=== PATIENT | male | born 2000 | race Two or more races ===

== ENCOUNTER 2023-07-22 13:54 | Outpatient (OUT) | payer OTHER, SELFPAY ==
[2023-07-22 14:24] LABS: Basophils Percent Auto 0.4 % (0.2-2.0); Eosinophils Percent Auto 0.6 % (0.9-7.0); Hematocrit 46.1 % (42.0-54.0); Hemoglobin 15.9 g/dL (14.0-18.0); Immature Granulocytes Abs Auto 0.01 10^3/uL (0.00-0.03); Immature Granulocytes Pct Auto 0.2 % (0.0-0.5); Lymphocytes Absolute Auto 1.4 10^3/uL (1.2-3.8); Lymphocytes Percent Auto 29.4 % (20.5-60.0); Mean Corpuscular HGB Conc 34.5 g/dL (29.9-35.2); Mean Corpuscular Hemoglobin 29.2 pg (25.9-34.0); Mean Corpuscular Volume 84.7 fL (80.0-94.0); Mean Platelet Volume 9.7 fL (9.5-13.5); Monocytes Absolute Auto 0.5 10^3/uL (0.3-0.8); Monocytes Percent Auto 10.2 % (1.7-12.0); Neutrophils Absolute Auto 2.7 10^3/uL (1.4-6.5); Neutrophils Percent Auto 59.2 % (43.0-75.0); Platelet Count 254 10^3/uL (150-450); Red Blood Count 5.44 10^6/uL (4.70-6.10); Red Cell Distribution Width 12.4 % (11.0-15.0); White Blood Count 4.6 10^3/uL (4.0-11.0)
[2023-07-22 15:02] LABS: Alanine Aminotransferase 24 U/L (16-63); Albumin Globulin Ratio 1.4; Albumin Level 4.7 g/dL (3.4-5.0); Alkaline Phosphatase 97 U/L (46-116); Anion Gap 11.5; Aspartate Amino Transferase 20 U/L (15-37); BUN Creatinine Ratio 9.6; Bilirubin Total 2.1 mg/dL (0.2-1.0); Calcium 9.1 mg/dL (8.5-10.1); Carbon Dioxide 30.1 mmol/L (21.0-32.0); Chloride 101 mmol/L (98-107); Chol HDL Ratio 4.3; Cholesterol 216 mg/dL (<=200); Estimated GFR (African America >60 (>=60); Estimated GFR (Non-African Ame >60 (>=60); Globulin 3.4 g/dL; Glucose 79 mg/dL (74-106); HDL Cholesterol 50 mg/dL (40-60); Potassium 3.6 mmol/L (3.5-5.1); Sodium 139 mmol/L (136-145); Total Protein 8.1 g/dL (6.4-8.2); Triglycerides 158 mg/dL (<=150); VLDL CHOLESTEROL 31.6 mg/dL
[2023-07-22 15:21] LABS: Estimated Average Glucose 91 mg/dL; Glycohemoglobin A1C 4.8 % (4.5-6.2)
[2023-07-23 05:07] LABS: HCV Ab Non Reactive (Non Reactive); HIV Ab/p24 Ag Screen Non Reactive (Non Reactive)
== END 2023-07-22 13:55 | disposition home or self-care (01) ==
PROVIDERS: PCP Nurse Practitioner Primary Care; Visit Provider Nurse Practitioner Primary Care
DX: Z00.00 Encounter for general adult medical examination without abnormal findings (principal); Z11.59 Encounter for screening for other viral diseases; Z13.6 Encounter for screening for cardiovascular disorders; Z11.4 Encounter for screening for human immunodeficiency virus [HIV]
CPT/HCPCS: 36415; 80053; 80061; 83036; 85025; 86803; 87389

== ENCOUNTER 2023-07-25 12:55 | Outpatient (OUT) | payer OTHER, SELFPAY ==
--- NOTE | 2023-07-25 | US_ITS ---
The [address] [address] Patient Name: MIRIAM MCKEON MRN: [id number] date: 2000 Sex: M Assigned Patient Location: US Current Patient Location: US Accession/Order Number: [id number] Exam Date: 07/25/2023 13:06 Report Date: 07/25/2023 13:54 At the request of: MILAGRO BYRNE Procedure: US right upper quadrant EXAM: US right upper quadrant HISTORY: elevated liver enzymes R74.8 COMPARISON: None. TECHNIQUE: Real-time Limited abdomen ultrasound. Findings: Evaluation of the pancreas is limited due to overlying bowel gas. The hepatic parenchyma is unremarkable. No focal intrahepatic mass. The main portal vein is patent and demonstrates hepatopedal flow. The gallbladder is fluid-filled and unremarkable without evidence of stones, wall thickening or pericholecystic fluid. The technologist reports a negative sonographic Whitlock's sign. No biliary ductal dilatation. The common bile duct measures 0.5 cm. The right kidney measures 10.0 cm. There is good corticomedullary differentiation. No renal stones or collecting system dilatation. No focal mass or perinephric fluid collection. US/US right upper quadrant IMPRESSION: 1. Unremarkable sonographic appearance of the right upper quadrant. Electronically authenticated by: DAQUAN ALLEN Date: 07/25/2023 13:54
== END 2023-07-25 12:56 | disposition home or self-care (01) ==
LOC: US 12:55
PROVIDERS: PCP Nurse Practitioner Primary Care; Visit Provider Nurse Practitioner Primary Care
DX: R74.8 Abnormal levels of other serum enzymes (principal)
CPT/HCPCS: 76705

== ENCOUNTER 2024-04-28 12:38 | Emergency (ER) | payer OTHER, SELFPAY ==
[2024-04-28 12:44] VITALS: BP 140/73; PULSE 64; TEMP 36.9; O2SAT 98; BMI 26.6
--- OUTSIDE RECORDS SUMMARY | 2024-04-28 12:52 | XMS_ITS | CCD ---
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 Role Phone Rachell Pickard Unavailable Unavailable Unavailable Unavailable Unavailable Unavailable Primary Care Provider UnavailBlue De Los Santos Unavailable Nuria [facility]- Marito T Primary Care Provider SIDDHARTH Hernandez Attending Provider Nuria, Marito T Primary Care Unavailable Blue Hernandez Attending Unavailable Blue Hernandez Admitting Unavailable Blue Hernandez Attending Unavailable Blue Hernandez Admitting Unavailable Shammo Marito T Primary Care Unavailable NONE, XXXX Primary Care Physician Unavailab MELONY Ahuja Referring Unavailable MELONY ALVARADO Attending Unavailable ASTRID TOLEDO Attending UnavailASTRID Navas Admitting UnavailASTRID Navas Attending Unavailbryn QUIÑONES MARITO Referring Unavailable Miki ARORA Attending Unavailable Melanie Marshall Attending Unavailable Allergies Allergy Classification Reported Allergen(s) Allergy Type Date of Onset Reaction(s) Facility (2 sources) No Known Medication Allergies; Translations: [No Known Medication Allergies] Propensity to adverse reactions (disorder) [facility] Repository Medications Current Medications Medication Drug Class(es) Dates Sig (Normalized) Sig (Original) predniSONE 10 mg oral tablet (3 sources) Start: 06-14-2021 predniSONE (DELTASONE) 10 MG tablet Indications: Contusion of left foot, initial encounter , Contusion of left ankle, initial encounter 6 pills QD x1, 5 pills QD X1, 4 pills QD X1, 3 pills QD X1, 2 pills QD X1, 1 pill QD X1 day, half pill QD X2 day. With full meal. 22 tablet 0 06/14/2021 Active Completed/Discontinued Medications Medication Drug Class(es) Dates Sig (Normalized) Sig (Original) ibuprofen 600 mg oral tablet (1 source) Nonsteroidal Anti-inflammatory Drug Start: 05-19-2021 End: 05-19-2021 ibuprofen (ADVIL;MOTRIN) tablet 600 mg naproxen 500 mg oral tablet (1 source) Nonsteroidal Anti-inflammatory Drug Start: 06-06-2020 take 1 tablet by mouth twice daily as needed Naproxen 500 MG Oral Tablet Take 1 tablet twice daily as needed Quantity: 14 Refills: 0 Rachell Pickard PA-C Start : 06-Jun-2020 Active Problems Active Problems Problem Classification Problem Date Documented Da te Episodic/Chronic Anxiety disorders (4 sources) Anxiety 11-13-2023 Chronic Hemorrhoids (1 source) Hemorrhoids; Translations: [Unspecified hemorrhoids] Onset: 04-26-2024 Episodic Mood disorders (4 sources) Depressive disorder 11-13-2023 Chronic Other gastrointestinal disorders (1 source) Constipation, unspecified; Translations: [Constipation, unspecified] Onset: 04-26-2024 Episodic Other liver diseases (3 sources) Jaundice; Translations: [Unspecified jaundice] Episodic Other liver diseases (2 sources) Unspecified jaundice Episodic Other nervous system disorders (4 sources) 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 Comment on above: L arm Ulnar Nerve Tr ansposition and fractional lengthening of FCU Other non-traumatic joint disorders (1 source) Shoulder pain; Translations: [Shoulder pain] Episodic Sprains and strains (1 source) Shoulder strain; Translations: [Shoulder strain, right, initial encounter] Episodic Superficial injury; contusion (1 source) Contusion of heel; Translations: [Contusion of left foot, initial encounter] Episodic Unclassified (1 source) Unspecified jaundice; Translations: [Unspecified jaundice] Onset: 09-17-2023 Past or Other Problems Problem Classification Problem Date Documented Da te Episodic/Chronic Viral infection (1 source) Disease caused by 2019-nCoV; Translations: [COVID-19] Onset: 03-12-2024 NEGATED: Highlighted row has not occurred!Residual codes; unclassified (2 sources) Disease Episodic Results Test Name Value Interpretation Reference Range Facility Ambulatory Visit Summaryon 0 04-26-2024 Ambulatory Visit Summary Ambulatory Visit Summary TAZ MCKEON :2000 Visit Date:04/26/2024 Ambulatory Visit Instructions Your Diagnosis Constipation in male Hemorrhoid Your Care Team Attending Physician - Shannan Alford Primary Care Physician - NONE, XXXX Procedures Performed Extraction of wisdom tooth, Procedure on elbow, Ts and As - Tonsillectomy and adenoidectomy. Discharge Vitals Temperature (Tympanic) 36.6 ?C Heart Rate (Peripheral) 43 Blood Pressure 110/75 Height 176 cm Height 69 in Weight 75 kg Weight 165 lb BMI 24.21 Allergies No Known Medication Allergies Problems Ongoing - Any problem that you are currently receiving treatment for. Anxiety Depression Patient Survey You may receive a survey via text or e-mail asking about your office visit. Please share your experience with us by completing your survey. We appreciate your feedback and thank you for choosing us for your care. Education Materials Hemorrhoids Hemorrhoids are swollen veins that may develop: ? In the butt (rectum). These are called internal hemorrhoids. ? Around the opening of the butt (anus). These are called external hemorrhoids. Hemorrhoids can cause pain, itching, or bleeding. Most of the time, they do not cause serious problems. They usually get better with diet changes, lifestyle changes, and other home treatments. What are the causes? This condition may be caused by: ? Having trouble pooping (constipation). ? Pushing hard (straining) to poop. ? Watery poop (diarrhea). ? . ? Being very overweight (obese). ? Sitting for long periods of time. ? Heavy lifting or other activity that causes you to strain. ? Anal sex. ? Riding a bike for a long period of time. What are the signs or symptoms? Symptoms of this condition include: ? Pain. ? Itching or soreness in the butt. ? Bleeding from the butt. ? Leaking poop. ? Swelling in the area. ? One or more lumps around the opening of your butt. How is this diagnosed? A doctor can often diagnose this condition by looking at the affected area. The doctor may also: ? Do an exam that involves feeling the area with a gloved hand (digital rectal exam). ? Examine the area inside your butt using a small tube (anoscope). ? Order blood tests. This may be done if you have lost a lot of blood. ? Have you get a test that involves looking inside the colon using a flexible tube with a camera on the end (sigmoidoscopy or colonoscopy). How is this treated? This condition can usually be treated at home. Your doctor may tell you to change what you eat, make lifestyle changes, or try home treatments. If these do not help, procedures can be done to remove the hemorrhoids or make them smaller. These may involve: ? Placing rubber bands at the base of the hemorrhoids to cut off their blood supply. ? Injecting medicine into the hemorrhoids to shrink them. ? Shining a type of light energy onto the hemorrhoids to cause them to fall off. ? Doing surgery to remove the hemorrhoids or cut off their blood supply. Follow these instructions at home: Eating and drinking ? Eat foods that have a lot of fiber in them. These include whole grains, beans, nuts, fruits, and vegetables. ? Ask your doctor about taking products that have added fiber (fibersupplements). ? Reduce the amount of fat in your diet. You can do this by: ? Eating low-fat dairy products. ? Eating less red meat. ? Avoiding processed foods. ? Drink enough fluid to keep your pee (urine) pale yellow. Managing pain and swelling ? Take a warm-water bath (sitz bath) for 20 minutes to ease pain. Do this 3?4 times a day. You may do this in a bathtub or using a portable sitz bath that fits over the toilet. ? If told, put ice on the painful area. It may be helpful to use ice between your warm baths. ? Put ice in a plastic bag. ? Place a towel between your skin and the bag. ? Leave the ice on for 20 minutes, 2?3 times a day. General instructions ? Take oqaz-xen-hkcshuz and prescription medicines only as told by your doctor. ? Medicated creams and medicines may be used as told. ? Exercise often. Ask your doctor how much and what kind of exercise is best for you. ? Go to the bathroom when you have the urge to poop. Do not wait. ? Avoid pushing too hard when you poop. ? Keep your butt dry and clean. Use wet toilet paper or moist towelettes after pooping. ? Do not sit on the toilet for a long time. ? Keep all follow-up visits as told by your doctor. This is important. Contact a doctor if you: ? Have pain and swelling that do not get better with treatment or medicine. ? Have trouble pooping. ? Cannot poop. ? Have pain or swelling outside the area of the hemorrhoids. Get help right away if (more content not included)... [facility] Office/Clini c Noteon 04-26-2024 Family Medicine Office/Clinic Note Family Medicine Office/Clinic Note Chief Complaint blood in stool, headache HPI Staff 24 year old male presents with blood in stool, headaches and weakness since this morning History of Present Illness I have reviewed and verified the staff HPI to be accurate for this encounter. Portions of this record have been created with voice recognition software. Occasional wrong-word or ?eofhf-p-zidr? substitutions may have occurred due to the inherent limitations of voice recognition software. 24-year-old male presents with complaints of constipation and blood when wiping with bowel movement this morning. States he has been battling constipation issues and sometimes only goes once every week or so that he is aware of. He has not been keeping track but he knows his bowel movements are not very frequent. He also states he does not drink very much. Denies any fever or chills. Denies any abdominal pain or cramping but does have some bloating. Denies noting any blood on his stool or blood in the toilet. Has not been taking any medications for his symptoms or medications for constipation. 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 Review of Systems PHQ Score Initial Depression Screen Score: 0 SCORE ROS negative unless otherwise stated in HPI. Physical Exam Vitals & Measurements T: 36.6 ?C(Tympanic) HR: 43(Peripheral) BP: 110/75 SpO2: 98% HT: 69 in HT: 176 cm WT: 75 kg WT: 165 lb BMI: 24.21 General: Young adult male normal build in no acute distress. Eyes: not assessed Ears: not assessed Nose: not addressed Mouth: not assessed Neck: not assessed Lungs: clear to auscultation throughout, no wheezing, no rales. No respiratory distress Cardio: regular rate and rhythm, no murmur Abdomen: soft, nondistended, BS normal and active x4. Denies tenderness. No guarding or grimacing Musculoskeletal: not assessed Extremity: not assessed Neurologic: Grossly normal Skin: not assessed Mental Status: Alert and oriented x3. Normal mood and affect Assessment/Plan Based on presentation and history of him stating he only has 1 bowel movement every 1 to 2 weeks I feel his blood coming from his rectum with wiping is related to constipation. 1. Constipation in male (K59.00: Constipation, unspecified) Encouraged patient to drink 60 glasses of water daily. Also recommended trial of MiraLAX daily that can be mixed in his water or juice. Chronic Sub-optimal control Unclear etiology Dietary vs behavioral vs other Discussed how the large intestine regulates water and forms stool Discussed how the average [place] diet can lead to constipation I suggest adding prune juice - starting with 4 ounces daily and increasing to 6 and 8 until benefit is achieved Increase PO water/fluids Stool softeners have been shown to help in some patients Increasing activity can help improve bowel health f/u 1 month 2. Hemorrhoid (K64.9: Unspecified hemorrhoids) Recommend itnq-flk-zgdggdj Anusol cream package instructions if needed for irritation to the anal opening. Follow-up No qualifying data available Patient Education Hemorrhoids, Dqfj-ud-Vkzq Constipation, Adult, Vgkz-vx-Zopp Problem List/Past Medical History Ongoing Anxiety Depression Historical No qualifying data Procedure/Surgical History Extraction of wisdom tooth, Procedure on elbow, Ts and As - Tonsillectomy and adenoidectomy. Medications No active medications Allergies No Known Medication Allergies Social History Tobacco Never (less than 100 in lifetime) Tobacco Use:. Never Smokeless Tobacco Use:., 04/26/2024 Family History Diabetes mellitus type 1: Mother. Hypertension: Mother. Kidney stone: Sister. Immunizations Vaccine Date Status SARS-CoV-2 (COVID-19) Ad26 vaccine 08/29/2021 Recorded SARS-CoV-2 (COVID-19) Ad26 vaccine 03/07/2021 Recorded Normal [facility] Comment on above: Result Comment: Elec tronically Signed By: Shannan Alford\.yaritza\Date and Time Signed: 04/26/24 18:23 EDT Patient Letter FTon 2023 Patient Letter [facility] Patient Letter [facility] [address], [place] [phone] April 26, 2024 TAZ MCKEON [address] [place] [id number] : 2000 Please excuse TAZ MCKEON from work . Date and/or Time of Absence: From: 04/26/24 To: 04/26/24 May return to work on: 04/27/24 Restrictions: None Comments: Please excuse due to an acute illness. Provider Signature: CANDELARIO Johnson Nurse Practitioner [address] [place] [address] [place] [address] [facility] Coding Summary.on 03-17-2024 Coding Summary. JDHGRnnr98HGq3cSz+PG hlYWQ+VU7ROSQzL27tcX SbbC9yR6ZKDCgXFxvjHC NVVDtXQkUojaEmWC5haI NjZXJu IC8+LL8dRJRhIdcrwPXq z6R5oGX9Y27kwn3qXArx sCH5BBUkPeAzrtbhi9qh rLl5QZckCsawZfGp QARqhR79HGW2pP70Fx19 tDGygMEpp8jrnFd9PqGa RABeICU1rMbaAQahd4Nb ZMKuR14cfTIbf2A5 IGNvbGxhcHNlOyBlbXB0 qJ6pLXmooskdw7vvyhgo Bvs8zn57lCXxm6E4eTV0 A5QmalY2FURsyKEg CxcbgTYQxA2pupfks8ib cyuqQtLrCRMhZGb8NHt3 NBQzxLjjDyRmFA27PCQ3 NQItryEqK8WhFQTu vOxgBdS7u4V0Mq9IH5XH ExhcJ8PWJQNPLIvroEU+ SJ15vl51X2KyHjdlBzh0 RGAiQCM3hUT2rV7f FRLzOZxdg8H6uNC7M9Od suChwk7pw8yjKHWiKDju C41nkAOli3J7XXPorXX0 JUQwrSeuHsJrmW41 Oyc+UEKsvVdqp7TsVpph n5cxn6cofOs2WvkeNJMh hhTxyFdsJPJ3o7OuWx4w LTJhjXM3gRU8gM0e XxUbQbJ7RLimN624ShZs zYJkVuboA73yE4BffPK+ AURfPpa0SLCepWdnSY5l Z3NmEXYkdbwliPSv tFocSP6mWGInjhswECBj fU8nOZCaP1l5UzAhZsW2 EItqF9FzSORqmdvcSl61 vD1rPhLkCmQ4GIxu U2ZtocZ8RTSdyBNjQMml LXP4E76hm5B5CTUnVRGy OWY5eLY5fW9ngEvghyox bGVmdDsgdmVydGlj OCjuPDaqC015JNWalWzj PkNvZGluZyBEYXRlOiAg MDYvMjYvMjAyNDwvdGQ+ ISNjCHF3rOopQEIl kQFeQYaoQk7iuMmptKdy CX8xOYPeuupbHUEkcK0r FYYnsMWfhHeyGD9jFSGq pfbhb116HlYtHBC1 KDAgnAKbQ5AhnP9zKhUf ECGyFCVpJ6VevIKzQQsl D351HUodXkK7GUJgzsKe Z0RrBYPlcNxmAtL9 y9D2Vj1Vr2QuuimfH2Xz dPCrAiQaIkvgTCg0F1Kg PjwvdHI+HM62TPXlGH79 GAs0GQE0fRdpJLdt FFKdO6GqpO7gPlOdDYMv ZGRkOyc+PHRhYmxlIHdp ZHRoPScxMDAlJyBzdHls BP9dLb0jOGBvYGRj wLdalDVoXxDam1pcEUMm MPckBJ3xcDsjJ3PzdJP4 HACnh9u1Nk33H70dR6Ec dXA+BQKgsSL3oCE9 gR9yKlIiZxM4GTasN162 NmPxaNGcFgcqr5lqt8qx yMu8RrF7DIIhhqXaeIkh ENQ5c8QtCw96N10k IHdpZHRoPSIxNSUiIHZh iIagce2tyK8kYj4+PGNv gGV8aNT7cV4jSgJbTnR2 DXhmP952PmXyrINo Sgemy6gqg2ogdFz6XiKh OOZpwiJsiMicFND4u9Vb Dy85T0FofLule0LsYkc3 xo52iWCgz2C8tBV4 S0OyCMIzipcqkPIqpDbw UG3dCDXwbkvaPKOyxQ6n QRWxR5d4LnMbLsG6SAam C0BeliY2VQZkqBDn MBPakPXTbB6muwnew2gl boodCtGsKPDiTCd1HOy7 PTDasKpoYzUnWLV1WhU8 YFM0bGJxcV9kdLtf wbthnI4pLoo+SEO0gFSm eDMXBQ8lDqkwbMD+PHRk PGP1sXbpIJdtYQNqtD7j FWBpH9o9KcJyEdA7 FJwjT1UwyqL9AXQffANu GDUftBHYlJ6ekpjkv9wl okdiUuPaVIWrUZl1ROg1 LWFsaWduOiBsZWZ0 YtN6MVS5tEThjQ8naBgk wvlurB0aMch+QmlydGgg VQR3XXi1U7GmFgw1UDKi oWufTB4lxPQcYOji Qv9hoZbocWnkEZ8gLMMn igopa557XcGwd6moXXIl kEZyBBzkLVN2U27sz3F6 VHAtDYIzDVZ8lMS9 uU4izKkknyshsQAjnEgm afKpoBubPSxsHSqcD705 XBEjxCjoLfJcYYg4P0Hz Tpe0WXCrwZpoQL6z vYYxDEyvCq6usMydwNyy NE3dTALffppdm997YaDq s6tlVDLrfNVdUIebFYD0 B75me8U7MKPtGVVq LSW7pND1rZ0hrPwwecst bGVmdDsgdmVydGljYWwt XGctK835GUHnkZbtBiKf aSx3Z3GbLul1AKQd eNbpGW9hxQZyUYwbDc9b tKhsrPetUN2sNRBybiwb b004GbTor4ypAPZlrITc OCqiIEP3T09ct0F6 MRVkSXCoGHQ0qCV1xV2e bGlnbjogbGVmdDsgdmVy vBbhJQinAEkuO459GVBh cDsnPlBhdGllbnQg PXjfRDi0V2VfTrynzRR+ WG36BIVsLV32gVScdUEz m0wlkNj6IbRsCEPoCZE1 kLqtUKaiw3DkQRJl U15kyHVxb9K6TVKlvHxo uJWwAdRbpTY9iN2wLVuv quojl8nislpwQhvqw3ze en72tE67I46oRIgz ZHRoPSIzMCUiIHZhbGln kc8ciN5mEt1+PGNvbCB3 eWP8vF0lNMTnEfH1JLvw S711NlQgiTQiBkxf o1fjy0ubaNt3IfK1SZAh etHkvAnySQQ9p7ThKa62 I52yBZyfVIOoQPVmECHx ZJJrpAbldf3dwV5y Ii8+TDXpwBE5wAK1cW5p OiErGpU6LSusQ434GrIm aTChMzkgA27eM9OjzNI+ LALfRud2BVHqlKln TS5shJCqXOnaMk5iGSB3 TpDsPaUjVUgoU3QmAVGp dwzymuzmkGN2XXCvEIDf qU79Id6ykQpnYRYx qJYKlG3blzehl3vyorqe WaGyMNYlSTv4QZa2XQPl nDrtZzObDVE1AvD6HAA1 pVSftH6gxFrkgzch dD7nI3LzUKZloekwMn24 eA6yBzLxBzU0RHqfSjp+ IH4GCV8PZTNMQFIFNK1B KON6J5QzXvr7NYMq nPurFB7vjGRhZTbrSs4c oBubqRtxCQ7vVJItgedx FDWurJ1tAGEvqMXrnLig MG9tTOTmghqto214 CyTwXYP4LPKdzHDaF4Ea aH9kEcIjPDPqQQCvM1Oh hCCyBMaiA195BCjdScH0 QBKmpcPyW4WqLDNp wLonBiP6w7M3Cl2bDy6t FE0bOYd4RE21BR44gGIg k3Z5pKI2O4GyGVEdgate deljqBF1ODNnTQEy mM94cKHvBSooTu9nf5K4 h519SJNcCCEhsU08Iu2z xLecHFUqeBPNtR2wbwfq m2ssqqtlQhLzXYKg NCj0CMw8FDNcgGctFlZh LGV3JsR0RXJ7eTRgtP0o hUxgixrokX0aZlw+MjQg DNNrmlB9A6RwJqg7 HVCydBwiEQ8lvTYaXRrm Jm6mjDwitWsbQL3pVCHt pdjtWTUyjR2yZXPvaTKg cWudOL2kVZMumlnm q094PjAuHRV0WAUciRAz B3WvvO2eCqXePGJnSGZb M1QmuZOeZSphG809HDgo OmN3TREkvhXiN4Tq NQHoqKpoIfE0s0M4Ot6I AKovFB23VU96zCUoo5M1 qIX8D6QfZJVtusvnxyeu dAI8KEPzVSBuvJ00 pTJhQIkcPo2yl6I7d106 XNXgATPwqV62Cj8uxZxi LNReqRKTvF3sitvna1am cjogIzAwMDAwMDt0 PNs6GSKfcZwzAxNyHGP3 ZxQ0NGJ6fDQaqJ2olOez uiwynM9kQoc+TGFiIERy c8Vpn3BmOC47YN22 S5BwTfvhrNTqxDA+PHRh YmxlIHdpZHRoPScxMDAl OuZxkIzsZA9cIx7yQULt LWNvbGxhcHNlOiBj r2jfFPMqQBhdYN7hdBdf E3ZioXU0KRJki8z5Vo49 C05uV6JpdAG+PGNvbCB3 tCM9eA3wKpHcZpD9 YVjcF084YuPfvXDeMfyh c8jwi9vhnDm9FhLuSEYj yjPmwGyoVIS3t9HuSw95 U33iWYdkBHCsPLYy YRUwMYQjdUwqgy3szA6t Ii8+EHYkkGI2oIP5mS2y FlCkXiE5KGsbG696YdAn kUCjNnbcO37mU6Im dXA+BGZoHap5AWZgnUez UC7riTFlIYyhAn9jQJI8 EwTyGiDbCCrsS4EuIVIx xfotaiepzMO8GZNz MMAnjL19Bz7bpXjwAm3f NUMvVID9DWCdoRIlD5Xy cT6vReQqSFQgRBLrZ1Zh vFWhODyaS959DJmd DqY8DGQxklQtB1CcQFJe zSxeHdN7b3U0Nm3ZtJlf jTThHP8kCnAcCWh2N5Kj Lpe2CHZhcAvbOJ1m tDFaVHuuJg4ueFiulKga VD4dVRXxksatm006GfGk k8etTVUtrJSlZYqiNHW3 D98gq3G1TDRvIBRy YAA0oZS6zP6fiZecyufr bGVmdDsgdmVydGljYWwt XIcdA276YLWuwCzmZgTE Wky0L9JrUmc9BGIt jMzkHE5dmFQxRRkdUc4i kCwgdKekQQ2lUXFvuefg o912KqYvj4caHMLiuKTj NJaxOKH9R91jg8A3 ZTNjDRXrAVB5cME3oP1n bGlnbjogbGVmdDsgdmVy xJdrYJsbUZihI681WXTw lBznWo7GKrm6B7Ta Sfe1BWFgeKxkTK5jdLSu YUbfLo9xyIqcmElkST4s JGOyoawqj272HjPye0qf IDEwcHQgVGltZXM7 B03rm6J9GYXhGLUoVHI4 rTC9cZ4ygCcqcijczSOe dDsgdmVydGljYWwtYWxp W276XABxuVqjQeKu eWVyOjwvdGQ+LG37ni64 Q9BsFropGqq8XTHoBFP3 cRD9qN6cHLNnZBghq1M6 dDU3E1TuxvKblq3n r2mvMYZzCRxnK (more content not included)... Normal [facility] Ambulatory Visit Summaryon 0 03-12-2024 Ambulatory Visit Summary TAZ MCKEON :2000 Visit Date:03/12/2024 Ambulatory Visit Instructions Your Diagnosis Viral URI with cough Pharyngitis Your Care Team Attending Physician - MARII OTLEDO PA-C Primary Care Physician - NONE, XXXX Procedures Performed Extraction of wisdom tooth, Procedure on elbow, Ts and As - Tonsillectomy and adenoidectomy. Discharge Vitals Temperature (Oral) 36.8 ?C Heart Rate (Peripheral) 50 Respiratory Rate 18 Blood Pressure 108/78 Height 176.5 cm Height 69 in Weight 76.8 kg Weight 168.96 lb BMI 24.65 Allergies No Known Medication Allergies Problems Ongoing - Any problem that you are currently receiving treatment for. Anxiety Depression Patient Survey You may receive a survey via text or e-mail asking about your office visit. Please share your experience with us by completing your survey. We appreciate your feedback and thank you for choosing us for your care. Normal [facility] Office/Clini c Noteon 03-12-2024 Family Medicine Office/Clinic Note Chief Complaint Sore throat, Congestion, Exposure to COVID HPI Staff 23 year old Respiratory C/O: Duration: 3 days ago Body aches: Yes Chest congestion: Denies Chills: yes Cough: yes Ear complaints: Denies Eye itching/watering: Denies Fever: Denies Headache: yes Nasal congestion: yes Nasal discharge: yes Poor appetite: Denies Reduced activity: yes Sinus pain/pressure: yes Sneezing: yes Sputum production: yes Wheezing: Denies Ill contacts: Yes, family members/ tested positive for COVID last week OTC: Allergy History of Present Illness Reviewed and agree with above documented HPI by medical administrative specialist. Portions of this record may have been created with voice recognition artificial intelligence software, specifically YaSabe, etrigg and or Octro. Substitutions may have occurred due to the inherent limitations of voice recognition and artificial intelligence software. Patient is a 23-year-old male who presents to [facility], for sore throat, nonproductive cough, sinus congestion, patient states symptoms started 3 days ago, states his [id number]-[id number] son is ill, with upper respiratory infection, patient states his tested positive for COVID-19 last week, she retested herself and she is negative for few days ago, he is concerned he might have COVID-19. Patient states he does not smoke, vape, has a history of asthma or bronchitis. Patient states the cough is nonproductive. Patient stated when eating drink he has a sense of taste and smell intact, has some discomfort swallowing, patient states the cough is nonproductive when he clears his sinuses is greenish color, denies having any worsening headache, different type of headache, nausea or vomiting, fevers or chills, difficulty swallowing, productive cough, worsening cough, chest pain, shortness of breath, or weakness. Review of Systems PHQ Score Initial Depression Screen Score: 0 SCORE Physical Exam Vitals & Measurements T: 36.8 ?C(Oral) HR: 50(Peripheral) RR: 18 BP: 108/78 SpO2: 99% HT: 69 in HT: 176.5 cm WT: 76.8 kg WT: 168.96 lb BMI: 24.65 General: Well developed, well nourished, in no acute distress patient does not appear ill or septic. No respiratory distress. Patient answers questions appropriately and in complete sentences, and follow commands appropriately. Head: Normocephalic/atraum atic no upper respiratory infection. Eyes: Pupils equal, round, and reactive to light. Conjunctivae and sclerae normal Ears: Bilateral TMs and bilateral external canals are both within normal limits. Hearing is intact. Nose: No deformity, discharge, inflammation, or lesions Mouth: Mucous membranes moist. Normal oropharynx, and posterior pharynx without erythremia, lesions, exudates, or enlarged tonsils. No trismus. No difficulty swallowing. Neck: Neck supple. No masses or palpable cervical nodes. No mastoid tenderness. Lungs: Normal respiratory effort and clear to auscultation throughout. Cardio: regular rate and rhythm, no murmur Extremity: Patient is able to move all 4 extremities equally without pain or weakness. Neurologic: Grossly normal Skin: No rashes, ulcerations, or suspicious lesions Lymph Nodes: no lad Mental Status: alert, active Assessment/Plan Patient agrees to swabs for COVID-19 and strep pharyngitis. No other swabs or chest imaging are indicated at this time. Discussed with patient he is positive for COVID-19, and negative for rapid strep, verbally understands he will be contacted with a positive throat culture results, at that time he can be placed on antibiotic. 23-year-old male presented to [facility], for COVID-19 virus infection, patient did not appear ill or septic, eating and drinking in the examination room, no respiratory distress, difficulty swallowing. Patient was instructed to take mjwa-awk-gsnvinm ibuprofen and Tylenol together for fevers, body aches, headaches. Drink plenty water stay hydrated. Wear a mask for the next 5 days, inform his family members of him being positive for COVID-19, and given a work excuse note, and follow-up with primary care provider as needed. 1. COVID-19 virus infection (U07.1: COVID-19) See above Orders: Rapid COVID POC 75325 Rapid Strep POC 26616 Strep Screen Culture Follow-up With When Contact Information NONE, XXXX [phone] Additional Instructions: Patient Education COVID-19 Problem List/Past Medical History Ongoing Anxiety Depression Historical No qualifying data Procedure/Surgical History Extraction of wisdom tooth, Procedure on elbow, Ts and As - Tonsillectomy and adenoidectomy. Medications No active medications Allergies No Known Medication Allergies Social History Tobacco Never (less than 100 in lifetime) Tobacco Use:. Never Smokeless Tobacco Use:., 03/12/2024 Family History Diabetes mellitus type 1: Mother. Hypertension: Mother. Kidney stone: Sister. Immunizations Vaccine Date Status ANGEL (more content not included)... [facility] Comment on above: Result Comment: Elec tronically Signed By: PARIS RESENDIZ, MARII\.br\Date and Time Signed: 03/12/24 12:53 EDT Patient Letter FTon 2023 Patient Letter [facility] [address] [place] [address] March 12, 2024 TAZ MCKEON [address] [place] [id number] : 2000 Please excuse TAZ MCKEON from work . Date and/or Time of Absence: From: 03/12/24 May return to work on: 03/17/24 Restrictions: None Comments: Please excuse due to an acute illness. Provider Signature: Marii Toledo PA-C [address] [place] [address] [place] [address] [facility] PT - [place] 02-23-2024 PT - Orders [id number]# 1.00TIFF [facility] Nonvisit Note - PTon 024 Nonvisit Note - PT Chart reviewed with eval prepped for scheduled eval. KK [facility] OT - Home Exercise Programon 01-05-2024 OT - Home Exercise Program [id number] 8#1.00TIFF [facility] OT - [place] 12-25-2023 OT - Orders [id number] #1.00TIFF [facility] OT - Assessmentson OT - Assessments [id number] 8#1.00TIFF Normal [facility] OT - Consentson 12-19-2023 OT - Consents [id number] 6#1.00TIFF Normal [facility] OT - Home Exercise Programon 12-19-2023 OT - Home Exercise Program [id number] 4#1.00TIFF Normal [facility] OT - Protocolson 12-19-2023 OT - Protocols [id number] 3#1.00TIFF Normal [facility] Consent for Treatmenton 11-21 Consent for Treatment [id number] #1.00TIFF [facility] OT - [place] 12-18-2023 OT - Orders [id number] #1.00TIFF [facility] Outside Recordson 12-18-2023 Outside Records [id number] #1.00TIFF [facility] Bilirubin, Total and Directo n 09-17-2023 Bilirubin [Mass/Vol] 1.9 mg/dL High 0.3-1.0 [facility] Comment on above: Result Comment: Samp les from patients who have taken Naproxen have shown spurious elevation in Total Bilirubin levels. A metabolite of Naproxen, O-desmethylnaproxen, has been shown to interfere with the Jendrsuzanik-Grof method for measuring Total Bilirubin. Performed By: #### H APT, BILTD #### [facility] [address] [place] [address] Bilirubin,Indirect 1.6 mg/dL Normal [facility] Comment on above: Result Comment: PERF ORMED BY: [place] [address] PATHOLOGIST ARTIFICIAL LEATHER CALENDER OPERATOR SON SOLARES M.D. Performed By: #### H APT, BILTD #### [facility] [address] Bilirubin.indirect [Mass/Vol] 0.30 mg/dL High 0.03-0.18 [facility] Comment on above: Performed By: #### H APT, BILTD #### [facility] [address] Haptoglobinon 09-17-2023 Haptoglobin 84 mg/dL Normal 44-215 [facility] Comment on above: Result Comment: PERF ORMED BY: [place] [address] PATHOLOGIST ARTIFICIAL LEATHER CALENDER OPERATOR SON SOLARES M.D. Performed By: #### H APT, BILTD #### [facility] [address] Alanine aminotransferase [En zymatic activity/volume] in Serum or PlasmaOrdered By: Blue Hernandez on 08-13-2023 ALT [Catalytic activity/Vol] 21 U/L 7-52 [facility] Albumin [Mass/volume] in Ser um or Plasma by Bromocresol green (BCG) dye binding methoOrdered By: Blue Hernandez on 08-13-2023 Albumin BCG dye [Mass/Vol] 5.1 g/dL 3.5-5.7 [facility] Alkaline phosphatase [Enzyma tic activity/volume] in Serum or PlasmaOrdered By: Blue Hernandez on 08-13-2023 ALP [Catalytic activity/Vol] 88 U/L 34-104 [facility] Aspartate aminotransferase [ Enzymatic activity/volume] in Serum or PlasmaOrdered By: Blue Hernandez on 08-13-2023 AST [Catalytic activity/Vol] 23 U/L 13-39 [facility] Basophils Auto (Bld) [#/Vol] Ordered By: Blue Hernandez on 08-13-2023 Basophils (Bld) [#/Vol] 0.0 10*3/uL 0.0-0.2 [facility] Basophils/100 WBC Auto (Bld) Ordered By: Blue Hernandez on 08-13-2023 Basophils/100 WBC (Bld) 0.6 % . [facility] Bilirubin.direct [Mass/volum e] in Serum or PlasmaOrdered By: Blue Hernandez on 08-13-2023 Bilirubin.direct [Mass/Vol] 0.20 mg/dL 0.03-0.18 [facility] Bilirubin.total [Mass/volume ] in Serum or PlasmaOrdered By: Blue Hernandez on 08-13-2023 Bilirubin [Mass/Vol] 1.9 mg/dL 0.3-1.0 [facility] Comment on above: Samples from patient s who have taken Naproxen have shown spurious elevation in Total Bilirubin levels. A metabolite of Naproxen, O-desmethylnaproxen, has been shown to interfere with the Jendrsuzanik-Herberf method for measuring Total Bilirubin. Complete Blood Count Auto Di ffon 08-13-2023 Basophils (Bld) [#/Vol] 0.0 10*3/uL Normal 0.0-0.2 [facility] Comment on above: Result Comment: PERF ORMED BY: [place] [address] PATHOLOGIST ARTIFICIAL LEATHER CALENDER OPERATOR SON SOLARES M.D. Performed By: #### C BC, HAPT, HEPATIC #### [facility] [address] [place] [address] Basophils/100 WBC (Bld) 0.6 % Normal . [facility] Comment on above: Performed By: #### C BC, HAPT, HEPATIC #### [facility] [address] Eosinophils (Bld) [#/Vol] 0.0 10*3/uL Normal 0.0-0.45 [facility] Comment on above: Performed By: #### C BC, HAPT, HEPATIC #### [facility] [address] [place] [address] [place] Eosinophils/100 WBC (Bld) 0.4 % Normal . [facility] Comment on above: Performed By: #### C BC, HAPT, HEPATIC #### [facility] [address] Erythrocyte distribution width (RBC) [Ratio] 13.6 % Normal 12.0-14.8 [facility] Comment on above: Performed By: #### C BC, HAPT, HEPATIC #### [facility] [address] Hematocrit (Bld) [Volume fraction] 43.3 % Normal 38.8-50.0 [facility] Comment on above: Performed By: #### C BC, HAPT, HEPATIC #### [facility] [address] Hemoglobin (Bld) [Mass/Vol] 15.1 g/dL Normal 13.0-17.0 [facility] Comment on above: Performed By: #### C BC, HAPT, HEPATIC #### [facility] [address] Lymphocytes (Bld) [#/Vol] 1.2 10*3/uL Normal 1.00-4.8 [facility] Comment on above: Performed By: #### C BC, HAPT, HEPATIC #### [address] Lymphocytes/100 WBC (Bld) 29.2 % Normal . [facility] Comment on above: Performed By: #### C BC, HAPT, HEPATIC #### [facility] [address] MCH (RBC) [Entitic mass] 29.2 pg Normal 27.5-35.2 [facility] Comment on above: Performed By: #### C BC, HAPT, HEPATIC #### [facility] [address] MCV (RBC) [Entitic vol] 83.5 fL Normal 83.5-101 [facility] Comment on above: Performed By: #### C BC, HAPT, HEPATIC #### [facility] [address] Mean Corpuscular HGB Conc 35.0 g/dL Normal 32.5-35.6 [facility] Comment on above: Performed By: #### C BC, HAPT, HEPATIC #### [address] Monocytes (Bld) [#/Vol] 0.5 10*3/uL Normal 0.0-0.8 [facility] Comment on above: Performed By: #### C BC, HAPT, HEPATIC #### [facility] [address] [place] [id number] [place] Monocytes/100 WBC (Bld) 10.9 % Normal . [facility] Comment on above: Performed By: #### C BC, HAPT, HEPATIC #### [facility] [address] [place] [phone] [place] Neutrophils (Bld) [#/Vol] 2.5 10*3/uL Normal 1.8-7.7 [facility] Comment on above: Performed By: #### C BC, HAPT, HEPATIC #### [facility] [address] [place] [address] [place] Neutrophils/100 WBC (Bld) 58.9 % Normal . [facility] Comment on above: Performed By: #### C BC, HAPT, HEPATIC #### [facility] [address] [place] [address] [place] NRBC% 0.3 /100{WBC} Normal 0-0.5 [facility] Comment on above: Performed By: #### C BC, HAPT, HEPATIC #### [facility] [address] [place] [address] [place] Platelet mean volume (Bld) [Entitic vol] 7.8 fL Normal 6.6-10.1 [facility] Comment on above: Performed By: #### C BC, HAPT, HEPATIC #### [facility] [address] [place] [id number] [place] WBC (Bld) [#/Vol] 4.3 10*3/uL Normal 4.1-10.5 [facility] Comment on above: Performed By: #### C BC, HAPT, HEPATIC #### [facility] [address] [place] [phone] [place] Basophils (Bld) [#/Vol] 0.036224909 10*3/uL Normal 0.0-0.2 10*3/uL [facility] Other Basophils/100 WBC (Bld) 0.600 % . % [facility] Other Eosinophils (Bld) [#/Vol] 0.965006716 10*3/uL Normal 0.0-0.45 10*3/uL [facility] Other Eosinophils/100 WBC (Bld) 0.400 % . % [facility] Other Erythrocyte distribution width (RBC) [Ratio] 13.600 % Normal 12.0-14.8 % [facility] Other Hematocrit (Bld) [Volume fraction] 43.300 % Normal 38.8-50.0 % [facility] Other Hemoglobin (Bld) [Mass/Vol] 15.824222 g/dL Normal 13.0-17.0 g/dL [facility] Other Lymphocytes (Bld) [#/Vol] 1.815244584 10*3/uL Normal 1.00-4.8 10*3/uL [facility] Other Lymphocytes/100 WBC (Bld) 29.200 % . % [facility] Other MCH (RBC) [Entitic mass] 29.2000 pg Normal 27.5-35.2 pg [facility] Other MCV (RBC) [Entitic vol] 83.5000 fL Normal 83.5-101 fL [facility] Other Monocytes (Bld) [#/Vol] 0.071615615 10*3/uL Normal 0.0-0.8 10*3/uL [facility] Other Monocytes/100 WBC (Bld) 10.900 % . % [facility] Other Neutrophils (Bld) [#/Vol] 2.291762104 10*3/uL Normal 1.8-7.7 10*3/uL [facility] Other Neutrophils/100 WBC (Bld) 58.900 % . % [facility] Other Platelet mean volume (Bld) [Entitic vol] 7.8000 fL Normal 6.6-10.1 fL [facility] Other WBC (Bld) [#/Vol] 4.369431278 10*3/uL Normal 4.1 -10.5 10*3/uL [facility] Other Complete Blood Count Auto Diff 4.3 10*3/uL Normal 4.1-10.5 10*3/uL [facility] Other Complete Blood Count Auto Diff 35.0 g/dL Normal 32.5-35.6 g/dL [facility] Other Complete Blood Count Auto Diff 0.3 /100{WBC} Normal 0-0.5 /100{WBC} [facility] Other Complete Blood Count Auto Di ffOrdered By: Blue Hernandez on 08-13-2023 Platelets (Bld) [#/Vol] 240 10*3/uL Normal 150-450 [facility] Comment on above: Performed By: #### C BC, HAPT, HEPATIC #### [facility] [address] RBC (Bld) [#/Vol] 5.18 10*6/uL Normal 3.90-5.60 [facility] Comment on above: Performed By: #### C BC, HAPT, HEPATIC #### [facility] [address] [place] [address] [place] Eosinophils Auto (Bld) [#/Vo l]Ordered By: Blue Hernandez on 08-13-2023 Eosinophils (Bld) [#/Vol] 0.0 10*3/uL 0.0-0.45 [facility] Eosinophils/100 WBC Auto (Bl d)Ordered By: Blue Hernandez on 08-13-2023 Eosinophils/100 WBC (Bld) 0.4 % . [facility] Erythrocyte distribution wid th Auto (RBC) [Ratio]Ordered By: Blue Hernandez on 08-13-2023 Erythrocyte distribution width (RBC) [Ratio] 13.6 % 12.0-14.8 [facility] Globulin Calc (S) [Mass/Vol] Ordered By: Blue Hernandez on 08-13-2023 Globulin (S) [Mass/Vol] 2.4 g/dL [facility] Haptoglobinon 08-13-2023 Haptoglobin 89 mg/dL Normal 44-215 [facility] Comment on above: Result Comment: PERF ORMED BY: [place] [address] PATHOLOGIST ARTIFICIAL LEATHER CALENDER OPERATOR SON SOLARES M.D. Performed By: #### C BC, HAPT, HEPATIC #### [address] [address] [facility] Haptoglobin [Mass/volume] in Serum or PlasmaOrdered By: Blue Hernandez on 08-13-2023 Haptoglobin [Mass/Vol] 89 mg/dL 44-215 [facility] Hematocrit Auto (Bld) [Volum e fraction]Ordered By: Blue Hernandez on 08-13-2023 Hematocrit (Bld) [Volume fraction] 43.3 % 38.8-50.0 [facility] Hemoglobin [Mass/volume] in BloodOrdered By: Blue Hernandez on 08-13-2023 Hemoglobin (Bld) [Mass/Vol] 15.1 g/dL 13.0-17.0 [facility] Hepatic Panelon 08-13-2023 Albumin [Mass/Vol] 5.1 g/dL Normal 3.5-5.7 [facility] Comment on above: Performed By: #### C BC, HAPT, HEPATIC #### [place] [id number] [facility] Albumin/Globulin [Mass ratio] 2.1 {ratio} Normal [facility] Comment on above: Performed By: #### C BC, HAPT, HEPATIC #### [place] [id number] [facility] ALP [Catalytic activity/Vol] 88 U/L Normal 34-104 [facility] Comment on above: Result Comment: PERF ORMED BY: [address] [address] PATHOLOGIST ARTIFICIAL LEATHER CALENDER OPERATOR SON SOLARES M.D. Performed By: #### C BC, HAPT, HEPATIC #### [facility] [address] [place] [phone] [place] ALT [Catalytic activity/Vol] 21 U/L Normal 7-52 [facility] Comment on above: Performed By: #### C BC, HAPT, HEPATIC #### [facility] [address] [place] [address] [place] AST [Catalytic activity/Vol] 23 U/L Normal 13-39 [facility] Comment on above: Performed By: #### C BC, HAPT, HEPATIC #### [facility] [address] [place] [id number] [facility] Bilirubin [Mass/Vol] 1.9 mg/dL High 0.3-1.0 [facility] Comment on above: Result Comment: Samp les from patients who have taken Naproxen have shown spurious elevation in Total Bilirubin levels. A metabolite of Naproxen, O-desmethylnaproxen, has been shown to interfere with the Jendrassik-Grof method for measuring Total Bilirubin. Performed By: #### C BC, HAPT, HEPATIC #### [facility] [address] Bilirubin,Indirect 1.7 mg/dL Normal [facility] Comment on above: Performed By: #### C BC, HAPT, HEPATIC #### [facility] [address] [place] [phone] [place] Bilirubin.indirect [Mass/Vol] 0.20 mg/dL High 0.03-0.18 [facility] Comment on above: Performed By: #### C BC, HAPT, HEPATIC #### [facility] [address] [place] [phone] [place] Globulin (S) [Mass/Vol] 2.4 g/dL Normal [facility] Comment on above: Performed By: #### C BC, HAPT, HEPATIC #### [facility] [address] [place] [phone] [place] Protein [Mass/Vol] 7.5 g/dL Normal 6.4-8.9 [facility] Comment on above: Performed By: #### C BC, HAPT, HEPATIC #### [facility] [address] [place] [id number] [facility] Leukocytes [#/volume] correc cathie for nucleated erythrocytes in Blood by Automated counOrdered By: Blue Hernandez on 08-13-2023 WBC corrected for nucl RBC Auto (Bld) [#/Vol] 4.3 10*3/uL 4.1-10.5 [facility] Lymphocytes Auto (Bld) [#/Vo l]Ordered By: Blue Hernandez on 08-13-2023 Lymphocytes (Bld) [#/Vol] 1.2 10*3/uL 1.00-4.8 [facility] Lymphocytes/100 WBC Auto (Bl d)Ordered By: Blue Hernandez on 08-13-2023 Lymphocytes/100 WBC (Bld) 29.2 % . [facility] MCH Auto (RBC) [Entitic mass ]Ordered By: Blue Hernandez on 08-13-2023 MCH (RBC) [Entitic mass] 29.2 pg 27.5-35.2 [facility] MCHC Auto (RBC) [Mass/Vol]Or dered By: Blue Hernandez on 08-13-2023 MCHC (RBC) [Mass/Vol] 35.0 g/dL 32.5-35.6 [facility] MCV Auto (RBC) [Entitic vol] Ordered By: Blue Hernandez on 08-13-2023 MCV (RBC) [Entitic vol] 83.5 fL 83.5-101 [facility] Monocytes Auto (Bld) [#/Vol] Ordered By: Blue Hernandez on 08-13-2023 Monocytes (Bld) [#/Vol] 0.5 10*3/uL 0.0-0.8 [facility] Monocytes/100 WBC Auto (Bld) Ordered By: Blue Hernandez on 08-13-2023 Monocytes/100 WBC (Bld) 10.9 % . [facility] Neutrophils Auto (Bld) [#/Vo l]Ordered By: Blue Hernandez on 08-13-2023 Neutrophils (Bld) [#/Vol] 2.5 10*3/uL 1.8-7.7 [facility] Neutrophils/100 WBC Auto (Bl d)Ordered By: Blue Hernandez on 08-13-2023 Neutrophils/100 WBC (Bld) 58.9 % . [facility] Nucleated erythrocytes [Pres ence] in Blood by Automated countOrdered By: Blue Hernandez on 08-13-2023 Nucleated RBC Auto Ql (Bld) 0.3 /100{WBC} 0-0.5 [facility] Platelet mean volume Auto (B ld) [Entitic vol]Ordered By: Blue Hernandez on 08-13-2023 Platelet mean volume (Bld) [Entitic vol] 7.8 fL 6.6-10.1 [facility] Protein [Mass/volume] in Ser um or PlasmaOrdered By: Blue Hernandez on 08-13-2023 Protein [Mass/Vol] 7.5 g/dL 6.4-8.9 [facility] Serum or plasma albumin/glob ulin mass ratioOrdered By: Blue Hernandez on 08-13-2023 Albumin/Globulin [Mass ratio] 2.1 {ratio} [facility] Serum or plasma non-glucuron idated bilirubin measurement (mass/volume)Ordered By: Blue Hernandez on 08-13-2023 Bilirubin.indirect [Mass/Vol] 1.7 mg/dL [facility] WBC Auto (Bld) [#/Vol]Ordere d By: Blue Hernandez on 08-13-2023 WBC (Bld) [#/Vol] 4.3 10*3/uL 4.1-10.5 [facility] MRI Low Ext Joint w/o Contra st Lefton 06-04-2021 MRI Low Ext Joint w/o Contrast Left Patient Name: TAZ MCKEON Magnetic Resonance Imaging ACCESSION EXAM DATE/TIME PROCEDURE ORDERING PROVIDER [id number] 06/04/2021 11:53 EDT MRI Low Ext Joint w/o SANTA DO, MARTIN Contrast Left CPT code 45665 Reason For Exam (MRI Low Ext Joint w/o Contrast Left) left ankle injury Report Examination: MRI left ankle Indication: left ankle injury Technique: Multiplanar multi-sequence MRI images of the left ankle were obtained. Findings: Trace fluid is present adjacent to the medial flexor tendons. The Achilles, peroneal tendons, medial flexor tendons and extensor tendons are otherwise grossly intact and unremarkable. Trace fluid is present in the retrocalcaneal bursa. The distal tibial-fibular ligaments, lateral collateral ligament and deltoid ligament are grossly intact. Small joint effusion of the tibiotalar joint and subtalar joint are present. No occult fracture is demonstrated. There is no osteochondral lesion of the talus. No articular erosions. The musculature is unremarkable. The sinus tarsi and plantar fascia are unremarkable. Impression: Mild tenosynovitis of the posterior tibial tendon and flexor digitorum longus. Small amount of fluid surrounds the FHL may be secondary to communication with the joint space or tenosynovitis. Report Dictated on Final Dictated: 06/05/2021 1:34 pm Dictating Physician: MD NESBITT KRIKOR Signed Date and Time: 06/05/2021 1:40 pm Signed by: MD NESBITT KRIKOR Transcribed Date and Time: 06/05/2021 1:34 [facility] CR Ankle 3+ Views Lefton CR Ankle 3+ Views Left Patient Name: TAZ MCKEON Diagnostic Radiology ACCESSION EXAM DATE/TIME PROCEDURE ORDERING PROVIDER [id number] 05/19/2021 20:47 EDT CR Ankle 3+ Views Left ASTRID GUSMAN MADALINA CPT code 41994 Reason For Exam (CR Ankle 3+ Views Left) hit directly in achilles with wood trim. lots of pain. hx of tendonitis in this before Report Examination: Left foot three views Indication: hit directly in achilles with wood trim. lots of pain. hx of tendonitis in this before Findings: No acute fracture or dislocation is demonstrated. The joint spaces are grossly maintained. The soft tissues are grossly unremarkable. Impression: No acute osseous abnormality. MRI study of choice for assessment of the Achilles. Report Dictated on Final Dictated: 05/19/2021 8:51 pm Dictating Physician: MD NESBITT KRIKOR Signed Date and Time: 05/19/2021 8:52 pm Signed by: MD LAZ, JONNY Transcribed Date and Time: 05/19/2021 8:51 Normal [facility] ED Provider Noteon ED Provider Note Attestation signed by Jono Vela MD at 05/20/2021 3:44 AM The Advanced Practice Provider saw this patient independently. I was available for supervision as the Attending Physician, but I was not asked to see this patient. [facility] EMERGENCY DEPT eMERGENCY dEPARTMENT eNCOUnter Pt Name: Taz Mckeon Birthdate 2000 Date of evaluation: 05/19/2021 Provider: SIDDHARTH Diaz CNP I have evaluated this patient on my own, per my scope of practice with an attending physician available for consultation. CHIEF COMPLAINT Chief Complaint Patient presents with ? Ankle Pain Left HISTORY OF PRESENT ILLNESS (Location/Symptom, Timing/Onset,Context /Setting, Quality, Duration, Modifying Factors, Severity) Note limiting factors. HPI Taz Mckeon is a 21 y.o. male who presents to the emergency department with an injury to the left ankle/Achilles region. Patient states he had a bunch of wooden trim fall onto the back of his leg at work today. States he had some trouble walking after the accident but it got better after he iced it. No open wounds. Denies any other falls. Nursing Notes were reviewed. REVIEW OF SYSTEMS (2+ for4; 10+ for level 5) Review of Systems Constitutional: Negative for activity change, appetite change, chills and fever. HENT: Negative for congestion, postnasal drip, rhinorrhea, sinus pressure and sore throat. Eyes: Negative for discharge and redness. Musculoskeletal: Positive for arthralgias and myalgias. Negative for back pain, joint swelling and neck stiffness. Skin: Negative for rash and wound. Neurological: Negative for dizziness, syncope, weakness, light-headedness and headaches. Hematological: Negative for adenopathy. Psychiatric/Behavior al: Negative for agitation and confusion. All other systems reviewed and are negative. PAST MEDICAL HISTORY History reviewed. No pertinent past medical history. SURGICALHISTORY Past Surgical History: Procedure Laterality Date ? ELBOW SURGERY Right ? TONSILLECTOMY CURRENT MEDICATIONS Previous Medications No medications on file Patient has no known allergies. FAMILY HISTORY History reviewed. No pertinent family history. SOCIAL HISTORY Social History Socioeconomic History ? Marital status: Single Spouse name: None ? Number of children: None ? Years of education: None ? Highest education level: None Occupational History ? None Tobacco Use ? Smoking status: Never Smoker ? Smokeless tobacco: Never Used Vaping Use ? Vaping Use: Never used Substance and Sexual Activity ? Alcohol use: Not Currently ? Drug use: Never ? Sexual activity: None Other Topics Concern ? None Social History Narrative ? None Social Determinants of Health Financial Resource Strain: ? Difficulty of Paying Living Expenses: Food Insecurity: ? Worried About Running Out of Food in the Last Year: ? Ran Out of Food in the Last Year: Transportation Needs: ? Lack of Transportation (Medical): ? Lack of Transportation (Non-Medical): Physical Activity: ? Days of Exercise per Week: ? Minutes of Exercise per Session: Stress: ? Feeling of Stress : Social Connections: ? Frequency of Communication with Friends and Family: ? Frequency of Social Gatherings with Friends and Family: ? Attends Christian Services: ? Active Member of Clubs or Organizations: ? Attends Club or Organization Meetings: ? Marital Status: Intimate Partner Violence: ? Fear of Current or Ex-Partner: ? Emotionally Abused: ? Physically Abused: ? Sexually Abused: SCREENINGS @FLOW([id number])@ PHYSICAL EXAM (5+ for level 4, 8+ for level 5) ED Triage Vitals [05/19/211931] BP Temp Temp Source Pulse Resp SpO2 Height Weight 133/77 98.6 ?F (37 ?C) Temporal 66 16 98 % -- 145 lb (65.8 kg) Physical Exam Vitals and nursing note reviewed. Constitutional: General: He is not in acute distress. Appearance: Normal appearance. He is normal weight. He is not ill-appearing or toxic-appearing. HENT: Head: Normocephalic and atraumatic. Right Ear: External ear normal. Left Ear: External ear normal. Eyes: Conjunctiva/sclera: Conjunctivae normal. Pupils: Pupils are equal, round, and reactive to light. Musculoskeletal: Cervical back: Normal range of motion and neck supple. No rigidity or tenderness. Comments: Mild pain with dorsiflexion and plantarflexion of the foot, negative Smith test, no obvious deformity or swelling the leg is neurovascularly intact. Lymphadenopathy: Cervical: No cervical adenopathy. Skin: General: Skin is warm and dry. Capillary Refill: Capillary refill takes less than 2 seconds. Coloration: Skin is not jaundiced or pale. Findings: No bruising. Neurological: General: No focal deficit present. (more content not included)... Normal [facility] ED Provider Note Emergency Department Encounter [facility] EMERGENCY DEPT Patient: Taz Mckeon : 2000 Date of Evaluation: 05/19/2021 ED Provider: Rosa Gusman PA-C As the [id number], I performed a medical screening history and physical exam on this patient. HISTORY OF PRESENT ILLNESS In brief, Taz Mckeon is a 21 y.o. male that presents for evaluation of left ankle pain. Patient works at [employer] and was hit with wood train today directly into the left Achilles tendon. Has had Achilles tendinitis in the past in the same leg and feels similar to then. Having a hard time flexing and extending for this exacerbates the pain. Rates the pain a 7 out of 10. No numbness or tingling. PHYSICAL EXAM ED Triage Vitals [05/19/211931] Enc Vitals Group BP 133/77 Pulse 66 Resp 16 Temp 98.6 ?F (37 ?C) Temp Source Temporal SpO2 98 % Weight 145 lb (65.8 kg) Height Head Circumference Peak Flow Pain Score Pain Loc Pain Edu? Excl. in GC? On brief exam, patient has tenderness to palpation over the left Achilles tendon. Plantar flexion dorsiflexion slow but able to be performed. X-rays to be obtained for further evaluation. Discussed with the patient follow-up with orthopedics for MRI and further consultation.. We will initiate diagnostics/treatmen ts as indicated and place in main ED as soon as available. Rosa Gusman PA-C [employer] Rosa Gusman PA-C 05/19/211939 [facility] XR ANKLE LEFT (MIN 3 VIEWS)O rdered By: Rosa Gusman on 05-19-2021 Patient Name: TAZ MCKEON Diagnostic Radiology ACCESSION EXAM DATE/TIME PROCEDURE ORDERING PROVIDER [id number] 05/19/2021 20:47 EDT CR Ankle 3+ Views Left ASTRID GUSMAN MADALINA CPT code 48803 Reason For Exam (CR Ankle 3+ Views Left) hit directly in achilles with wood trim. lots of pain. hx of tendonitis in this before Report Examination: Left foot three views Indication: hit directly in achilles with wood trim. lots of pain. hx of tendonitis in this before Findings: No acute fracture or dislocation is demonstrated. The joint spaces are grossly maintained. The soft tissues are grossly unremarkable. Impression: No acute osseous abnormality. MRI study of choice for assessment of the Achilles. Report Dictated on --- Final --- Dictated: 05/19/2021 8:51 pm Dictating Physician: MD NESBITT KRIKOR Signed Date and Time: 05/19/2021 8:52 pm Signed by: MD NESBITT KRIKOR Transcribed Date and Time: 05/19/2021 8:51 [facility] Work Phone: [facility] Incoming Radiology Results From [facility] - 05/19/2021 8:53 PM EDT Patient Name: TAZ MCKEON Diagnostic Radiology ACCESSION EXAM DATE/TIME PROCEDURE ORDERING PROVIDER [id number] 05/19/2021 20:47 EDT CR Ankle 3+ Views Left ASTRID GUSMAN MADALINA CPT code 22528 Reason For Exam (CR Ankle 3+ Views Left) hit directly in achilles with wood trim. lots of pain. hx of tendonitis in this before Report Examination: Left foot three views Indication: hit directly in achilles with wood trim. lots of pain. hx of tendonitis in this before Findings: No acute fracture or dislocation is demonstrated. The joint spaces are grossly maintained. The soft tissues are grossly unremarkable. Impression: No acute osseous abnormality. MRI study of choice for assessment of the Achilles. Report Dictated on --- Final --- Dictated: 05/19/2021 8:51 pm Dictating Physician: MD NESBITT KRIKOR Signed Date and Time: 05/19/2021 8:52 pm Signed by: MD NESBITT KRIKOR Transcribed Date and Time: 05/19/2021 8:51 [facility] Work Phone: [facility] Work Phone: Office Visit (Urgent Care)on 03-09-2021 Follow-up visit Diagnoses/Problems Assessed Vomiting and diarrhea (787.03,787.91) (R11.10,R19.7) Patient Discussion/Summary You may return to work as long as you are not having fevers. Drink plenty of fluids and get plenty of rest over the next 24 hours. History of Present Illness Patient is a 20-year-old male who presents with nausea, vomiting and fevers along with diarrhea. He states he got his Covid vaccine 2 days ago and yesterday he started getting sick. He said he started to feel a little bit better today but it was still thick and could not go to work. They are requiring a note. Gen: No fatigue, POSITIVE fever, sweats. Head: No headache, trauma. Eyes: No vision loss, double vision, drainage, eye pain. ENT: No hearing changes, pain, epistaxis, congestion Cardiac: No chest pain Pulmonary: No shortness of breath, pleuritic pain, Heme/lymph: No swollen glands GI: No abdominal pain, POSITIVE nausea, POSITIVE vomiting, POSITIVE diarrhea : No dysuria, frequency, urgency, hematuria Musculoskeletal: No limb pain, joint pain, back pain, joint swelling or stiffness. Skin: No rashes, pruritus, lumps, lesions. Neuro: No Numbness, tingling, or weakness. Psych: No anxiety Review of systems is otherwise negative unless stated above or in history of present illness. Physical Exam: General/Constitution al: Alert, oriented, cooperative, in no acute distress. Head: norm cephalic, atraumatic Skin: Intact, dry skin Eyes: PERRL, EOMs intact, Conjunctiva pink with no erythema or exudates. No scleral icterus. ENT: No external deformities. Nares patent, mucus membranes moist. Pharynx clear, uvula midline. Neck: Supple, without meningismus. Trachea at midline. No lymphadenopathy. Pulmonary: Clear bilaterally with good chest wall excursion. No rales, rhonchi or wheezing. Cardiac: Regular rate and rhythm, good pulses. Abdomen: Soft, nontender, active bowel sounds. No palpable organomegaly. No rebound or guarding. No CVA tenderness. Genitourinary: Exam deferred. Musculoskeletal: Full range of motion, no deformity. Pulses full and equal. Non-edematous. Neurological: Cranial nerves II through XII are grossly intact, no focal findings identified. Psychiatric: Appropriate mood and affect. Calm. Active Problems Problems Shoulder pain (719.41) (M25.519) Shoulder strain, right, initial encounter (840.9) (S46.911A) Upper respiratory infection, acute (465.9) (J06.9) Allergies Medication No Known Drug Allergies Recorded By: Thania Santana; 06/06/2020 3:53:15 PM Current Meds Medication NameInstruction Naproxen 500 MG Oral TabletTake 1 tablet twice daily as needed Return to School/Work Patient Name: TAZ MCKEON : 2000 Today's date: 03/09/2021 Urgent Care Visit Location: [place] Description of circumstances for missed work. Off Work beginnin03/09/2021, may return on 03/10/2021 Signatures Electronically signed by : April Raymundo APRN-JACIEL; Mar 09 2021 3:40PM EST (Author) Normal [employer] CORONAVIRUS 2019 BY PCRon SARS-CoV-2 (COVID-19) RNA RAMONA+probe Ql (Unsp spec) Not detected Normal Not Detected [facility] Comment on above: Result Comment: . This assay is designed to detect the N, ORF1ab and/or S genes of SARS-CoV-2 via nucleic acid amplification. A Negative (NOT DETECTED) result does not preclude 2019-nCoV infection since the adequacy of sample collection and/or low viral burden may result in presence of viral nucleic acids below the clinical sensitivity of this test method. Negative (NOT DETECTED) result should not be used as the sole basis for treatment or other patient management decisions. Rather negative results should be combined with clinical observations, patient history, and epidemiological information to make patient management decisions. Fact sheet for providers: https://www.fda.gov/media/987002/download Fact sheet for patients: https://www.fda.gov/media/389562/download This test has received FDA Emergency Use Authorization (EUA) and has been verified by [facility] ([facility]). This test is only authorized for the duration of time that circumstances exist to justify the authorization of the emergency use of in vitro diagnostic tests for the detection of SARS-CoV-2 virus and/or diagnosis of COVID-19 infection under section 564(b)(1) of the Act, 21 U.S.C. 360bbb-3(b)(1), unless the authorization is terminated or revoked sooner. [facility] is certified under CLIA-88 as qualified to perform high complexity testing. Testing is performed in the [facility] laboratories located at [address] [place] [address]. Performed By: #### C OV19 #### [place] [address] CORONAVIRUS 2019 BY PCRon DATE OF SYMPTOM ONSET [YYYYMMDD]? [id number] Normal [facility] Comment on above: Performed By: #### C OV19 #### [place] [address] EMPLOYED IN HEALTHCARE? Unknown Normal [facility] Comment on above: Performed By: #### C OV19 #### [place] [address] HOSPITALIZED (OR PLANNED TO BE ADMITTED)? No Normal [facility] Comment on above: Performed By: #### C OV19 #### [place] [id number] [place] [address] ICU? No Normal [facility] Comment on above: Performed By: #### C OV19 #### [facility] [address] [place] [address] RESIDENT IN CONGREGATE CARE SETTING? Unknown Normal [facility] Comment on above: Performed By: #### C OV19 #### [facility] [address] [place] [address] SARS-CoV-2 (COVID-19) Ab IA Ql Unknown Normal [facility] Comment on above: Performed By: #### C OV19 #### [facility] [address] [place] [address] SYMPTOMATIC DEFINED BY CDC? Yes Normal [facility] Comment on above: Performed By: #### C OV19 #### [facility] [address] [place] [address] Lab Specimen Source Nasal, Nasopharyngeal Normal [facility] Comment on above: Performed By: #### C OV19 #### [facility] [address] [place] [address] SHOULDER, CMPLT, MIN 2 VIEWS on 06-06-2020 SHOULDER, CMPLT, MIN 2 VIEWS Patient Name: TAZ MCKEON STUDY: SHOULDER, CMPLT, MIN 2 VIEWS; Right; 06/06/2020 4:12 pm INDICATION: pain. COMPARISON: None. ACCESSION NUMBER(S): [id number] ORDERING CLINICIAN: RACHELL PICKARD FINDINGS: Four views of the right shoulder. Normal bone mineralization. No visible acute fractures or dislocations. The joint spaces are maintained. No periosteal reaction or cortical erosive changes. The soft tissues appear unremarkable. IMPRESSION: No visible acute fractures or dislocations. Electronically signed by: ANTIONE VARGAS MD [facility] Vital Signs Date Time Vital Sign Value Performing Clinician Facility 04-26-2024 14:210400 Blood Pressure Location Melanie Marshall [facility] 04-26-2024 14:21040 Body temperature 97.88 [degF] Melanie Marshall [facility] 04-26-2024 14:21-0400 Diastolic blood pressure 75 mm[Hg] Melanie Krafter [facility] 04-26-2024 14:21-0400 Heart rate 43 /min Melanie Krafter [facility] 04-26-2024 14:21-0400 SaO2% (BldA) [Mass fraction] 98 % Melanie Krafter [facility] 04-26-2024 14:21-0400 Systolic blood pressure 110 mm[Hg] Melanie Krafter [facility] 03-12-2024 10:06-0400 Blood Pressure Location MARII TOLEDO [facility] 03-12-2024 10:06-0400 Body temperature 98.24 [degF] WYATT TOLEDO [facility] 03-12-2024 10:06-0400 Diastolic blood pressure 78 mm[Hg] MARII TOLEDO [facility] 03-12-2024 10:06-0400 Heart rate 50 /min MARII TOLEDO [facility] 03-12-2024 10:06-0400 Respiratory rate 18 /min MARII TOLEDO [facility] 03-12-2024 10:06-0400 SaO2% (BldA) [Mass fraction] 99 % MARII TOLEDO [facility] 03-12-2024 10:06-0400 Systolic blood pressure 108 mm[Hg] MARII TOLEDO [facility] 08-13-2023 14:00-0500 Body height 170.18 cm Blue Hernandez Other [employer] Other 08-13-2023 14:00-0500 Body mass index (BMI) [Ratio] 25.68 kg/m2 Blue Hernandez Other [employer] Other 08-13-2023 14:00-0500 Body weight 74.39 kg Blue Hernandez Other [employer] Other 08-13-2023 14:00-0500 Diastolic blood pressure 69 mm[Hg] Blue Hernandez Other [employer] Other 08-13-2023 14:00-0500 Systolic blood pressure 108 mm[Hg] Blue Hernandez Other [employer] Other 05-19-2021 19:32-0400 Body temperature 98.6 [degF] [facility] Work Phone: 05-19-2021 19:32-0400 Body weight 65.77 kg [facility] Work Phone: 05-19-2021 19:32-0400 Diastolic blood pressure 77 mm[Hg] [facility] Work Phone: 05-19-2021 19:32-0400 Heart rate 66 /min [employer] [facility] Work Phone: 05-19-2021 19:32-0400 Respiratory rate 16 /min [facility] Work Phone: 05-19-2021 19:32-0400 SaO2% (BldA) [Mass fraction] 98 % [facility] Work Phone: 05-19-2021 19:32-0400 Systolic blood pressure 133 mm[Hg] [facility] Work Phone: 08-04-2020 21:24-0500 BMI (Body Mass Index) 24.28 kg/m2 Rachell Neeraj [facility] Work Phone: 08-04-2020 21:24-0500 Body Temperature 97.4 [degF] Rachell Neeraj [facility] Work Phone: 08-04-2020 21:24-0500 Body weight 70.31 kg Rachellorlin Pickard [facility] Work Phone: 08-04-2020 21:24-0500 BP Diastolic 104 mm[Hg] Rachell Ne[facility] Work Phone: 08-04-2020 21:24-0500 BP Systolic 150 mm[Hg] Rachell Neeraj [facility] Work Phone: 08-04-2020 21:24-0500 BSA (Body Surface Area) 1.81 m2 Rachellorlin Pickard [facility] Work Phone: 08-04-2020 21:24-0500 Height 170.18 cm Rachell Pickard [facility] Work Phone: 08-04-2020 21:24-0500 Pulse (Heart Rate) 77 /min Rachellorlin Pickard [facility] Work Phone: 08-04-2020 21:24-0500 Pulse Oximetry 98 % Rachell Pickard [facility] Work Phone: 08-04-2020 21:24-0500 Respiratory Rate 12 /min Rachell Neeraj [facility] Work Phone: Encounters Encounter Date Encounter Type Care Provider Facility Start: 04-26-2024 End: 04-26-2024 ambulatory Melanie Marshall Facility:[facility] Start: 04-26-2024 End: 04-26-2024 Patient encounter procedure Melanie Marshall [facility] Start: 03-12-2024 End: 03-12-2024 ambulatory PA-C MARII TOLEDO Facility:[facility] Start: 03-12-2024 End: 03-12-2024 Lab Drop off MARII TOLEDO [facility] Start: 03-12-2024 End: 03-12-2024 ambulatory PA-C MARII BONETIZ Facility:[facility] Start: 03-12-2024 End: 03-12-2024 Patient encounter procedure MARII BONETIZ [facility] Start: 02-24-2024 End: 02-25-2024 Pre-admission assessment VICTOR HUGO NASCIMENTO [facility] Start: 12-18-2023 End: 03-21-2024 ambulatory MELONY ALVARADO Facility:[facility] Start: 11-17-2023 End: 11-17-2023 ambulatory MARITO SHAMMO Facility:[facility] Start: 09-30-2023 End: 09-30-2023 ambulatory Blue Hernandez Other [facility] [employer] Other Start: 09-30-2023 Office outpatient visit 15 minutes [facility] Start: 09-17-2023 End: 09-17-2023 ambulatory Marito T Shammo Facility:[facility] Start: 08-18-2023 End: 08-18-2023 ambulatory Blue Hernandez Other [employer] Other Start: 08-18-2023 Telephone encounter Blue Lopez [facility] Start: 08-13-2023 End: 08-13-2023 Patient encounter procedure ROENTGENOLOGIST-BC Marito Shammo Work Phone: [facility] Work Phone: Start: 08-13-2023 End: 08-13-2023 ambulatory ROENTGENOLOGIST-BC Marito T Shammo Work Phone: [facility] Work Phone: Start: 08-13-2023 Office outpatient new 30 minutes Blue [facility] Start: 07-24-2023 ambulatory MELONY ALVARADO Facility:[facility] Start: 07-04-2021 End: 07-04-2021 Subsequent hospital visit by physician Jamel Santa DO [facility] Phone[facility] Start: 07-02-2021 End: 07-02-2021 Subsequent hospital visit by physician Jamel Santa DO Work Phone[facility] Start: 06-25-2021 End: 06-25-2021 Subsequent hospital visit by physician Jamel Santa DO Work Phone[facility] Start: 06-04-2021 End: 06-04-2021 Subsequent hospital visit by physician Jamel Santa DO Work Phone: [facility] Comment on above: Arrived Start: 05-19-2021 End: 05-19-2021 Emergency department patient visit [facility] Emergency Dept Comment on above: Contusion of left he el, initial encounter (Primary Dx) Start: 08-04-2020 Patient encounter procedure Rachell Pick[facility] Work Phone: Start: 06-06-2020 Patient encounter procedure Rachell [facility] Work Phone: Procedures Date Procedure Procedure Detail Performing Clinician Start: 05-19-2021 Radex ankle complete minimum 3 views Rosa Gusman PA-C Work Phone: Extraction of wisdom tooth Lang NASCIMENTO Procedure on elbow VICTOR HUGO HENSON Tonsillectomy and adenoidectomy VICTOR HUGO NASCIMENTO Plan of Treatment Date Care Activity Detail Author Start: 05-23-2021 Influenza vaccination Flu vaccine (# 1) [facility] Work Phone: Start: 10-03-2020 DTaP/Tdap/Td vaccine (4 - Td or Tdap) DTaP/Tdap/Td vaccine (4 - Td or Tdap) [facility] Work Phone: Start: 10-03-2020 DTaP/Tdap/Td vaccine (7 - Td or Tdap) DTaP/Tdap/Td vaccine (7 - Td or Tdap) [facility] Work Phone: Start: 05-26-2014 HPV vaccine (2 - Mal e 3-dose series) HPV vaccine (2 - Male 3-dose series) [facility] Work Phone: Start: 2014 HIV screening HIV screen [facility] Work Phone: Start: 2011 COVID-19 Vaccine (1) COVID-19 Vaccin e (1) [facility] Work Phone: Start: 01-02-2007 Varicella vaccine (2 of 2 - 2-dose childhood series) Varicella vaccine (2 of 2 - 2-dose childhood series) [facility] Work Phone: Start: 1999 Hepatitis C screening Hepatitis C sc reen [facility] Work Phone: End: 06-04-2021 Mri any jt lower extrem w/o contrast matrl MRI LOWER EXTREMITY LEFT W JT WO CONTRAST Imaging Routine Once for 1 Occurrences starting 06/04/2021 until 06/04/2021 [facility] Work Phone: Comment on above: Once for 1 Occurrenc es starting 06/04/2021 until 06/04/2021 Mri any jt lower ext rem w/o contrast matrl MRI LOWER EXTREMITY LEFT W JT WO CONTRAST Imaging Routine 06/04/2021 11:23 AM EDT [facility] Work Phone: Immunizations Immunization Date Immunization Notes Care Provider Fa cility 08-29-2021 SARS-CoV-2 (COVID-19 ) Ad26 vaccine, recombinant MARII TOLEDO [facility] 03-07-2021 SARS-CoV-2 (COVID-19 ) Ad26 vaccine, recombinant MARII TOLEDO [facility] Payers Date Payer Category Payer Self-pay 2022 Medicaid [id number] 2022 Medicaid [id number] 2021 Unknown [place]ZANNE O [facility] [place][id number] 2021-Present [phone] [address] [place] [address] [id number] 2000 Unknown [id number] 2000 Unknown [id number] 1999 Unknown [id number] 2000 Unknown [id number] 2000 Unknown [id number] Unknown [id number] Unknown [id number] Social History Date Type Detail Facility Assertion [facility] (finding[facility] Work Phone: Start: 05-19-2021 End: 04-26-2024 Tobacco smoking status NHIS Never smoker [facility] Start: 05-19-2021 End: 06-14-2021 Tobacco use and exposure Never used [facility] Start: 05-19-2021 End: 06-14-2021 Alcohol intake Ex-drinker (finding) [facility] Work Phone: Start: 2000 Sex Assigned At Not on file S [facility] Work Phone: Exposure to SARS-CoV -2 (event) Not sure [facility] Start: 2000 Sex Assigned At Male S [employer] Work Phone: Sex Assigned At [facility] Tobacco smoking status No Smokin g Status Entered [facility] Tobacco smoking status Never [facility] Functional Status Date Assessment Result Facility 04-26-2024 Functional Status N/A [facility] 03-12-2024 Functional Status N/A [facility] NEGATED: Highlighted row Functional performance Functional status health issues are not documented [facility] Phone: Mental Status Date Assessment Result Facility NEGATED: Highlighted row Cognitive function [Interpretation] Cognitive status health issues are not documented [facility] Phone: Clinical Notes 05-19-2021 to 04-26-2024 Note Date & Type Note Facility 04-26-2024 Hospital Discharge instructions Patient Education 04/26/2024 14:37:22 Hemorrhoids, [id number]-ns-Icbe Hemorrhoids Hemorrhoids are swollen veins that may develop: In the butt (rectum). These are called internal hemorrhoids. Around the opening of the butt (anus). These are called external hemorrhoids. Hemorrhoids can cause pain, itching, or bleeding. Most of the time, they do not cause serious problems. They usually get better with diet changes, lifestyle changes, and other home treatments. What are the causes? This condition may be caused by: Having trouble pooping (constipation). Pushing hard (straining) to poop. Watery poop (diarrhea). . Being very overweight (obese). Sitting for long periods of time. Heavy lifting or other activity that causes you to strain. Anal sex. Riding a bike for a long period of time. What are the signs or symptoms? Symptoms of this condition include: Pain. Itching or soreness in the butt. Bleeding from the butt. Leaking poop. Swelling in the area. One or more lumps around the opening of your butt. How is this diagnosed? A doctor can often diagnose this condition by looking at the affected area. The doctor may also: Do an exam that involves feeling the area with a gloved hand (digital rectal exam). Examine the area inside your butt using a small tube (anoscope). Order blood tests. This may be done if you have lost a lot of blood. Have you get a test that involves looking inside the colon using a flexible tube with a camera on the end (sigmoidoscopy or colonoscopy). How is this treated? This condition can usually be treated at home. Your doctor may tell you to change what you eat, make lifestyle changes, or try home treatments. If these do not help, procedures can be done to remove the hemorrhoids or make them smaller. These may involve: Placing rubber bands at the base of the hemorrhoids to cut off their blood supply. Injecting medicine into the hemorrhoids to shrink them. Shining a type of light energy onto the hemorrhoids to cause them to fall off. Doing surgery to remove the hemorrhoids or cut off their blood supply. Follow these instructions at home: Eating and drinking Eat foods that have a lot of fiber in them. These include whole grains, beans, nuts, fruits, and vegetables. Ask your doctor about taking products that have added fiber (fibersupplements). Reduce the amount of fat in your diet. You can do this by: ?Eating low-fat dairy products. ?Eating less red meat. ?Avoiding processed foods. Drink enough fluid to keep your pee (urine) pale yellow. Managing pain and swelling Take a warm-water bath (sitz bath) for 20 minutes to ease pain. Do this 3 4 times a day. You may do this in a bathtub or using a portable sitz bath that fits over the toilet. If told, put ice on the painful area. It may be helpful to use ice between your warm baths. ?Put ice in a plastic bag. ?Place a towel between your skin and the bag. ?Leave the ice on for 20 minutes, 2 3 times a day. General instructions Take shre-tnh-kxakmvy and prescription medicines only as told by your doctor. ?Medicated creams and medicines may be used as told. Exercise often. Ask your doctor how much and what kind of exercise is best for you. Go to the bathroom when you have the urge to poop. Do not wait. Avoid pushing too hard when you poop. Keep your butt dry and clean. Use wet toilet paper or moist towelettes after pooping. Do not sit on the toilet for a long time. Keep all follow-up visits as told by your doctor. This is important. Contact a doctor if you: Have pain and swelling that do not get better with treatment or medicine. Have trouble pooping. Cannot poop. Have pain or swelling outside the area of the hemorrhoids. Get help right away if you have: Bleeding that will not stop. Summary Hemorrhoids are swollen veins in the butt or around the opening of the butt. They can cause pain, itching, or bleeding. Eat foods that have a lot of fiber in them. These include whole grains, beans, nuts, fruits, and vegetables. Take a warm-water bath (sitz bath) for 20 minutes to ease pain. Do this 3 4 times a day. This information is not intended to replace advice given to you by your health care provider. Make sure you discuss any questions you have with your health care provider. Document Revised: 03/20/2022 Document Reviewed: 03/20/2022 [employer] Patient Education 2022 [employer]. 04/26/2024 14:37:18 Constipation, Adult, Nytd-au-Gbke Constipation, Adult Constipation is when a person has trouble pooping (having a bowel movement). When you have this condition, you may poop fewer than 3 times a week. Your poop (stool) may also be dry, hard, or bigger than normal. Follow these instructions at home: Eating and drinking Eat foods that have a lot of fiber, such as: ?Fresh fruits and vegetables. ?Whole grains. ?Beans. Eat less of foods that are low in fiber and high in fat and sugar, such as: ?Samoan fries. ?Hamburgers. ?Cookies. ?Candy. ?Soda. Drink enough fluid to keep your pee (urine) pale yellow. General instructions Exercise regularly or as told by your doctor. Try to do 150 minutes of exercise each week. Go to the restroom when you feel like you need to poop. Do not hold it in. Take gcss-wsi-jlarclj and prescription medicines only as told by your doctor. These include any fiber supplements. When you poop: ?Do deep breathing while relaxing your lower belly (abdomen). ?Relax your pelvic floor. The pelvic floor is a group of muscles that support the rectum, bladder, and intestines (as well as the uterus in women). Watch your condition for any changes. Tell your doctor if you notice any. Keep all follow-up visits as told by your doctor. This is important. Contact a doctor if: You have pain that gets worse. You have a fever. You have not pooped for 4 days. You vomit. You are not hungry. You lose weight. You are bleeding from the opening of the butt (anus). You have thin, pencil-like poop. Get help right away if: You have a fever, and your symptoms suddenly get worse. You leak poop or have blood in your poop. Your belly feels hard or bigger than normal (bloated). You have very bad belly pain. You feel dizzy or you faint. Summary Constipation is when a person poops fewer than 3 times a week, has trouble pooping, or has poop that is dry, hard, or bigger than normal. Eat foods that have a lot of fiber. Drink enough fluid to keep your pee (urine) pale yellow. Take bnfe-vys-ygjwqcx and prescription medicines only as told by your doctor. These include any fiber supplements. This information is not intended to replace advice given to you by your health care provider. Make sure you discuss any questions you have with your health care provider. Document Revised: 07/26/2020 Document Reviewed: 07/26/2020 [employer] Patient Education 2022 [employer]. [facility] 04-26-2024 Note Patient Education Gastroenterology Hemorrhoids Hemorrhoids are swollen veins that may develop: ? In the butt (rectum). These are called internal hemorrhoids. ? Around the opening of the butt (anus). These are called external hemorrhoids. Hemorrhoids can cause pain, itching, or bleeding. Most of the time, they do not cause serious problems. They usually get better with diet changes, lifestyle changes, and other home treatments. What are the causes? This condition may be caused by: ? Having trouble pooping (constipation). ? Pushing hard (straining) to poop. ? Watery poop (diarrhea). ? . ? Being very overweight (obese). ? Sitting for long periods of time. ? Heavy lifting or other activity that causes you to strain. ? Anal sex. ? Riding a bike for a long period of time. What are the signs or symptoms? Symptoms of this condition include: ? Pain. ? Itching or soreness in the butt. ? Bleeding from the butt. ? Leaking poop. ? Swelling in the area. ? One or more lumps around the opening of your butt. How is this diagnosed? A doctor can often diagnose this condition by looking at the affected area. The doctor may also: ? Do an exam that involves feeling the area with a gloved hand (digital rectal exam). ? Examine the area inside your butt using a small tube (anoscope). ? Order blood tests. This may be done if you have lost a lot of blood. ? Have you get a test that involves looking inside the colon using a flexible tube with a camera on the end (sigmoidoscopy or colonoscopy). How is this treated? This condition can usually be treated at home. Your doctor may tell you to change what you eat, make lifestyle changes, or try home treatments. If these do not help, procedures can be done to remove the hemorrhoids or make them smaller. These may involve: ? Placing rubber bands at the base of the hemorrhoids to cut off their blood supply. ? Injecting medicine into the hemorrhoids to shrink them. ? Shining a type of light energy onto the hemorrhoids to cause them to fall off. ? Doing surgery to remove the hemorrhoids or cut off their blood supply. Follow these instructions at home: Eating and drinking ? Eat foods that have a lot of fiber in them. These include whole grains, beans, nuts, fruits, and vegetables. ? Ask your doctor about taking products that have added fiber (fibersupplements). ? Reduce the amount of fat in your diet. You can do this by: ? Eating low-fat dairy products. ? Eating less red meat. ? Avoiding processed foods. ? Drink enough fluid to keep your pee (urine) pale yellow. Managing pain and swelling ? Take a warm-water bath (sitz bath) for 20 minutes to ease pain. Do this 3?4 times a day. You may do this in a bathtub or using a portable sitz bath that fits over the toilet. ? If told, put ice on the painful area. It may be helpful to use ice between your warm baths. ? Put ice in a plastic bag. ? Place a towel between your skin and the bag. ? Leave the ice on for 20 minutes, 2?3 times a day. General instructions ? Take njlm-yyu-cyibgmn and prescription medicines only as told by your doctor. ? Medicated creams and medicines may be used as told. ? Exercise often. Ask your doctor how much and what kind of exercise is best for you. ? Go to the bathroom when you have the urge to poop. Do not wait. ? Avoid pushing too hard when you poop. ? Keep your butt dry and clean. Use wet toilet paper or moist towelettes after pooping. ? Do not sit on the toilet for a long time. ? Keep all follow-up visits as told by your doctor. This is important. Contact a doctor if you: ? Have pain and swelling that do not get better with treatment or medicine. ? Have trouble pooping. ? Cannot poop. ? Have pain or swelling outside the area of the hemorrhoids. Get help right away if you have: ? Bleeding that will not stop. Summary ? Hemorrhoids are swollen veins in the butt or around the opening of the butt. ? They can cause pain, itching, or bleeding. ? Eat foods that have a lot of fiber in them. These include whole grains, beans, nuts, fruits, and vegetables. ? Take a warm-water bath (sitz bath) for 20 minutes to ease pain. Do this 3?4 times a day. This information is not intended to replace advice given to you by your health care provider. Make sure you discuss any questions you have with your health care provider. Document Revised: 03/20/2022 Document Reviewed: 03/20/2022 [employer] Patient Education ? 2022 [employer] Constipation, Adult Constipation is when a person has trouble pooping (having a bowel movement). When you have this condition, you may poop fewer than 3 times a week. Your poop (stool) may also be dry, hard, or bigger than normal. Follow these instructions at home: Eating and drinking ? Eat foods that have a (more content not included)... [facility] 03-14-2024 Note Microbiology PROCEDURE: Strep Screen Culture [R1] SOURCE: Throat BODY SITE: COLLECTED DATE/TIME: 03/12/2024 11:00 EDT RECEIVED DATE/TIME: 03/12/2024 11:56 EDT START DATE/TIME: 03/12/2024 11:56 EDT FREE TEXT SOURCE: MARII TOLEDO PA-C, PA-C, FRANCISCO FINAL REPORTS Final Report [] Verified Date/Time: 03/14/2024 10:11 EDT Streptococcus Group A screen negative Performing Locations R1: [facility], [address] [place] [address], [id number] [place] [address], [facility] Comment on above: Performed By: #### [id number] #### [facility] [address] [place] [id number] 03-14-2024 Note Microbiology PROCEDURE: Strep Screen Culture [R1] SOURCE: Throat BODY SITE: COLLECTED DATE/TIME: 03/12/2024 11:00 EDT RECEIVED DATE/TIME: 03/12/2024 11:56 EDT START DATE/TIME: 03/12/2024 11:56 EDT FREE TEXT SOURCE: MARII TOLEDO PA-C, PA-C, FRANCISCO FINAL REPORTS Final Report [] Verified Date/Time: 03/14/2024 10:11 EDT Streptococcus Group A screen negative Performing Locations R1: This test was performed at: [facility], [address] [place] [address], [id number] [place] [address], [facility] Comment on above: Performed By: #### [id number] #### [facility] [address] [place] [id number] 03-12-2024 Hospital Discharge instructions Patient Education 03/12/2024 12:52:53 COVID-19 COVID-19 COVID-19, or coronavirus disease 2019, is an infection that is caused by a new (novel) coronavirus called SARS-CoV-2. COVID-19 can cause many symptoms. In some people, the virus may not cause any symptoms. In others, it may cause mild or severe symptoms. Some people with severe infection develop severe disease. What are the causes? This illness is caused by a virus. The virus may be in the air as tiny specks of fluid (aerosols) or droplets, or it may be on surfaces. You may catch the virus by: Breathing in droplets from an infected person. Droplets can be spread by a person breathing, speaking, singing, coughing, or sneezing. Touching something, like a table or a doorknob, that has virus on it (is contaminated) and then touching your mouth, nose, or eyes. What increases the risk? Risk for infection: You are more likely to get infected with the COVID-19 virus if: You are within 6 ft (1.8 m) of a person with COVID-19 for 15 minutes or longer. You are providing care for a person who is infected with COVID-19. You are in close personal contact with other people. Close personal contact includes hugging, kissing, or sharing eating or drinking utensils. Risk for serious illness caused by COVID-19: You are more likely to get seriously ill from the COVID-19 virus if: You have cancer. You have a long-term (chronic) disease, such as: ?Chronic lung disease. This includes pulmonary embolism, chronic obstructive pulmonary disease, and cystic fibrosis. ?Long-term disease that lowers your body's ability to fight infection (immunocompromise). ?Serious cardiac conditions, such as heart failure, coronary artery disease, or cardiomyopathy. ?Diabetes. ?Chronic kidney disease. ?Liver diseases. These include cirrhosis, nonalcoholic fatty liver disease, alcoholic liver disease, or autoimmune hepatitis. You have obesity. You are or were recently . You have sickle cell disease. What are the signs or symptoms? Symptoms of this condition can range from mild to severe. Symptoms may appear any time from 2 to 14 days after being exposed to the virus. They include: Fever or chills. Shortness of breath or trouble breathing. Feeling tired or very tired. Headaches, body aches, or muscle aches. Runny or stuffy nose, sneezing, coughing, or sore throat. New loss of taste or smell. This is rare. Some people may also have stomach problems, such as nausea, vomiting, or diarrhea. Other people may not have any symptoms of COVID-19. How is this diagnosed? This condition may be diagnosed by testing samples to check for the COVID-19 virus. The most common tests are the PCR test and the antigen test. Tests may be done in the lab or at home. They include: Using a swab to take a sample of fluid from the back of your nose and throat (nasopharyngeal fluid), from your nose, or from your throat. Testing a sample of saliva from your mouth. Testing a sample of coughed-up mucus from your lungs (sputum). How is this treated? Treatment for COVID-19 infection depends on the severity of the condition. Mild symptoms can be managed at home with rest, fluids, and fufr-dbq-hyykxho medicines. Serious symptoms may be treated in a hospital intensive care unit (ICU). Treatment in the ICU may include: ?Supplemental oxygen. Extra oxygen is given through a tube in the nose, a face mask, or a ward. ?Medicines. These may include: ?Antivirals, such as monoclonal antibodies. These help your body fight off certain viruses that can cause disease. ?Anti-inflammatories, such as corticosteroids. These reduce inflammation and suppress the immune system. ?Antithrombotics. These prevent or treat blood clots, if they develop. ?Convalescent plasma. This helps boost your immune system, if you have an underlying immunosuppressive condition or are getting immunosuppressive treatments. ?Prone positioning. This means you will lie on your stomach. This helps oxygen to get into your lungs. ?Infection control measures. If you are at risk for more serious illness caused by COVID-19, your health care provider may prescribe two long-acting monoclonal antibodies, given together every 6 months. How is this prevented? To protect yourself: Use preventive medicine (pre-exposure prophylaxis). You may get pre-exposure prophylaxis if you have moderate or severe immunocompromise. Get vaccinated. Anyone 6 months old or older who meets guidelines can get a COVID-19 vaccine or vaccine series. This includes people who are or making breast milk (lactating). Get an added dose of COVID-19 vaccine after your first vaccine or vaccine series if you have moderate to severe immunocompromise. This applies if you have had a solid organ transplant or have been diagnosed with an immunocompromising condition. ?You should get the added dose 4 weeks after you got the first COVID-19 vaccine or vaccine series. ?If you get an mRNA vaccine, you will need a 3-dose primary series. ?If you get the J&J/Gordon vaccine, you will need a 2-dose primary series, with the second dose being an mRNA vaccine. Talk to your health care provider about getting experimental monoclonal antibodies. This treatment is approved under emergency use authorization to prevent severe illness before or after being exposed to the COVID-19 virus. You may be given monoclonal antibodies if: ?You have moderate or severe immunocompromise. This includes treatments that lower your immune response. People with immunocompromise may not develop protection against COVID-19 when they are vaccinated. ?You cannot be vaccinated. You may not get a vaccine if you have a severe allergic reaction to the vaccine or its components. ?You are not fully vaccinated. ?You are in a facility where COVID-19 is present and: ?Are in close contact with a person who is infected with the COVID-19 virus. ?Are at high risk of being exposed to the COVID-19 virus. ?You are at risk of illness from new variants of the COVID-19 virus. To protect others: If you have symptoms of COVID-19, take steps to prevent the virus from spreading to others. Stay home. Leave your house only to get medical care. Do not use public transit, if possible. Do not travel while you are sick. Wash your hands often with soap and water for at least 20 seconds. If soap and water are not available, use alcohol-based hand strategy execution consultant. Make sure that all people in your household wash their hands well and often. Cough or sneeze into a tissue or your sleeve or elbow. Do not cough or sneeze into your hand or into the air. Where to find more information Centers for Disease Control and Prevention: www.cdc.gov/coronavirus World Health Organization: www.who.int/health-topics/coronav irus Get help right away if: You have trouble breathing. You have pain or pressure in your chest. You are confused. You have bluish lips and fingernails. You have trouble waking from sleep. You have symptoms that get worse. These symptoms may be an emergency. Get help right away. Call 911. Do not wait to see if the symptoms will go away. Do not drive yourself to the hospital. Summary COVID-19 is an infection that is caused by a new coronavirus. Sometimes, there are no symptoms. Other times, symptoms range from mild to severe. Some people with a severe COVID-19 infection develop severe disease. The virus that causes COVID-19 can spread from person to person through droplets or aerosols from breathing, speaking, singing, coughing, or sneezing. Mild symptoms of COVID-19 can be managed at home with rest, fluids, and roik-yro-iepasyz medicines. This information is not intended to replace advice given to you by your health care provider. Make sure you discuss any questions you have with your health care provider. Document Revised: 08/29/2022 Document Reviewed: 08/29/2022 [employer] Patient Education 2022 [employer]. Follow Up Care 03/12/2024 09:07:31 With:NONE, XXXX Address: [phone] When: Unknown [facility] 03-12-2024 Evaluation + Plan note Diagnostic Tests PendingStrep Screen Culture 03/12/24 [facility] 03-12-2024 Note Infectious Disease COVID-19 COVID-19, or coronavirus disease 2019, is an infection that is caused by a new (novel) coronavirus called SARS-CoV-2. COVID-19 can cause many symptoms. In some people, the virus may not cause any symptoms. In others, it may cause mild or severe symptoms. Some people with severe infection develop severe disease. What are the causes? This illness is caused by a virus. The virus may be in the air as tiny specks of fluid (aerosols) or droplets, or it may be on surfaces. You may catch the virus by: ? Breathing in droplets from an infected person. Droplets can be spread by a person breathing, speaking, singing, coughing, or sneezing. ? Touching something, like a table or a doorknob, that has virus on it (is contaminated) and then touching your mouth, nose, or eyes. What increases the risk? Risk for infection: You are more likely to get infected with the COVID-19 virus if: ? You are within 6 ft (1.8 m) of a person with COVID-19 for 15 minutes or longer. ? You are providing care for a person who is infected with COVID-19. ? You are in close personal contact with other people. Close personal contact includes hugging, kissing, or sharing eating or drinking utensils. Risk for serious illness caused by COVID-19: You are more likely to get seriously ill from the COVID-19 virus if: ? You have cancer. ? You have a long-term (chronic) disease, such as: ? Chronic lung disease. This includes pulmonary embolism, chronic obstructive pulmonary disease, and cystic fibrosis. ? Long-term disease that lowers your body's ability to fight infection (immunocompromise). ? Serious cardiac conditions, such as heart failure, coronary artery disease, or cardiomyopathy. ? Diabetes. ? Chronic kidney disease. ? Liver diseases. These include cirrhosis, nonalcoholic fatty liver disease, alcoholic liver disease, or autoimmune hepatitis. ? You have obesity. ? You are or were recently . ? You have sickle cell disease. What are the signs or symptoms? Symptoms of this condition can range from mild to severe. Symptoms may appear any time from 2 to 14 days after being exposed to the virus. They include: ? Fever or chills. ? Shortness of breath or trouble breathing. ? Feeling tired or very tired. ? Headaches, body aches, or muscle aches. ? Runny or stuffy nose, sneezing, coughing, or sore throat. ? New loss of taste or smell. This is rare. Some people may also have stomach problems, such as nausea, vomiting, or diarrhea. Other people may not have any symptoms of COVID-19. How is this diagnosed? This condition may be diagnosed by testing samples to check for the COVID-19 virus. The most common tests are the PCR test and the antigen test. Tests may be done in the lab or at home. They include: ? Using a swab to take a sample of fluid from the back of your nose and throat (nasopharyngeal fluid), from your nose, or from your throat. ? Testing a sample of saliva from your mouth. ? Testing a sample of coughed-up mucus from your lungs (sputum). How is this treated? Treatment for COVID-19 infection depends on the severity of the condition. ? Mild symptoms can be managed at home with rest, fluids, and fbnm-tah-nfviusl medicines. ? Serious symptoms may be treated in a hospital intensive care unit (ICU). Treatment in the ICU may include: ? Supplemental oxygen. Extra oxygen is given through a tube in the nose, a face mask, or a ward. ? Medicines. These may include: ? Antivirals, such as monoclonal antibodies. These help your body fight off certain viruses that can cause disease. ? Anti-inflammatories, such as corticosteroids. These reduce inflammation and suppress the immune system. ? Antithrombotics. These prevent or treat blood clots, if they develop. ? Convalescent plasma. This helps boost your immune system, if you have an underlying immunosuppressive condition or are getting immunosuppressive treatments. ? Prone positioning. This means you will lie on your stomach. This helps oxygen to get into your lungs. ? Infection control measures. If you are at risk for more serious illness caused by COVID-19, your health care provider may prescribe two long-acting monoclonal antibodies, given together every 6 months. How is this prevented? To protect yourself: ? Use preventive medicine (pre-exposure prophylaxis). You may get pre-exposure prophylaxis if you have moderate or severe immunocompromise. ? Get vaccinated. Anyone 6 months old or older who meets guidelines can get a COVID-19 vaccine or vaccine series. This includes people who are or making breast milk (lactating). ? Get an added dose of COVID-19 vaccine after your first vaccine or vaccine series if you have moderate to severe immunocompromise. This applies if you have had a solid organ transplant or have been diagnosed with an immunocompromising condition. ? You should (more content not included)... [facility] 09-30-2023 Evaluation note Encounter Date Diagnosis Assessment Notes Sep, Elevated bilirubin (ICD-10 - R17) Patient labs were normal except bilirubin and liver enzymes Patient could possibly have Gilbert's syndrome RTO 1 year with labs [facility] Other 11-22-2023 Evaluation note* Encounter Date Diagnosis Assessment Notes Treatment Notes Treatment Clinical Notes Jul, Elevated bilirubin (ICD-10 - R17) WILL PROCEED WITH ADDITIONAL LAB WORK. PATIENT ADVISED TO AVOID OR LIMIT THE AMOUNT OF GREASY/FATTY FOOD ALONG WITH PROCESSED FOODS. PATIENT NORMALLY EATS BURGERS/FIRES/PIZZ A ROLLS ETC. STATES HE DOES NOT EAT ANY VEGETABLES. PATIENT ADVISED TO TRY SMOOTHIES TO TRY AND HELP GET MORE FRUITS AND VEGETABLES IN HIS DIET. [facility] Other 08-28-2021 Hospital Discharge instructions* Instructions* Alexander Mustafa APRN - JACIEL - 05/19/2021 Images from the original note were not included. 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 It is your employer's responsibility to determine if restrictions can be accommodated. Today's Date: 05/19/21 Patient Name: Taz Mckeon : 2000 Employee may return to work no restrictions on (Date): NA Employee may return to work with the following restrictions on (Date): 05/20/21 [] No bending [] No twisting/turning [] No squatting [] No climbing [] No prolonged sitting [] Standing and walking as tolerated, frequent sitting until [] No use of __ hand/arm/shoulder 05/24/21 [] No pushing greater than __ pounds [] No pulling greater than __ pounds [] No lifting greater than __ pounds [] No reaching above shoulder height [] Do not operate safety sensitive machinery [] Keep bandage/splint clean and dry Other Restrictions/Comments: __ ED Provider Signature: Alexander 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 certified provider. If follow-up care is needed please call one of the [facility] locations below. Freddie Art: [phone] [address], [address], [place] [address] Green: [phone] [address] [place] [address] Priyank: [phone] [place] [address] NEOMED: [phone] [address], [address], [place] [address] Romano: [phone], [place] [address] * Attachments The following attachments cannot be sent through Care Everywhere. * Contusion (Fijian) * Foot Pain (Fijian) [facility] Work Phone: Evaluation + Plan note No data available for this section [facility] Diagnosis Contusion of left heel, initial encounter- Primary documented in this encounter [facility] Work Phone: Evaluation noteNo assessment information available [facility] Work Phone: [facility]No [facility] Other History general Narrative - Reported* Type Description Date Surgical History wisdom teeth extract Surgical History tonsillectomy and adenoidectomy Surgical History ULNER NERVE SURGERY- RIGHT ARM Hospitalization History SEE ABOVE [facility] Other Hospital Discharge instructions No data available for this section [facility] No data available for this section [facility] Summary Purpose Family History No Family History Records FoundNo Family History Records FoundNo Family History Records FoundNo Family History Records Found No data available for this section No data available for this section No data available for this section No Family History Records FoundNo Family History Records Found No data available for this section No Family History Records Found Advance Directives No Advanced Directives Records Found Advance Directive Response Recorded Date/ Time Advance Directives No July 2:38pm Chief Complaint and Reason for Visit Chief Complaint R17 Additional Source Comments (unrecognized sect ion and content) No Status Records FoundNo Status Records FoundNo Status Records FoundNo Status Records FoundNo Status Records FoundNo Status Records FoundNo Status Records Found INFORMATION SOURCE (unrecogn ized section and content) DATE CREATED AUTHOR 03/10/2021 [facility] DATE CREATED AUTHOR AUTHOR'S ORGANIZ ATION 03/10/2021 [employer] DATE CREATED AUTHOR AUTHOR'S ORGANIZ ATION 01/17/2022 [facility] DATE CREATED AUTHOR AUTHOR'S ORGANIZ ATION 09/23/2023 [facility] DATE CREATED AUTHOR AUTHOR'S ORGANIZ ATION 03/14/2024 [facility] DATE CREATED AUTHOR AUTHOR'S ORGANIZ ATION 03/25/[address] [facility] DATE CREATED AUTHOR AUTHOR'S ORGANIZ ATION 04/28/2024 [facility] Reason for Visit (unrecogniz ed section and content) Reason Comments Ankle Pain Left Scheduled Active and Recently Administ ered Medications (unrecognized section and content) Medication Order 05/17/2021 05/18/2021 05/19/2021 ibuprofen (ADVIL;MOTRIN) tablet 600 mg (COMPLETED) 600 mg, Oral, ONCE, On 05/19/21 at 2030, For 1 dose, Do not crush or break. 2040 (Given - Provid er: Brandon Giron RN) Care Teams (unrecognized sec tion and content) Team Status: Active Member Role Status Dates [facility] Primary Care Provider Active Team Status: Inactive Member Role Status Dates [facility] Primary Care Provider Active Blue Hernandez APRN Attending Provider Active Goals (unrecognized section and content) Goals may be documented in a n alternate section FOR RECORDS PERTAINING TO PATIENTS WHO ARE OR HAVE BEEN ENROLLED IN A CHEMICAL DEPENDENCY/SUBSTANCEABUSE PROGRAM, SOME INFORMATION MAY BE OMITTED. This clinical summary was aggregated from multiple sources. Caution should be exercised in using it in the provision of clinical care. This summary normalizes information from multiple sources, and as a consequence, information in this document may materially change the coding, format and clinical context of patient data. In addition, data may be omitted in some cases. CLINICAL DECISIONS SHOULD BE BASED ON THE PRIMARY CLINICAL RECORDS. [employer] provides no warranty or guarantee of the accuracy or completeness of information in this document.
--- NOTE | 2024-04-28 13:03 | ED_ITS ---
<Statement entered by Hal Johnson MD - 04/28/24 18:49> This documentation has been reviewed and approved. Chart was sent to my inbox for administrative and group management purposes. I was the attending physicians working during the patients hospital course. The patient was seen and managed independently by the MLP. I did not personally see or evaluate this patient, nor was I involved in the patient medical decision making process or plans of care. Pt was dispositioned by the MLP with complete independence and I was not involved in planning, and am reviewing this chart at a later date, at a point where changing the pts disposition and treatment would not be possible. I was available for consultation should the MLP request during this patients ED stay. HPI - Abdominal Pain General Chief Complaint: Abdominal Pain Stated Complaint: BLOOD IN STOOL/ ABDOMIANL PAIN Time Seen by Provider: 04/28/24 13:02 Source: patient Mode of arrival: walk-in Limitations: no limitations History of Present Illness HPI narrative: 24-year-old male presents to the emergency department with complaint of abdominal pain. Has had chronic problems with his gastrointestinal tract. States he normally only moves his bowels about 2?3 times a week. Over this past week, has had increased abdominal discomfort, bloating especially when he is trying to lift something at work. Over the past couple days, he has also noted bright red blood when he wipes. Not sure it is from his chronic constipation. His GI provider cannot see him right away, so patient presented here for further evaluation. Locating abdominal pain to the upper abdominal region. Describes as a pressure. Denies any nausea, vomiting, rectal pain, fevers, chills, prior abdominal surgeries. Quality:?As above Severity:?Moderate Timing:?As above, waxing and waning Context: Normal setting and activity? Modifying factors:?None Associated symptoms: As above Related Data Home Medications ?Medication ?Instructions ?Recorded ?Confirmed No Known Home Medications 04/28/24 04/28/24 Previous Rx's ?Medication ?Instructions ?Recorded polyethylene glycol 3350 17 17 g PO DAILY 7 days #119 grams 04/28/24 gram/dose oral powder (Miralax) Allergies Allergy/AdvReac Type Severity Reaction Status Date / Time No Known Drug Allergies Allergy Verified 04/28/24 12:50 Review of Systems ROS Constitutional Denies: fever or chills Cardiovascular Denies: chest pain or shortness of breath with exertion Respiratory Denies: shortness of breath Gastrointestinal Reports: abdominal pain, constipation, bloating, painful bowel movements and other (BRB when wiping); Denies: nausea, vomiting, diarrhea or rectal pain Genitourinary Denies: painful urination or urinary frequency Musculoskeletal Denies: back pain [facility] Medical History (Updated 04/28/24 @ 15:56 by JYOTSNA Suresh) 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) Exam Constitutional Vital Signs, click to edit/add: Last Vital Signs Temp 98.4 F 04/28/24 12:44 Pulse 64 04/28/24 12:44 Resp 16 04/28/24 12:44 BP 140/73 04/28/24 12:44 Pulse Ox 98 04/28/24 12:44 O2 Del Method Room Air 04/28/24 12:44 Documenting provider has reviewed patient's vital signs: yes Common normals: no apparent distress, oriented x3 and alert General appearance: well developed HENMT Common normals: normocephalic and head/scalp atraumatic Head and scalp: normocephalic and atraumatic Eye Common normals: conjunctivae normal Conjunctiva: conjunctiva(e) normal Respiratory Common normals: normal respiratory effort and clear to auscultation bilaterally Effort & inspection: able to speak in complete sentences Auscultation: clear to auscultation bilaterally Cardio Common normals: regular rate, regular rhythm and no murmurs Rate: regular rate Rhythm: regular rhythm GI Common normals: soft to palpation Inspection: normal to inspection; no abdominal distension Auscultation: normoactive bowel sounds Palpation: soft and tender (generalized, favor epigastric region); no guarding and not rigid Common normals: no CVA tenderness Bladder/kidney exam: no CVA tenderness Back & Pelvis Common normals: no CVA tenderness Neuro Common normals: oriented x3, moves all extremities and no focal motor deficits Sensorium/orientation: alert Psych Common normals: mental status grossly normal, thought process normal and cooperative Thought process: normal thought process Course Vital Signs Vital signs: Vital Signs Temperature 98.4 F 04/28/24 12:44 Pulse Rate 64 04/28/24 12:44 Respiratory Rate 16 04/28/24 12:44 Blood Pressure 140/73 04/28/24 12:44 Pulse Oximetry 98 04/28/24 12:44 Oxygen Delivery Method Room Air 04/28/24 12:44 Temperature 98.4 F 04/28/24 12:44 Pulse Rate 64 04/28/24 12:44 Respiratory Rate 16 04/28/24 12:44 Blood Pressure 140/73 04/28/24 12:44 Pulse Oximetry 98 04/28/24 12:44 Oxygen Delivery Method Room Air 04/28/24 12:44 MDM - Abdominal Pain MDM Narrative Medical decision making narrative: This is a pleasant 24-year-old male presenting to the emergency department with complaint of abdominal pain, bloating, bright red blood with wiping. Has had ongoing abdominal problems for which she has a gastroenterology specialist. Patient states he has Gilbert's syndrome, only moves his bowels about twice a week. When he does, sometimes he has to strain and they are painful. He has noted some increased abdominal distention and pain especially when he is going to lift something at work this past week. Denies any fever, chills, rectal pain. On arrival, afebrile, vital signs are stable. Exam, nontoxic, well-appearing patient in no distress. Heart regular rate and rhythm. Lung sounds clear and equal bilaterally. He complains of generalized abdominal tenderness with increased tenderness in the epigastric region only. No rebound or guarding present. No CVA tenderness. Labs revealed no leukocytosis, anemia, thrombocytopenia, electrolyte imbalance, renal impairment. His bilirubin was a little elevated 2.9, similar to prior. No other remarkable findings with LFTs, lipase. Urinalysis unremarkable. CT abd/pelvis imaging, per radiologist reveals empty proximal, mid, and majority of distal colon with suspected slightly edematous wall thickening, mild colitis versus lack of distention. He does have stool noted in the sigmoid colon and rectal vault. Favor nonspecific abdominal pain, chronic constipation, bright red rectal bleeding Anemia less likely based on lab testing Diverticulitis less likely based on imaging Disposition ? The patient was discharged. Plan: Patient will be discharged to home. Condition at time of disposition: stable He will be started on a bowel regimen that includes MiraLAX for his chronic constipation. 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 Advised to follow up with primary provider. Advised to return for any worsening and/or development of new, concerning signs or symptoms PLEASE NOTE: Portions of the medical record may have been produced using electronic station supervisor and may contain errors with respect to translation of words which may not have been identified prior to finalization of the chart. Lab Data Labs: Lab Results 04/28/24 04/28/24 Range/Units 13:15 13:20 WBC 3.4 L (4.0-11.0) 10^3/uL RBC 5.28 (4.70-6.10) 10^6/uL Hgb 15.3 (14.0-18.0) g/dL Hct 44.6 (42.0-54.0) % MCV 84.5 (80.0-94.0) fL MCH 29.0 (25.9-34.0) pg MCHC 34.3 (29.9-35.2) g/dL RDW 12.6 (11.0-15.0) % Plt Count 227 (150-450) 10^3/uL MPV 9.8 (9.5-13.5) fL Neut % (Auto) 60.2 (43.0-75.0) % Lymph % (Auto) 27.8 (20.5-60.0) % [place] % (Auto) 10.5 (1.7-12.0) % Eos % (Auto) 0.6 L (0.9-7.0) % Baso % (Auto) 0.6 (0.2-2.0) % Neut # (Auto) 2.1 (1.4-6.5) 10^3/uL Lymph # (Auto) 1.0 L (1.2-3.8) 10^3/uL [place] # (Auto) 0.4 (0.3-0.8) 10^3/uL Eos # (Auto) 0.0 (0.0-0.7) 10^3/uL Baso # (Auto) 0.0 (0.0-0.1) 10^3/uL Abs Immat Gran (auto) 0.01 (0.00-0.03) 10^3/uL Imm/Tot Granulo (auto) 0.3 (0.0-0.5) % Sodium 139 (136-145) mmol/L Potassium 3.3 L (3.5-5.1) mmol/L Chloride 102 (98-107) mmol/L Carbon Dioxide 29.2 (21.0-32.0) mmol/L Anion Gap 11.1 BUN 11.0 (7.0-18.0) mg/dL Creatinine 0.83 (0.70-1.30) mg/dL Est GFR ( Amer) >60 (>=60) Est GFR (Non-Af Amer) >60 (>=60) BUN/Creatinine Ratio 13.3 Glucose 86 (74-106) mg/dL Calcium 9.0 (8.5-10.1) mg/dL Magnesium 2.1 (1.8-2.4) mg/dL Total Bilirubin 2.9 H (0.2-1.0) mg/dL AST 22 (15-37) U/L ALT 25 (16-63) U/L Alkaline Phosphatase 110 (46-116) U/L Total Protein 7.4 (6.4-8.2) g/dL Albumin 4.5 (3.4-5.0) g/dL Globulin 2.9 g/dL Albumin/Globulin Ratio 1.6 Lipase 25.0 (16.0-77.0) U/L Urine Color Lt. yellow (YELLOW) Urine Clarity Clear (CLEAR) Urine pH 8.0 (5.0-9.0) Ur Specific [place] 1.015 (1.005-1.025) Urine Protein Negative (NEG/TRACE) mg/dL Urine Glucose (UA) Negative (NEGATIVE) mg/dL Urine Ketones Negative (NEGATIVE) mg/dL Urine Occult Blood Negative (NEGATIVE) Urine Nitrite Negative (NEGATIVE) Urine Bilirubin Negative (NEGATIVE) Urine Urobilinogen 1.0 (0.2-1.0) EU/dL Ur Leukocyte Esterase Negative (NEGATIVE) Urine RBC 0-2 (0-2) #/HPF Urine WBC 0-2 A (NONE SEEN) #/HPF Ur Squamous Epith Cells None seen (NONE/RARE) #/LPF Urine Crystals None seen (None Seen) #/HPF Urine Bacteria None seen (NONE SEEN) #/HPF Urine Casts None seen (NONE SEEN) #/LPF Urine Mucus None seen (NONE SEEN) Imaging Data CT scan - abdomen: Attestation: I have reviewed the pertinent imaging results. Radiologist's impression: ITS Impressions Abdomen/Pelvis CT 04/28/24 13:15 IMPRESSION: 1. Empty proximal, mid, and majority of distal colon with suspected slightly edematous wall thickening; mild colitis versus lack of distention. 2. Otherwise unremarkable abdomen and pelvis. Electronically authenticated by: MARIAN PETERS Date: 04/28/2024 14:42 Discharge Plan Discharge Stand Alone Forms: Work/School Release, Portal Instructions Chief Complaint: Abdominal Pain Clinical Impression: Abdominal bloating, Bright red rectal bleeding, Chronic constipation Abdominal pain Qualifiers: Abdominal location: upper abdomen, unspecified Qualified Code(s): R10.10 - Upper abdominal pain, unspecified Patient Disposition: Home, Self-Care Time of Disposition Decision: 15:56 Condition: Good Mode of Transportation: Private Vehicle Prescriptions / Home Meds: New polyethylene glycol 3350 [Miralax] 17 gram/dose powder 17 g PO DAILY 7 Days Qty: 119 0RF No Action No Known Home Medications Print Language: Lebanese Instructions: Constipation (ED), Rectal Bleeding (ED), Acute Abdominal Pain (ED) Referrals: Marito Quiñones NP [Physician] - 1 week Discharge Date/Time: 04/28/24 16:04
--- NOTE | 2024-04-28 13:15 | CT_ITS ---
The [address] [address] Patient Name: MIRIAM MCKEON MRN: [id number] date: 2000 Sex: M Assigned Patient Location: ER Current Patient Location: ER Accession/Order Number: [id number] Exam Date: 04/28/2024 13:35 Report Date: 04/28/2024 14:42 At the request of: MATHIEU ALCAZAR Procedure: CT abdomen pelvis w con EXAMINATION: CT abdomen pelvis w con HISTORY: abd pain, distention ; blood in stool COMPARISON: No relevant comparison available. TECHNIQUE: Axial, Coronal, and Sagittal images were obtained without and/or with IV contrast as indicated by examination type. Dose reduction techniques were achieved by using automated exposure control and/or adjustment of mA and/or kV according to patient size and/or use of iterative reconstruction technique. FINDINGS: LUNG BASES: No visible pulmonary or pleural disease. LIVER: No enlargement, atrophy, suspicious density, or significant focal lesion. BILIARY: No dilatation or calcification. PANCREAS: No lesion, fluid collection, or abnormal duct dilatation. SPLEEN: No enlargement or focal lesion. ADRENALS: No mass or enlargement. KIDNEYS: No mass, obstruction, or calcification. BOWEL/MESENTERY: Slightly edematous wall thickening of colon throughout the majority of its length. Stool within distal sigmoid colon and rectal vault with normal appearing vogel. Unremarkable stomach and small bowel. AORTA/VASCULAR: No aneurysm or dissection. RETROPERITONEUM: No mass or adenopathy. LYMPH NODES: No adenopathy. URINARY BLADDER: No visible focal wall thickening, lesion, or calculus. PELVIC ORGANS: No visible mass. Pelvic organs appropriate for patient age. ABDOMINAL WALL: No mass or hernia. BONES: No bony lesion or fracture. OTHER: Negative. CT/CT abdomen pelvis w con IMPRESSION: 1. Empty proximal, mid, and majority of distal colon with suspected slightly edematous wall thickening; mild colitis versus lack of distention. 2. Otherwise unremarkable abdomen and pelvis. Electronically authenticated by: MARIAN PETERS Date: 04/28/2024 14:42
[2024-04-28] MEDS: 0.9 % SODIUM CHLORIDE 1,000 ML 999 ML IV (13:27)
[2024-04-28 13:33] LABS: Basophils Percent Auto 0.6 % (0.2-2.0); Eosinophils Percent Auto 0.6 % (0.9-7.0); Hematocrit 44.6 % (42.0-54.0); Hemoglobin 15.3 g/dL (14.0-18.0); Immature Granulocytes Abs Auto 0.01 10^3/uL (0.00-0.03); Immature Granulocytes Pct Auto 0.3 % (0.0-0.5); Lymphocytes Percent Auto 27.8 % (20.5-60.0); Mean Corpuscular HGB Conc 34.3 g/dL (29.9-35.2); Mean Corpuscular Volume 84.5 fL (80.0-94.0); Mean Platelet Volume 9.8 fL (9.5-13.5); Monocytes Absolute Auto 0.4 10^3/uL (0.3-0.8); Monocytes Percent Auto 10.5 % (1.7-12.0); Neutrophils Absolute Auto 2.1 10^3/uL (1.4-6.5); Neutrophils Percent Auto 60.2 % (43.0-75.0); Platelet Count 227 10^3/uL (150-450); Red Blood Count 5.28 10^6/uL (4.70-6.10); Red Cell Distribution Width 12.6 % (11.0-15.0); White Blood Count 3.4 10^3/uL (4.0-11.0)
[2024-04-28 13:34] LABS: Bilirubin Urine NEGATIVE (NEGATIVE); Blood Urine NEGATIVE (NEGATIVE); Clarity Urine CLEAR (CLEAR); Color Urine LT. YELLOW (YELLOW); Glucose Urine UA NEGATIVE (NEGATIVE); Ketones Urine NEGATIVE (NEGATIVE); Leukocyte Esterase Urine NEGATIVE (NEGATIVE); Nitrite Urine NEGATIVE (NEGATIVE); Protein Urine NEGATIVE (NEG/TRACE); Specific Gravity Urine 1.015 (1.005-1.025)
[2024-04-28 13:42] LABS: Magnesium 2.1 mg/dL (1.8-2.4)
[2024-04-28 13:44] LABS: Bacteria Urine NONE SEEN #/HPF (NONE SEEN); Cast Seen? NONE SEEN #/LPF (NONE SEEN); Crystals Seen? None Seen #/HPF (None Seen); Mucus Urine NONE SEEN (NONE SEEN); RBC Urine 0-2 #/HPF (0-2); Squamous Epithelial Cell Urine NONE SEEN #/LPF (NONE/RARE); WBC Urine 0-2 #/HPF (NONE SEEN)
[2024-04-28 13:49] LABS: Alanine Aminotransferase 25 U/L (16-63); Albumin Globulin Ratio 1.6; Albumin Level 4.5 g/dL (3.4-5.0); Alkaline Phosphatase 110 U/L (46-116); Anion Gap 11.1; Aspartate Amino Transferase 22 U/L (15-37); BUN Creatinine Ratio 13.3; Bilirubin Total 2.9 mg/dL (0.2-1.0); Carbon Dioxide 29.2 mmol/L (21.0-32.0); Chloride 102 mmol/L (98-107); Estimated GFR (African America >60 (>=60); Estimated GFR (Non-African Ame >60 (>=60); Globulin 2.9 g/dL; Glucose 86 mg/dL (74-106); Potassium 3.3 mmol/L (3.5-5.1); Sodium 139 mmol/L (136-145); Total Protein 7.4 g/dL (6.4-8.2)
[2024-04-28 16:03] VITALS: BP 138/74; PULSE 74; O2SAT 98
== END 2024-04-28 16:04 | disposition home or self-care (01) ==
PROVIDERS: Physician Assistant; Emergency Provider Emergency Medicine
DX: R10.10 Upper abdominal pain, unspecified (principal); K59.09 Other constipation; R14.0 Abdominal distension (gaseous); K62.5 Hemorrhage of anus and rectum
CPT/HCPCS: 36415; 74177; 80053; 81001; 83690; 83735; 85025; 99285; Q9967

== ENCOUNTER 2024-05-14 09:50 | Emergency (ER) | payer OTHER, SELFPAY ==
[2024-05-14 10:05] VITALS: BP 146/89; PULSE 97; TEMP 37.5; O2SAT 97; BMI 26.6
[2024-05-14] MEDS: PREDNISONE 20 MG TABLET 40 MG PO (10:35)
--- NOTE | 2024-05-14 11:13 | ED_ITS ---
HPI - Dental/Oral General Chief complaint: Dental/Oral Stated complaint: MOUTH PAIN, SWELLING Time Seen by Provider: 05/14/24 10:20 Source: patient Mode of arrival: walk-in Limitations: no limitations History of Present Illness HPI Narrative: The patient presenting to us with a upper lip swelling, the patient mentioned that he recently had a dental pain that resolved but he tried coconut oil for pain management according to his friend advised, but he only tried it 2 days ago 1 time by touching it to his upper lip and since then he felt some numbness to his lip as well as swelling The swelling started yesterday and has been the same level since yesterday there is no progression of that to his tongue or any other complaint of lower lip swelling or difficulty swallowing or eating or even breathing or speaking The patient stopped using the coconut oil except for that 1 incident Related Data Previous Rx's ?Medication ?Instructions ?Recorded polyethylene glycol 3350 17 17 g PO DAILY 7 days #119 grams 04/28/24 gram/dose oral powder (Miralax) prednisone 20 mg tablet 40 mg (2 x 20 mg) PO DAILY 5 days 05/14/24 #10 tabs Allergies Allergy/AdvReac Type Severity Reaction Status Date / Time No Known Drug Allergies Allergy Verified 04/28/24 12:50 Review of Systems ROS Status of ROS 10 or more systems reviewed and unremark able except as noted in history and below [facility] Medical History (Updated 05/14/24 @ 10:27 by Theresa Castrejon MD) 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) Exam Narrative Exam Narrative: Nurses notes and vital signs reviewed and patient is not hypoxic. General: Well-appearing and in no apparent distress. Skin: Warm, dry, no pallor noted. No rash. Head: Normocephalic, atraumatic. Neck: Supple, non-tender. Eye: Pupils are equal, round and EOMI. No scleral icterus. Ears, Nose, Mouth, and Throat: There is a mild upper lip swelling there is no compromise of the airway , the patient have patent airway no lower lip swelling there is definite creases in the upper lip with mild swelling ,oral mucosa is moist, no posterior oropharynx erythema, uvula is mid-line Cardiovascular: Regular Rate and Rhythm without murmur, gallop or rub. Respiratory: No accessory muscle use or respiratory distress. Lungs are clear to auscultation, no wheezing, rales or rhonchi Chest Wall: no tenderness Back: No midline thoracic or lumbar vertebral tenderness. No CVA tenderness Musculoskeletal: normal ROM, no calf or popliteal tenderness, no lower extremity edema/swelling GI: Abdomen is soft, non-distended. Normal bowel sounds. No masses appreciated. No tenderness to palpation. No rebound, guarding, or rigidity noted. Neurological: A&O x4. No cranial nerve dysfunction observed. No truncal ataxia. Moves all extremities. Sensation intact. Psychiatric: Cooperative and interactive. Normal mood and affect. Constitutional Vital Signs, click to edit/add: Last Vital Signs Temp 99.5 F 05/14/24 10:05 Pulse 97 H 05/14/24 10:05 Resp 18 05/14/24 10:05 BP 146/89 H 05/14/24 10:05 Pulse Ox 97 05/14/24 10:05 O2 Del Method Room Air 05/14/24 10:05 Course Vital Signs Vital signs: Vital Signs Temperature 99.5 F 05/14/24 10:05 Pulse Rate 97 H 05/14/24 10:05 Respiratory Rate 18 05/14/24 10:05 Blood Pressure 146/89 H 05/14/24 10:05 Pulse Oximetry 97 05/14/24 10:05 Oxygen Delivery Method Room Air 05/14/24 10:05 Temperature 99.5 F 05/14/24 10:05 Pulse Rate 97 H 05/14/24 10:05 Respiratory Rate 18 05/14/24 10:05 Blood Pressure 146/89 H 05/14/24 10:05 Pulse Oximetry 97 05/14/24 10:05 Oxygen Delivery Method Room Air 05/14/24 10:05 MDM - Dental/Oral MDM Narrative Medical decision making narrative: The patient swelling is mild he will be treated right now with prednisone with instruction to take his medication with food Avoiding any coconut oil use for allergic reaction in addition to the fact that he have to come back in case of new symptoms the prednisone be continued for 5 days The patient does not take any other medication regularly The patient is to follow up with primary care physician in next 2-3 days or to return to the emergency department should any of the signs or symptoms worsen or new symptoms develop. The patient agrees with the following Diagnosis and Treatment plan and the patient will be discharged home. Discharge Plan Discharge Stand Alone Forms: Work/School Release, Portal Instructions Chief Complaint: Dental/Oral Clinical Impression: Lip swelling Patient Disposition: Home, Self-Care Time of Disposition Decision: 10:27 Condition: Good Prescriptions / Home Meds: New prednisone 20 mg tablet 40 mg PO DAILY 5 Days Qty: 10 0RF No Action polyethylene glycol 3350 [Miralax] 17 gram/dose powder 17 g PO DAILY 7 Days Qty: 119 0RF Print Language: Norwegian Instructions: Food Allergy (ED) Additional Instructions: please take all meds with food not on empty stomach and monitor your symptoms Referrals: Physician,Non-Staff, [Primary Care Provider] - 1 week Discharge Date/Time: 05/14/24 10:37
== END 2024-05-14 10:37 | disposition home or self-care (01) ==
PROVIDERS: Emergency Provider Emergency Medicine
DX: R22.0 Localized swelling, mass and lump, head (principal)
CPT/HCPCS: 99283; J7512

== ENCOUNTER 2025-05-19 21:09 | Emergency (ER) | payer OTHER, SELFPAY ==
--- OUTSIDE RECORDS SUMMARY | 2024-03-31 06:45 | XMS_ITS ---
Author Organization [facility] es Address [address] [place] [address] Care Team Providers Care Jig Mill Operator Name Role Phone Henrry Regalado Primary Care Provider [phone] REASON FOR VISIT NEW PATIENT DENTAL EXAM-REFERRAL FROM [facility] FOR RCT ON TOOTH #14 Encounters Encounter Location Date Provider Diagnosis [address] [place] [place] [address] 03/31/2024 Henrry Regalado Plan Of Treatment No Information Progress Notes * MIRIAM MCKEON GerriDOB:[birth year] (25 yo M)Acc No.[id number]:03/31/2024 Patient: MIRIAM ASCENCIO Provider: Santana Regalado DDS :2000 A ge:24 Y S ex:Male Date:03/31/2024 Address:[address] [place], [place] [id number] Subjective: * Chief Complaints: * 1 . NEW PATIENT DENTAL EXAM-REFERRAL FROM [facility] FOR RCT ON TOOTH #14. * Medical History: Objective: * Vitals: Assessment: Plan: * Treatment: * Images: * Electronic signature of Alfonso Regalado DDS on 05/19/2025 at 09:28 PM EDT Sign off status: Pending * Provider: Santana Regalado DDS Date: 03/31/2024 Generated for Aydin carcamo/Kely/Lucretia on: 05/19/2025 09:28 PM EDT
--- OUTSIDE RECORDS SUMMARY | 2024-04-09 05:00 | XMS_ITS ---
Author Organization [facility] es Address [address] [place] [address] Care Team Providers Care Power Saw Operator Name Role Phone Henrry Regalado Primary Care Provider [phone] Brittany Reilly [phone] REASON FOR VISIT new pt, est, L lower back pain (LMOM TO R/S-AC) Encounters Encounter Location Date Provider [address] [facility] [facility] [place] [place] [address] 04/09/2024 Brittany Reilly Plan Of Treatment No Information Progress Notes * MIRIAM MCKEON GerriDOB:[birth year] (25 yo M)Acc No.[id number]:04/09/2024 Progress Notes Patient: MIRIAM ASCENCIO Provider: Snatana Galvez :2000 A ge:24 Y S ex:Male Date:04/09/2024 Address:[address] [place], [place] [id number] Pcp:Henrry Regalado Subjective: * Chief Complaints: * 1 . new pt, est, L lower back pain (LMOM TO R/S-AC). * Medical History: Objective: * Vitals: Assessment: Plan: * Treatment: Care Plan: * Problems: * Images: * Electronic signature of Agustín Reilly CNP on 05/19/2025 at 09:27 PM EDT Sign off status: Pending * Provider: Santana Galvez Date: 0 04/09/2024 Generated for Printi ng/Falj/eTransmitting on: 0 05/19/2025 09:27 PM EDT
--- OUTSIDE RECORDS SUMMARY | 2024-07-23 07:00 | XMS_ITS ---
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 Wellness. * Medical History: Objective: * Vitals: Assessment: Plan: * Treatment: Care Plan: * Problems: * Billing Information: * Visit Code: * Procedure Codes: * Electronic signature of Chase Greene NP on 05/19/2025 at 09:28 PM EDT Sign off status: Pending * Provider: SARA Harrison Date: 09/22/2023 Generated for Printi ng/Faxing/eTransmitting on: 0 05/19/2025 09:28 PM EDT
--- OUTSIDE RECORDS SUMMARY | 2025-04-25 06:33 | XMS_ITS | Continuity of Care Document ---
Author Organization [facility] Address [address] [place] [address] Phone Care Team Providers Care Orthotic Technician Name Role Phone Dina Alvares DDS Unavailable Unavailable Allergies, Adverse Reactions, Alerts Substance Reaction Status Criticality No Known Allergies Active No Inform ation Medications Medication Instructions Dosage Effective Dates (start - stop) Status Comments ibuprofen 800 mg tablet take 1 tablet by oral route 3 times every day with food 800 MG - Active Procedures Procedure Date Bitewings Four Films Oral Hygiene Instruction Periodic Oral Eval Estab Patient 2024 Limited Oral Eval Intraoral-periapical 1st Film Bitewig-single Film Oral Hygiene Instruction Oral Hygiene Instruction Limited Oral Eval Oral Hygiene Instruction Limited Oral Eval Oral Hygiene Instruction Comp Oral Eval New/estab Patient 2023 Intraoral-complete Series (bw) Advance Directives Directive Yes / No Effective Date File Name No Information Encounters Encounter Description Practice Location Reason(s) For Visit Diagnoses Date Provider Providers Copied on Encounter [facility], [address] [place] [address], [id number], tel:[phone] Dental Clinic PE (chief complaint) No Information Dia Arroyo. . tel:[phone] [facility], [address] [place] [address], [id number], [place] tel:[phone] Dental Clinic Encounter for screening for dental disorders Dia Arroyo. . tel:[phone] [facility], [address] [place] [address], [id number], [place] tel:[phone] Dental Clinic Encounter for screening for dental disorders Dia Arroyo. . tel:[phone] [facility], [address] [place] [address], [id number], [place] tel:[phone] Dental Clinic er (chief complaint) Encounter for screening for dental disorders Dia Arroyo. . [phone] [facility], [address] [place] [address], [id number], [place] tel:[phone] Dental Clinic dental limited (chief complaint) Encounter for screening for dental disorders Malena Escamillai. [address] [place] [address], [id number], [place]. [phone] [facility], [address] [place] [address], [id number], [place] tel:[phone] Dental Clinic DN (chief complaint) Body mass index [BMI] 23.0-23.9, adultEncounter for screening for dental disorders Dia Vinson. [address] [place] [address], [id number] , [place]. tel:[phone] Family History Family Member Type Diagnosis Age At Onset No Information Payers Payer name Insurance type Covered green party ID Authormarysea tilaine(s) D [employer] [facility] [id number] D Medicaid [facility] [id number] Social History Type Description Quantity Date Captured Comments Alcohol Use Details Unknown Caffeine Use Details Unknown Tobacco Use Status No Information Smoking Status No Information Sex Male Sexual Orientation Straight or heterosexual Gender Identity Male Chief Complaint And Reason For Visit From encounter dated '04/25/2025 10:33'. PE (chief complaint). Description: PE Reason For Referral Reason For Referral No Information Plan Of Treatment Date Type Action Status Goal Depression screening. Due on due Goal RLP. Due on due Goal Influenza vaccine. Due on due Goal Hepatitis C screening. Due o n due Goal Unhealthy drug use screening . Due on due Goal PRAPARE ASSESSMENT. Due on A due Goal Tdap. Due on due Goal Tdap Vaccine. Due on 2024 due Goal Hep A. Due on du e Goal Tdap Vaccine. Due on 2023 due Goal Tdap. Due on due Goal Influenza vaccine. Due on due Goal Hepatitis C screening. Due o n due Goal RLP. Due on due Goal PRAPARE ASSESSMENT. Due on A due Goal Unhealthy drug use screening . Due on due Goal Depression screening. Due on due Goal Influenza vaccine. Due on due Goal Tdap. Due on due Goal Depression screening. Due on due Goal PRAPARE ASSESSMENT. Due on due Goal Unhealthy drug use screening . Due on due Goal RLP. Due on due Goal Hepatitis C screening. Due o n due Goal Tdap Vaccine. Due on 2023 due Goal Tdap. Due on due Goal Unhealthy drug use screening . Due on due Goal PRAPARE ASSESSMENT. Due on due Goal RLP. Due on due Goal Depression screening. Due on due Goal Influenza vaccine. Due on due Goal Hepatitis C screening. Due o n due Goal Tdap Vaccine. Due on 2023 due Goal Dietary manageme nt education, guidance, and counseling completed Appointment Taz Hines BOOKED History Of Present Illness Encounter Date Complaint History Of Prese nt Illness PE PE er er dental limited dental limited DN Functional Status Date Functional Assessmen t No Information Instructions Date Instruction Additional Infor mation Dietary management e ducation, guidance, and counseling Related to Body mass index [BMI] 23.0-23.9, adult Giving encouragement to exercise Related to Body mass index [BMI] 23.0-23.9, adult Assessments Type Assessment Date No Information Patient Care Teams Name Effective Dates (start - stop) Status Members No Information
[2025-05-19 21:17] VITALS: BP 133/67; PULSE 63; TEMP 36.9; O2SAT 98; BMI 26.6
--- OUTSIDE RECORDS SUMMARY | 2025-05-19 21:28 | XMS_ITS | Patient Health Record ---
Author Organization [facility] vices Address [address] [place] [place], [place] [id number] Care Team Providers Care Technical Manager Name Role Phone Santiago Greeneas Primary Care Provider Allergies No Known Allergies Reason For Referral No Information Social History CAGE-AID Questionnaire (2018 Edition) Question Answer Notes Have you ever felt that you ought to cut down on your drinking or drug use? No patient entered data Have people annoyed you by c riticizing your drinking or drug use? No patient entered data Have you ever felt bad or gu ilty about your drinking or drug use? No patient entered data Have you ever had a drink or used drugs first thing in the morning to steady your nerves or to get rid of a hangover? No patient entered data CAGE-AID Score 0 Interpretation Negative PRAPARE Question Answer Notes Date Completed/Updated: 07/22/2023 rhianna nt entered data What is your current housing situation? I have housing patient entered data Are you worried about losing your housing? No patient entered data What is the highest level of school that you have finished? 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 Check all that apply I do not have problems meeting my needs Has lack of transportation k ept you from medical appointments, meetings, work or from getting things needed for daily living? No How often do you see or talk to people that you care about and feel close to? (For example: talking to friends on the phone, visiting friends or family, going to advent or club meetings) 1 or 2 times a week patient entered data How stressed are you? Stress is when someone feels tense, nervous, anxious, or can't sleep at night because their mind is troubled A little bit patient entered data In the past year have you sp ent more than 2 nights in a row in a [place] health [place] facility, long-term, alf center, or juvenile correctional facility? No patient entered data Are you a refugee? No patient en tered data What country are you from? [place] demetrius mckeent entered data Do you feel physically and emotionally safe where you currently live? Yes patient entered data In the past year, have you b een afraid of your partner or ex-partner? No patient entered data PRAPARE Score: 4 Plan Of Treatment No Information Insurance Providers Payer Name Payer Address Payer Phone Subscriber Number Group Number Insured Name Patient Relationship to Insured Coverage Start Date Coverage End Date [facility] [address] [place] [address] [id number] Taz Hines Self - patient is the insured 3 Medicaid [facility] after [employer] [address] [place] [address] [id number] Taz Hines Self - patient is the insured 3 Medical (General) History Medical History History ICD Code Anxiety F41.9 Depression F32.A Surgical History Surgery Date(Month/Year) tonsillectomy and adenoidectomy wisdom teeth extraction right elbow surgery left elbow surgery planned for 09/02/23 Hospitalization History Reason Date(Month/Year) see surgeries
--- OUTSIDE RECORDS SUMMARY | 2025-05-19 21:28 | XMS_ITS | Patient Health Record ---
Author Organization Take the Interview [facility] es Address [address] [place] [address] Care Team Providers Care Immigration Case Manager Name Role Phone Henrry Regalado Primary Care Provider Reason For Referral No Information Plan Of Treatment No Information Insurance Providers Payer Name Payer Address Payer Phone Subscriber Number Group Number Insured Name Patient Relationship to Insured Coverage Start Date Coverage End Date [employer] [place] [address] [place] [address] [id number] MIRIAM MCKEON Self - patient is the insured [address] [facility] [employer] [address] [place] [address] [id number] MIRIAM MCKEON Self - patient is the insured 4
--- OUTSIDE RECORDS SUMMARY | 2025-05-19 21:28 | XMS_ITS | Patient Health Record ---
Author Organization [facility] Address [address] [place] [address] Care Team Providers Care Gis Manager Name Role Phone PCP, NO [facility] Chas Gann Unavailable [phone] Zully Reynoso Unavailable Allergies No Known Allergies Reason For Referral Reason ALLOWED add dx S76.1 12.. to [facility] for review 11/12/2024 Diagnosis 1 Left knee sprain (S8 3.92XA) Referral Organization [facility] Referring Provider First Name Chas Referring Provider Last Name Oneyda Referring Provider Speciality Orthopedic Surgery Referred Organization [facility] Referred Address [address],[address], General Notes Flaquita Fierro 09:17:05 AM > 11/08 can you please add dx, Oscar flynn Lisa 11/09/2024 12:05:48 PM >ok, will need to add quad tear dx to his claim. Vadim flynn Jessika 11/09/2024 12:22:58 PM > faxed note, c9 for add dx S76.112 and medAmado tao Melanie 11/12/2024 02:38:27 PM >Add dx S76.112 to for review, Flaquita Fierro 12/10/2024 10:38:59 AM > dx in allowed/appeal 11/29, Flaquita Fierro 12/23/2024 11:52:43 AM > dx is now allowed on clm.Oscar Lisa 12/24/2024 01:39:13 PM >noted Referral Priority Routine Reason AD 12/[address] [facility] Diagnosis 1 Contusion of left kn ee, initial encounter (S80.02XA) Referral Organization [facility] Referring Provider First Name Chas Referring Provider Last Name [place] Referring Provider Speciality Orthopedic Surgery Referred Organization [facility] Referred Address [address] [place],[address], General Notes Garland Estrada 12/08/2024 07:57:12 AM > Light duty work note, Flaquita Fierro 12/09/2024 09:32:10 AM > faxed note and updated medco Referral Priority Routine Reason APPROVED for PT LT l eg with work hardening program Diagnosis 1 Quadriceps muscle ru pture, left, subsequent encounter (S76.112D) Referral Organization [facility] Referring Provider First Name Chas Referring Provider Last Name [place] Referring Provider Speciality Orthopedic Surgery Referred Organization [facility] Referred Address [address] [place],[address],[place] General Notes Garland Estrada 01/19/2025 12:01:46 PM > Work restrictions. Work hardening [facility], patient already scheduled for evaluation 01/31/25, Flaquita Fierro 01/20/2025 10:06:38 AM > faxed note, [facility]co and c9 for PT, Flaquita Fierro 01/25/2025 09:44:39 AM > rcvd c9 auth for PT, faxed to arianna reina. see attachment Referral Priority Routine Reason AD 03/21 note Diagnosis 1 Quadriceps muscle ru pture, left, subsequent encounter (S76.112D) Referral Organization [facility] Referring Provider First Name Chas Referring Provider Last Name [place] Referring Provider Speciality Orthopedic Surgery Referred Organization [facility] Referred Address [address],[place],[address],[place] General Notes Flaquita Fierro 01:31:34 PM > faxed note and updated medco Referral Priority Routine Reason Ad 05/18 note Diagnosis 1 Quadriceps muscle ru pture, left, subsequent encounter (S76.112D) Referral Organization [facility] Referring Provider First Name Chas Referring Provider Last Name Oneyda Referring Provider Speciality Orthopedic Surgery Referred Organization [facility] Referred Address [address],[facility],[address], General Notes Garland Estrada 05/18/2025 09:02:20 AM > work restrictions, Flaquita Fierro 05/18/2025 02:44:55 PM > faxed note and updated meddc Referral Priority Routine Social History Tobacco Use: Social History Observation Description Date Details (start date - stop date) Never Smoker NA - NA AUDIT-C (Standard) Question Answer Notes Did you have a drink containing alcohol in the p ast year? No Points 0 Interpretation Negative Tobacco Control (Standard) Question Answer Notes Tobacco use: Nonsmoker Problems Problem Type SNOMED Code ICD Code Onset Dates Problem Status W/U Status Risk Notes Problem Contusion of left knee (7473135425852 9109) Contusion of left knee, initial encounter (S80.02XA) Active confirmed Problem Contusion of left knee (7028183251451 9109) Contusion of left knee, subsequent encounter (S80.02XD) Active confirmed Problem Quadriceps muscle rupture, left, subsequent encounter (S76.112D) Active confirmed Problem Quadriceps tendon tear, left, initial encounter (s76.112A) Active confirmed Vital Signs Height 5'7 in 03/21/2025 Weight 165 lbs 03/21/2025 BMI 25.84 03/21/2025 Encounters Encounter Location Date Provider Diagnosis [facility] [address] [place] [address] 05/18/2025 Chas Call Quadriceps muscle rupture, left, subsequent encounter S76.112D [facility] [address] [place] [address] [place] [address] 11/08/2024 Chas Call Quadriceps tendon tear, left, initial encounter s76.112A and Contusion of left knee, initial encounter S80.02XA [facility] [address] [place] [address] 12/08/2024 Zully Reynoso Quadriceps muscle rupture, left, subsequent encounter S76.112D [facility] [address] [place] [address] 01/19/20[facility] Quadriceps muscle rupture, left, subsequent encounter S76.112D [facility] [address] [place] [address] 03/21/2025 Chas Call Quadriceps muscle rupture, left, subsequent encounter S76.112D [facility] [address] [place] [address] 04/12/2025 Chas Call Assessments Encounter Date Diagnosis (ICD Code) Assessment Notes Treatment Notes Treatment Clinical Notes Section Notes 11/08/2024 Contusion of left knee, initial encounter (ICD-10 - S80.02XA) 11/08/2024 Quadriceps tendon tear, left, initial encounter (ICD-10 - s76.112A) 12/08/2024 Quadriceps muscle rupture, left, subsequent encounter (ICD-10 - S76.112D) 01/19/2025 Quadriceps muscle rupture, left, subsequent encounter (ICD-10 - S76.112D) 03/21/2025 Quadriceps muscle rupture, left, subsequent encounter (ICD-10 - S76.112D) 05/18/2025 Quadriceps muscle rupture, left, subsequent encounter (ICD-10 - S76.112D) 05/18/2025 Other Patient is improving. Will change work restrictions to a 60 pound maximum push pull lift. He will follow-up in 2 months to reassess his progress. Import medication 11/08/2024 Other For his left knee work-related injury his partial quadriceps tendon tear continues to be symptomatic. I recommended work restrictions. He will follow-up in 4 weeks to reassess his progress. Import medication 12/08/2024 Other Patient is komal jimenez well after his work-related injury. He is now about 5 months out. I will increase his lifting weight to no more than 30 pounds and keep the rest of the restrictions the same. Will see back in 6 weeks for reevaluation. 01/19/2025 Other Today I am chuy jimenez to increase patient's lift/push/pull weight to 50 pounds and restrict his kneeling still. I would like him to get into a work hardening program and physical therapy to build up his strength for heavy pushing/pulling/l ifting to eventually get back to his full work duties. We will see him back in 2 months for reevaluation, sooner for any new or worsening symptoms. 03/21/2025 Other For his persistent quadriceps pain after his partial quad tendon tear I have recommended Mobic 15 mg daily. We will keep him on his current work restrictions. He will follow-up in 2 months to reassess his progress. Import medication Plan Of Treatment Pending Test Test Name Order Date SCC- PT/OT EVAL AND TREAT 3X/WEEK FOR 6 WEEKS 01/19/2025 Next Appt Details Provider Name:Chas Mary Zhao and, 07/20/2025 09:00:00 AM, [address] [facility] , [address], [place], [address], Insurance Providers Payer Name Payer Address Payer Phone Subscriber Number Group Number Insured Name Patient Relationship to Insured Coverage Start Date Coverage End Date [facility] Mg[facility] [address] [place] [id number] DOI 4 MIRIAM MCKEON Self - patient is the insured 4 Medical (General) History Medical History History ICD Code GI Problems:
--- OUTSIDE RECORDS SUMMARY | 2025-05-19 21:29 | XMS_ITS | Encounter Summary ---
Author Organization [facility] Address [address], [address] [place] [address] Care Team Providers Care Drawing In Hand Name Role Phone Unavailable Primary Care Provider Unavailabl e Reason for Referral * Imaging (Routine) - Closed Specialty Diagnoses / Procedures Referred By Contac t Referred To Contact Radiology Diagnoses Contusion of left knee, initial encounter Sprain of patella, left, initial encounter Procedures MRI KNEE LEFT WO CONTRAST Madonna Agosto APRN - [address] [place] [address] Phone: tel: fax: Referral ID Status Reason Start Date Expiration Date Visits Re quested Visits Authorized [id number] Closed 10/07/2024 10/08/2025 1 1 Encounter Details Date Type Department Care Team (Latest Contact Info) Description 10/08/2024 Transcribe Orders [facility] [address] [place] [address] [id number] Madonna Agosto APRN - [address] [place] [address] Contusion of left knee, initial encounter (Primary Dx); Sprain of patella, left, initial encounter Social History Tobacco Use Types Packs/Day Years Used Date Smoking Tobacco: Never Smokeless Tobacco: Never Alcohol Use Standard Drinks/Week Comments Not Currently 0 (1 standard drink = 0.6 oz pur e alcohol) Sex and Gender Information Value Date Recorded Sex Assigned at Male 06/13/2021 10:32 AM EDT Legal Sex Male 4:54 PM EDT Gender Identity Male 06/13/2021 10:32 AM EDT Sexual Orientation Not on file documented as of this encounter Plan of Treatment Not on file documented as of this encounter Results * MRI KNEE LEFT WO CONTRAST (10/15/2024 11:38 AM EST) Anatomical Region Laterality Modality Thigh, Knee, Leg Magnetic Resona nce 10/15/2024 12:5 5 PM EST Impressions 10/15/2024 1:48 PM EST 1. 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 No meniscal tear. 2. No acute ligamentous injury. 3. Mild inferior patellar tendinosis. 4. Low-grade interstitial tearing of the distal quadriceps tendon. Mild distal quadriceps tendinosis. 5. Small joint effusion. 6. Mild patellofemoral compartment chondromalacia. Narrative 10/15/2024 1:48 PM EST EXAMINATION: MRI OF THE LEFT KNEE WITHOUT [...] the subcutaneous fat along the anterior knee. Procedure Note Lan Zimmerman MD - 10/15/2024 EXAMINATION: MRI OF THE LEFT KNEE WITHOUT CONTRAST, 10/15/2024 11:38 am TECHNIQUE: Multiplanar multisequence MRI of the left knee was performed without the administration of intravenous contrast. COMPARISON: Left knee radiographs from 07/19/2024. HISTORY: ORDERING SYSTEM PROVIDED HISTORY: Contusion of left knee, initialencounter 24-year-old male with left knee contusion. FINDINGS: MENISCI: Degeneration of the periphery of the posterior horn and body ofthe medial meniscus. No discrete medial or lateral meniscus tear. Lateral meniscus demonstrates normal morphology and signal characteristics. CRUCIATE LIGAMENTS: Anterior and posterior cruciate ligaments appear continuous/intact. EXTENSOR MECHANISM: Mild distal quadriceps tendinosis. Low-grade interstitial tearing of the distal quadriceps tendon. Patellarretinacula appear intact. Mild inferior patellar tendinosis. LATERAL COLLATERAL LIGAMENT COMPLEX: Popliteus muscle/tendon, iliotibial band, lateral collateral ligament, and biceps femoris appear intact. MEDIAL COLLATERAL LIGAMENT COMPLEX: Medial collateral ligament complex appears intact. KNEE JOINT: Small joint effusion. Grade 2 patellofemoral compartment chondromalacia. Articular cartilage of the medial and lateral compartments appearsgrossly intact without focal chondral defect. Osseous alignment is normal. No acute fracture or dislocation. BONE MARROW: Bone marrow signal intensity relatively unremarkable. SOFT TISSUES: No sizable Brennan's cyst. Visualized poplitealneurovascular bundle grossly unremarkable. Mild edema in the subcutaneous fat alongthe anterior knee. IMPRESSION: 1. Degeneration in the periphery of the posterior horn and body of themedial meniscus. No meniscal tear. 2. No acute ligamentous injury. 3. Mild inferior patellar tendinosis. 4. Low-grade interstitial tearing of the distal quadriceps tendon. Mild distal quadriceps tendinosis. 5. Small joint effusion. 6. Mild patellofemoral compartment chondromalacia. Madonna Agosto OYSTER GRADER - COMPLIANCE TESTER IMG MRI ORDERABLES Fi nal Result documented in this encounter Visit Diagnoses Diagnosis Contusion of left knee, initial encounter- Primary Sprain of patella, left, initial encounter Contusion of left knee, initial encounter Sprain of patella, left, initial encounter documented in this encounter
--- OUTSIDE RECORDS SUMMARY | 2025-05-19 21:29 | XMS_ITS | CCD ---
Author Organization [facility] Care Team Providers Care Sports Centre Manager Name Role Phone Kristina Bergman Unavailable Unavailable Unavailable Unavailable Unavailable Unavailable Primary Care Provider UnavailBlue De Los Santos Unavailable Nuria, [facility] Marito T Primary Care Provider [phone] SIDDHARTH Hernandez Attending Provider Shamsmith, Marito T Primary Care Unavailable Blue Hernandez Attending Unavailable Blue Hernandez Admitting Unavailable Blue Hernandez Attending Unavailable Blue Hernandez Admitting Unavailable Johnsonmo, Marito T Primary Care Unavailable NONE, XXXX Primary Care Physician Unavailab MELONY Ahuja Referring Unavailable MELONY ALVARADO Attending Unavailable ASTRID ZHOU Attending UnavailASTRID Navas Admitting UnavailASTRID Navas Attending UnavailARPITA RaiAS Referring Unavailable Miki ARORA Attending Unavailable MARII ZHOU Attending Unavailable MARII ZHOU Admitting Unavailable MARII ZHOU Attending Unavailable Melanie Marshall Attending Unavailable Unavailable Primary Care Provider UnavailGarfield Hurt Attending Unavailable TAYLOR LOONEY Attending UnavailTaylor Negrete Attending Unavailable MARIAN CALL Referring Unavailable MARIAN CALL Referring Unavailable MARIAN CALL Referring Unavailable MARIAN CALL Referring Unavailable CALLMARIAN ALMARAZ Referring Unavailable CALLMARIAN ALMARAZ Referring Unavailable MARIAN CALL Referring Unavailable MADONNA AGOSTO Referring Unavailable AGOSTOMADONNA Referring Unavailable MADONNA AGOSTO Referring Unavailable MARIAN CALL Referring Unavailable AGOSTOMADONNA Referring Unavailable CALLMARIAN ALMARAZ Referring Unavailable Kanani DDS, Dina Attending Unavailable Kanani DDS, Dina Unavailable Unavailable Kanani DDS, Dina Unavailable Unavailable Allergies Allergy Classification Reported Allergen(s) Allergy Type Date of Onset Reaction(s) Facility (3 sources) No Known Medication Allergies; Translations: [No Known Medication Allergies] Propensity to adverse reactions (disorder) [facility] Repository Medications Current Medications Medication Drug Class(es) Dates Sig (Normalized) Sig (Original) polyethylene glycol 3350 66403 mg powder for oral solution (1 source) Osmotic Laxative Start: 05-03-2024 take 17 g by mouth once daily Polyethylene Glycol 3350 Active 17 GM PO Daily May 03, 2024 12:00am predniSONE 20 mg oral tablet (20 sources) Start: 06-03-2024 End: 06-08-2024 take 2 tablets by mouth twice daily predniSONE 20 mg Tab 40 mg = 2 tab(s), Oral, BID, X 5 day(s), # 20 tab(s), Refills(s) 0, Pharmacy: [facility]/pharmacy #[id number], 176, cm, 06/03/24 10:11:00 EDT, Height/Length Dosing, 72.9, kg, 06/03/24 10:11:00 EDT, Weight Dosing Start Date: 06/03/24 Stop Date: 06/08/24 Status: Ordered Start: 06-14-2021 predniSONE (DE LTASONE) 10 MG tablet Indications: Contusion of left foot, initial encounter , Contusion of left ankle, initial encounter 6 pills QD x1, 5 pills QD X1, 4 pills QD X1, 3 pills QD X1, 2 pills QD X1, 1 pill QD X1 day, half pill QD X2 day. With full meal. 22 tablet 06/14/2021 Active Zofran ODT 4 mg Tab-Dis (1 source) Start: 11-04-2024 End: 11-07-2024 take 1 tablet by mouth every eight hours as needed for nausea Zofran ODT 4 mg Tab-Dis 4 mg = 1 tab(s), Oral, q8hr, PRN Nausea/Vomiting, X 3 day(s), # 9 tab(s), Refills(s) 0, Pharmacy: [facility]/pharmacy #[id number], 176, cm, 11/04/24 11:14:00 EST, Height/Length Dosing, 75, kg, 11/04/24 11:14:00 EST, Weight Dosing Start Date: 11/04/24 Stop Date: 11/07/24 Status: Ordered Completed/Discontinued Medications Medication Drug Class(es) Dates Sig [...] daily as needed Quantity: 14 Refills: 0 Neeraj GOYAL-C Kristina Start : 06-Jun-2020 Active Problems Active Problems Problem Classification Problem Date Documented Da te Episodic/Chronic Anxiety disorders (9 sources) Anxiety 11-13-2023 Chronic Gastrointestinal hemorrhage (1 source) Hematochezia; Translations: [Melena] 05-03-2024 Episodic Hemorrhoids (1 source) Hemorrhoids; Translations: [Unspecified hemorrhoids] Onset: 04-26-2024 Episodic Intestinal infection (2 sources) Viral enteritis; Translations: [Viral intestinal infection, unspecified] Onset: 11-04-2024 Episodic Mood disorders (9 sources) Depressive disorder 11-13-2023 Chronic Other gastrointestinal disorders (2 sources) Constipation, unspecified; Translations: [Constipation, unspecified] Onset: 04-26-2024 Episodic Other gastrointestinal disorders (1 source) Abdominal bloating; Translations: [Abdominal distension (gaseous)] 05-03-2024 Episodic Other gastrointestinal disorders (1 source) Constipation; Translations: [Constipation, unspecified] 05-03-2024 Episodic Other gastrointestinal disorders (1 source) Abdominal distension (gaseous); Translations: [Flatulence, eructation, and gas pain] 05-03-2024 Episodic Other liver diseases (3 sources) Jaundice; Translations: [Unspecified jaundice] Episodic Other liver diseases (2 sources) Unspecified jaundice Episodic Other nervous system disorders (9 sources) 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 Comment on above: L arm Ulnar Nerve Tr ansposition and fractional lengthening of FCU Other non-traumatic joint disorders (1 source) Shoulder pain; Translations: [Shoulder pain] Episodic Other screening for suspected conditions (not mental disorders or infectious disease) (2 sources) Encounter for screening for dental disorders Onset: 04-22-2025 04-22-2025 Episodic Other upper respiratory infections (2 sources) Acute upper respiratory infection; Translations: [Acute upper respiratory infection, unspecified] Onset: 06-03-2024 Episodic Residual codes; unclassified (1 source) Pain; Translations: [Pain, unspecified] 07-19-2024 Episodic Sprains and strains (7 sources) Shoulder strain; Translations: [Sprain of left knee] Onset: 07-19-2024 10-15-2024 Episodic Superficial injury; contusion (7 sources) Contusion of heel; Translations: [Contusion of left foot, initial encounter] Onset: 10-15-2024 Episodic Unclassified (1 source) Unspecified jaundice; Translations: [Unspecified jaundice] Onset: 09-17-2023 Past or Other Problems Problem Classification Problem Date Documented Da te Episodic/Chronic Residual codes; unclassified (1 source) Pain, unspecified; Translations: [Pain, unspecified] Onset: 07-19-2024 Episodic Unclassified (1 source) PE (chief complaint) Onset: 04-25-2025 Viral infection (1 source) Disease caused by 2019-nCoV; Translations: [COVID-19] Onset: 03-12-2024 NEGATED: Highlighted row has not occurred!Residual codes; unclassified (2 sources) Disease Episodic Results Test Name Value Interpretation Reference Range Facility Family Medicine Office/Clini c Noteon 11-07-2024 Family Medicine Office/Clinic Note Family Medicine Office/Clinic Note Chief Complaint vomiting, diarrhea, abdominal pain [...] with voice recognition software. Occasional wrong-word or ???kxkcl-u-pypy??? substitutions may have occurred due to the [...] of viral gastroenteritis. I discussed to send Malcolm, nausea medication 1 tablet dissolved under the [...] With When Contact Information NONE, XXXX [phone] Additional Instructions: Patient Education Viral Gastroenteritis, Adult [...] (COVID-19) Ad26 vaccine 03/07/2021 Recorded Normal [facility] Comment on above: Result Comment: Elec tronically Signed By: Garfield Pereira PA-C\.br\Date and Time Signed: 11/07/24 08:53 EST Ambulatory Visit Summaryon 0 11-04-2024 Ambulatory Visit Summary Ambulatory Visit Summary TAZ MCKEON :2000 Visit Date:11/04/2024 Ambulatory Visit Instructions Your Diagnosis Viral gastroenteritis, Viral gastroenteritis Your Care Team Attending Physician - Garfield Pereira PA-C Primary Care Physician - NONE, XXXX This [...] Viral gastroenteritis Duration: 3 Days Pickup at [facility]/pharmacy #[id number] Pharmacy Information [facility]/pharmacy #[id number]: [address], [place] [phone] Medications and Immunizations Administered Not Given influenza [...] for choosing us for your care. Normal [facility] Patient Letter FTon 2024 Patient Letter [facility] Patient Letter [facility] [address] [place] [address], [facility] [place] [phone] November 04, 2024 TAZ MCKEON [address] [place] [id number] : 2000 Please excuse TAZ MCKEON from work . Date and/or Time of Absence: From: 11/01/24, 11/02/24, 11/04/24 To: 11/05/24 May return to work on: 11/05/24 Restrictions: None Comments: Please excuse due to an acute illness. Provider Signature: Garfield Pereira PA-C Physician [employer] [address] [place] [address] [facility] MR Knee - left WO contraston 10-15-2024 1. 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 No meniscal tear. 2. No acute ligamentous injury. 3. Mild inferior patellar tendinosis. 4. Low-grade interstitial tearing of the distal quadriceps tendon. Mild distal quadriceps tendinosis. 5. Small joint effusion. 6. Mild patellofemoral compartment chondromalacia. [facility] EXAMINATION: MRI OF THE LEFT KNEE WITHOUT [...] the subcutaneous fat along the anterior knee. [facility] Lan Zimmerman MD - 10/15/2024 EXAMINATION: MRI [...] joint effusion. 6. Mild patellofemoral compartment chondromalacia. [facility] Radiology Study observation (narrative) [facility] MR Knee - left WO contrastOr dered By: Lan Zimmerman on 10-15-2024 [facility] Work Phone: MRI KNEE LEFT WO CONTRASTon 10-15-2024 MRI KNEE LEFT WO CONTRAST EXAMINATION: MRI OF THE LEFT KNEE WITHOUT [...] by: Lan Zimmerman MD 10/15/24 Final result Normal [facility] XR KNEE LEFT (3 VIEWS)on XR KNEE LEFT (3 VIEWS) EXAMINATION: THREE XRAY VIEWS OF THE LEFT KNEE 07/19/2024 12:25 pm COMPARISON: None. HISTORY: ORDERING SYSTEM PROVIDED HISTORY: Pain TECHNOLOGIST PROVIDED HISTORY: SYSTOC ORDER ID:->[id number] FINDINGS: No radiographic evidence of acute fracture or dislocation seen. The joint spaces appear grossly preserved radiographically. No significant joint effusion seen. No radiopaque foreign body seen IMPRESSION: No radiographic evidence of acute osseous abnormality of the left knee seen. Interpreted by: Alexander Hinojosa MD Signed by: Alexander Hinojosa MD 07/21/24 Final result Normal [facility] XR Knee - left 3 Viewson No radiographic evidence of acute osseous abnormality of the left knee seen. [facility] EXAMINATION: THREE XRAY VIEWS OF THE LEFT KNEE 07/19/2024 12:25 pm COMPARISON: None. HISTORY: ORDERING SYSTEM PROVIDED HISTORY: Pain TECHNOLOGIST PROVIDED HISTORY: SYSTOC ORDER ID:->[id number] FINDINGS: No radiographic evidence of acute fracture or dislocation seen. The joint spaces appear grossly preserved radiographically. No significant joint effusion seen. No radiopaque foreign body seen [facility] Alexander Hinojosa MD - 07/21/2024 EXAMINATION: THREE XRAY VIEWS OF THE LEFT KNEE 07/19/2024 12:25 pm COMPARISON: None. HISTORY: ORDERING SYSTEM PROVIDED HISTORY: Pain TECHNOLOGIST PROVIDED HISTORY: SYSTOC ORDER ID:->[id number] FINDINGS: No radiographic evidence of acute fracture or dislocation seen. The joint spaces appear grossly preserved radiographically. No significant joint effusion seen. No radiopaque foreign body seen IMPRESSION: No radiographic evidence of acute osseous abnormality of the left knee seen. [facility] XR Knee - left 3 ViewsOrdere d By: Alexander Hinojosa on 07-21-2024 [facility] Work Phone: XR Knee - left 3 Viewson Radiology Study observation (narrative) [facility] Ambulatory Visit Summaryon 0 06-03-2024 Ambulatory Visit Summary Ambulatory Visit Summary TAZ MCKEON :2000 Visit Date:06/03/2024 Ambulatory Visit Instructions Your Diagnosis Viral URI with cough Acute pharyngitis Your Care Team Attending Physician - PARIS RESENDIZ, MARII Primary Care Physician - NONE, XXXX This Is Your Medications List predniSONE (predniSONE 20 mg Tab) Procedures Performed Extraction of wisdom tooth, Procedure on elbow, Ts and As - Tonsillectomy and adenoidectomy. Discharge Vitals Heart Rate (Peripheral) 76 Respiratory Rate 18 Blood Pressure 118/72 Height 176.0 cm Height 69 in Weight 72.9 kg Weight 160.38 lb BMI 23.53 What to do next You Need to Schedule the Following Appointments Follow Up with NONE, XXXX When: Where: [phone] Medications What How Much When Why Instructions New predniSONE (predniSONE 20 mg Tab) 2 Tablets By Mouth 2 times a day Viral URI with cough Acute pharyngitis Duration: 5 Days Pickup at [facility]/pharmacy #[id number] Pharmacy Information [facility]/pharmacy #[id number]: [address], [place] [phone] Allergies No Known Allergies No Known Medication Allergies Problems Ongoing - Any problem that you are currently receiving treatment for. Anxiety Depression Patient Survey You may receive a survey via text or e-mail asking about your office visit. Please share your experience with us by completing your survey. We appreciate your feedback and thank you for choosing us for your care. Education Materials Pharyngitis Pharyngitis is a sore throat (pharynx). This is when there is redness, pain, and swelling in your throat. Most of the time, this condition gets better on its own. In some cases, you may need medicine. What are the causes? ? An infection from a virus. ? An infection from bacteria. ? Allergies. What increases the risk? ? Being 5?24 years old. ? Being in crowded environments. These include: ? Daycares. ? Schools. ? Dormitories. ? Living in a place with cold temperatures outside. ? Having a weakened disease-fighting (immune) system. What are the signs or symptoms? Symptoms may vary depending on the cause. Common symptoms include: ? Sore throat. ? Tiredness (fatigue). ? Low-grade fever. ? Stuffy nose. ? Cough. ? Headache. Other symptoms may include: ? Glands in the neck (lymph nodes) that are swollen. ? Skin rashes. ? Film on the throat or tonsils. This can be caused by an infection from bacteria. ? Vomiting. ? Red, itchy eyes. ? Loss of appetite. ? Joint pain and muscle aches. ? Tonsils that are temporarily bigger than usual (enlarged). How is this treated? Many times, treatment is not needed. This condition usually gets better in 3?4 days without treatment. If the infection is caused by a bacteria, you may be need to take antibiotics. Follow these instructions at home: Medicines ? Take qnmx-oxw-zjeylxg and prescription medicines only as told by your doctor. ? If you were prescribed an antibiotic medicine, take it as told by your doctor. Do not stop taking the antibiotic even if you start to feel better. ? Use throat lozenges or sprays to soothe your throat as told by your doctor. ? Children can get pharyngitis. Do not give your child aspirin. Managing pain To help with pain, try: ? Sipping warm liquids, such as: ? Broth. ? Herbal tea. ? Warm water. ? Eating or drinking cold or frozen liquids, such as frozen ice pops. ? Rinsing your mouth (gargle) with a salt water mixture 3?4 times a day or as needed. ? To make salt water, dissolve ??1 tsp (3?6 g) of salt in 1 cup (237 mL) of warm water. ? Do not swallow this mixture. ? Sucking on hard candy or throat lozenges. ? Putting a cool-mist humidifier in your bedroom at night to moisten the air. ? Sitting in the bathroom with the door closed for 5?10 minutes while you run hot water in the shower. General instructions ? Do not smoke or use any products that contain nicotine or tobacco. If you need help quitting, ask your doctor. ? Rest as told by your doctor. ? Drink enough fluid to keep your pee (urine) pale yellow. How is this prevented? ? Wash your hands often for at least 20 seconds with soap and water. If soap and water are not available, use hand fruit and vegetable parer. ? Do not touch your eyes, nose, or mouth with unwashed hands. Wash hands after touching these areas. ? Do not share cups or eating utensils. ? Avoid close contact with people who are sick. Contact a doctor if: ? You have large, tender lumps in your neck. ? You have a rash. ? You cough up green, yellow-brown, or bloody spit. Get help right away if: ? You have a stiff neck. ? You drool or cannot swallow liquids. ? You cannot drink or take medicines without vomiting. ? You have ve (more content not included)... Normal [facility] Family Medicine Office/Clini c Noteon 06-03-2024 Family Medicine Office/Clinic Note Family Medicine Office/Clinic Note Chief Complaint sore throat, headache, cough HPI Staff complaints of sore throat Onset: friday Characteristics: cough, chest congestion, sore throat, headache OTC tried:otc pain meds, cough drops History of Present Illness Reviewed and agree with above documented HPI by certified medical technician assistant. Portions of this record may have been created with voice recognition artificial intelligence software, specifically [email or web address], Chat[employer] (ChatAnd) and or Junar. Substitutions may have occurred due to the inherent limitations of voice recognition and artificial intelligence software. Patient is a 24-year-old male who presents to [facility], for congestion, cough, sore throat. Patient states symptoms started on Friday, about 3 to 4 days ago, states sore throat was worse last night, states past 2 days he did test himself twice for COVID-19 with negative results, patient states been taking nhfm-pls-yokfyar Tylenol ibuprofen for sore throat, has been using cough drops, states he does not smoke, vape, has a history of asthma bronchitis, has not been wheezing, feels when he lays supine with the drainage that is when he starts to cough, continues to be nonproductive, states send states he does have a good appetite, when he eats and drinks he has a sense of taste and smell intact, no discomfort or difficulty swallowing. Patient stated no one at home is ill. Patient states no coworkers are ill around him, and denies having any headaches, dizziness, fevers, chills, nausea or vomiting, productive cough, worsening cough, chest pain, shortness of breath, weakness. Review of Systems PHQ Score Initial Depression Screen Score: 0 SCORE Physical Exam Vitals & Measurements HR: 76(Peripheral) RR: 18 BP: 118/72 SpO2: 98% HT: 69 in HT: 176.0 cm WT: 72.9 kg WT: 160.38 lb BMI: 23.53 General: Well developed, well nourished, in no acute distress. Patient does here ill but not septic. No respiratory distress. Answers questions appropriately and in complete sentences, and follows commands appropriately. Head: Normocephalic/atraum atic positive upper respiratory infection. Eyes: Pupils equal, round, and reactive to light. Conjunctivae and sclerae normal. Ears: TMs and bilateral external canals are both within normal limits. Hearing is intact. Nose: No deformity, discharge, inflammation, or lesions Mouth: Mucous membranes moist. Normal oropharynx, and posterior pharynx with postnasal drip erythema without lesions, exudates, or enlarged tonsils. No trismus. No difficulty swallowing. Neck: Neck supple. No masses or palpable cervical nodes. No mastoid tenderness. Lungs: Normal respiratory effort and clear to auscultation throughout. Cardio: regular rate and rhythm, no murmur. Musculoskeletal: Patient is able to move all 4 extremities equally without pain or weakness. Neurologic: Grossly normal Skin: No rashes, ulcerations, or suspicious lesions Lymph Nodes: no lad Mental Status: alert, active Assessment/Plan Patient agrees to swab for rapid strep and influenza, and COVID swab at this time. No breathing treatment or chest imaging are indicated at this time. COVID patient is negative for influenza and rapid strep, verbally understands he will be contacted with a positive throat culture results. 24-year-old male presented to [facility], for viral URI with cough and acute pharyngitis, symptoms started on Friday last week about 3 to 4 days ago, patient did appear ill but not septic, no respiratory distress, difficulty swallowing. Patient was given prescription for prednisone, instructed take gkyd-nfo-mcihwdb ibuprofen Tylenol as needed for any fevers, or pain. Drink plenty water stay hydrated. Given a work excuse note. Follow-up with primary care provider as needed. 1. Viral URI with cough (J06.9: Acute upper respiratory infection, unspecified) See above Ordered: predniSONE, 40 mg = 2 tab(s), Oral, BID, X 5 day(s), # 20 tab(s), Refills(s) 0, [id number], 176, cm, 06/03/24 10:11:00 EDT, Height/Length Dosing, 72.9, kg, 06/03/24 10:11:00 EDT, Weight Dosing 2. Acute pharyngitis (J02.9: Acute pharyngitis, unspecified) See above Ordered: predniSONE, 40 mg = 2 tab(s), Oral, BID, X 5 day(s), # 20 tab(s), Refills(s) 0, [facility]acy: [id number], 176, cm, 06/03/24 10:11:00 EDT, Height/Length Dosing, 72.9, kg, 06/03/24 10:11:00 EDT, Weight Dosing Rapid Strep POC 65050 Strep Screen Culture Orders: Influenza Type A&B POC 90004 Follow-up With When Contact Information NONE, XXXX [phone] Additional Instructions: Patient Education Pharyngitis, Gxpg-bo-Obqg Viral Respiratory Infection, Dagl-Nd-Kbim Problem List/Past Medical History Ongoing Anxiety Depression Historical No qualifying data Procedure/Surgical History Extraction of wisdom tooth, Procedure on elbow, Ts and As - Tonsillectomy and adenoidectomy. Medications predniSONE 20 mg Tab, 40 mg= 2 tab(s) (more content not included)... Normal [facility] Comment on above: Result Comment: Elec tronically Signed By: PARIS RESENDIZ, MARII\.br\Date and Time Signed: 06/03/24 10:39 EDT Patient Letter FTon 2023 Patient Letter [facility] Patient Letter [facility] [address] [place] [address] June 03, 2024 TAZ MCKEON [facility] [address] [id number] : 2000 Please excuse TAZ MCKEON from work . Date and/or Time of Absence: From: 06/03/24 May return to work on: 06/04/24 Restrictions: None Comments: Please excuse due to an acute illness. Provider Signature: Marii Zhou PA-C [address] [place] [address] [place] [address] [facility] Ambulatory Visit Summaryon 0 04-26-2024 Ambulatory Visit Summary Ambulatory Visit Summary TAZ MCKEON :2000 Visit Date:04/26/2024 Ambulatory Visit Instructions Your Diagnosis Constipation in male Hemorrhoid Your Care Team Attending Physician - Rolando PALOMINO, Shannan Primary Care Physician - NONE, XXXX Procedures [...] times a day. General instructions ? Take wsxq-bon-zukccal and prescription medicines only as told by [...] away if (more content not included)... Normal [facility] Family Medicine Office/Clini c Noteon 04-26-2024 Family [...] with voice recognition software. Occasional wrong-word or ?ajmgq-a-mnpr? substitutions may have occurred due to the [...] and forms stool Discussed how the average [place] diet can lead to constipation I suggest adding prune juice - starting with 4 ounces daily and increasing to 6 and 8 until benefit is achieved Increase PO water/fluids Stool softeners have been shown to help in some patients Increasing activity can help improve bowel health f/u 1 month 2. Hemorrhoid (K64.9: Unspecified hemorrhoids) Recommend qsib-zyn-phuyamv Anusol cream package instructions if needed for irritation to the anal opening. Follow-up No qualifying data available Patient Education Hemorrhoids, Fsly-gq-Mbrk Constipation, Adult, Juxr-ux-Ghhn Problem List/Past Medical History Ongoing Anxiety Depression [...] SARS-CoV-2 (COVID-19) Ad26 vaccine 03/07/2021 Recorded Normal [facility] Comment on above: Result Comment: Elec tronically Signed By: Rolando PALOMINO, Shannan\.br\Date and Time Signed: 04/26/24 18:23 EDT Patient Letter FTon 2023 Patient Letter [facility] Patient Letter [facility] [address] [place] [address], [facility] [address] [place] [id number] April 26, 20[address]ON [address] [place] [id number] : 2000 Please excuse TAZ MCKEON from work . Date and/or Time of Absence: From: 04/26/24 To: 04/26/24 May return to work on: 04/27/24 Restrictions: None Comments: Please excuse due to an acute illness. Provider Signature: CANDELARIO Johnson Nurse Practitioner [address] [place] [address] [place] [address] [facility] Coding Summary.on 03-17-2024 Coding Summary. CJUFZmal60FEy1bNl+PG hlYWQ+RH8RWZBjG08mpE HvoR6wU9YTTUmCQgvpLM DRRRkXNlLsgfRlOV8ywH NjZXJu IC8+CV6wBBGzOvtncNKw d6R0ePV1T28vvh3yPGnt fMH3HFAaIkGkkzqqj3qm eRi9PYcjTvtmZxJp WKAydB62YKD8pP22Jh55 gSQjsBIpo7yyqJj3UnRs MSWcBFU9cZmkIQtkc9Tv OBUkL21brMSxx3L0 IGNvbGxhcHNlOyBlbXB0 gV8tTZxeqvuwo8arqzye Yzz7zd38mUUxm5H7jKD2 O2KopbJ7OJKazJEd NvwvwZMRuY1psfvfa2uv jftyUzMsADNzOWs3OWh4 SVJntRtwUbArQG05IBA5 ZBBtyzOfF6RiKHIf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 53102 Reason For Exam (CR Ankle 3+ Views [...] KRIKOR Transcribed Date and Time: 05/19/2021 8:51 [facility] Work Phone: [facility] Work Phone: Office Visit (Urgent Care)on 03-09-2021 [...] Today's date: 03/09/2021 Urgent Care Visit Location: [place] Description of circumstances for missed work. Off Work beginnin03/09/2021, may return on 03/10/2021 Signatures Electronically signed by : April Raymundo, MANAGER CODING-PHOTOGRAPHY TEACHER; Mar 09 2021 3:40PM EST (Author) Normal [facility] CORONAVIRUS 2019 BY PCRon SARS-CoV-2 (COVID-19) RNA RAMONA+probe Ql (Unsp spec) Not detected Normal Not Detected [facility] Comment on above: Result Comment: . [...] patient management decisions. Fact sheet for providers: https://www.fda.gov/media/957411/download Fact sheet for patients: https://www.fda.gov/media/673731/download This test has received FDA Emergency Use Authorization (EUA) and has been verified by [facility] ([facility]). This test is only authorized for the duration of time that circumstances exist to justify the authorization of the emergency use of in vitro diagnostic tests for the detection of SARS-CoV-2 virus and/or diagnosis of COVID-19 infection under section 564(b)(1) of the Act, 21 U.S.C. 360bbb-3(b)(1), unless the authorization is terminated or revoked sooner. [facility] is certified under CLIA-88 as qualified to perform high complexity testing. Testing is performed in the [facility] laboratories located at [id number] [place] [address]. Performed By: #### C OV19 #### [facility] [id number] [place], [place] [address] [facility] [address] CORONAVIRUS 2019 BY PCRon DATE OF SYMPTOM ONSET [YYYYMMDD]? [id number] [facility] Comment on above: Performed By: #### C OV19 #### [address] [facility] [address] EMPLOYED IN HEALTHCARE? Unknown [facility] Comment on above: Performed By: #### C OV19 #### [facility] [id number] [place] [address]. [place] [address] HOSPITALIZED (OR PLANNED TO BE ADMITTED)? No Normal [facility] Comment on above: Performed By: #### C OV19 #### [facility] [id number] [place], [place] [address] [address] ICU? No Normal [facility] Comment on above: Performed By: #### C OV19 #### [address] [place] [address] RESIDENT IN CONGREGATE CARE SETTING? Unknown [facility] Comment on above: Performed By: #### C OV19 #### [facility] [address] [place] [address] SARS-CoV-2 (COVID-19) Ab IA Ql Unknown [facility] Comment on above: Performed By: #### C OV19 #### [facility] [address] [place] [address] SYMPTOMATIC DEFINED BY CDC? Yes [facility] Comment on above: Performed By: #### C OV19 #### [facility] [address] [place] [address] Lab Specimen Source Nasal, Nasopharyngeal [facility] Comment on above: Performed By: #### C OV19 #### [facility] [address] [place] [address] SHOULDER, CMPLT, MIN 2 VIEWS on 06-06-2020 SHOULDER, CMPLT, MIN 2 VIEWS Patient Name: TAZ MCKEON STUDY: SHOULDER, CMPLT, MIN 2 VIEWS; Right; 06/06/2020 4:12 pm INDICATION: pain. COMPARISON: None. ACCESSION NUMBER(S): [id number] ORDERING CLINICIAN: KRISTINA BERGMAN FINDINGS: Four views of the right shoulder. Normal bone mineralization. No visible acute fractures or dislocations. The joint spaces are maintained. No periosteal reaction or cortical erosive changes. The soft tissues appear unremarkable. IMPRESSION: No visible acute fractures or dislocations. Electronically signed by: ANTIONE VARGAS MD [facility] Vital Signs Date Time Vital Sign Value Performing Clinician Facility 11-04-2024 11:12-0500 Blood Pressure Location Garfield Sanchezpsey [facility] 11-04-2024 11:12-0500 Body temperature 97.52 [degF] Garfield Sanchezpsey [facility] 11-04-2024 11:12-0500 Diastolic blood pressure 76 mm[Hg] Garfield Pereira [facility] 11-04-2024 11:12-0500 Heart rate 51 /min Garfield Sanchezpsey [facility] 11-04-2024 11:12-0500 SaO2% (BldA) [Mass fraction] 99 % Garfield Randall [facility] 11-04-2024 11:12-0500 Systolic blood pressure 118 mm[Hg] Garfield Pereira [facility] 06-03-2024 10:08-0400 Blood Pressure Location [employer] [facility] 06-03-2024 10:08-0400 Diastolic blood pressure 72 mm[Hg] MARII ZHOU [facility] 06-03-2024 10:08-0400 Heart rate 76 /min CHESAPEAKE PARIS [facility] 06-03-2024 10:08-0400 Respiratory rate 18 /min CHESAPEAKE PARIS [facility] 06-03-2024 10:08-0400 SaO2% (BldA) [Mass fraction] 98 % CHESAPEAKE ZHOU [facility] 06-03-2024 10:08-0400 Systolic blood pressure 118 mm[Hg] CHESAPEAKE ZHOU [facility] 05-03-2024 09:39-0400 Body height 170.18 cm [facility] 05-03-2024 09:39-0400 Body mass index (BMI) [Ratio] 26.6 kg/m2 [facility] 05-03-2024 09:39-0400 Body weight 77.11 kg [facility] 05-03-2024 09:39-0400 Diastolic blood pressure 77 mm[Hg] [facility] 05-03-2024 09:39-0400 Heart rate 60 /min [facility] 05-03-2024 09:39-0400 Systolic blood pressure 110 mm[Hg] [facility] 04-26-2024 14:21-0400 Blood Pressure Location Melanie Rolando [facility] 04-26-2024 14:21-0400 Body temperature 97.88 [degF] Melanie Abenaer [facility] 04-26-2024 14:21-0400 Diastolic blood pressure 75 mm[Hg] Melanie Princedner [facility] 04-26-2024 14:21-0400 Heart rate 43 /min Melanie Krafter [facility] 04-26-2024 14:21-0400 SaO2% (BldA) [Mass fraction] 98 % Melanie Marshall [facility] 04-26-2024 14:21-0400 Systolic blood pressure 110 mm[Hg] Melanie Marshall [facility] 03-12-2024 10:06-0400 Blood Pressure Location MARII PARIS [facility] 03-12-2024 10:06-0400 Body temperature 98.24 [degF] CHESAPEAKE ZHOU [facility] 03-12-2024 10:06-0400 Diastolic blood pressure 78 mm[Hg] CHESAPEAKE ZHOU [facility] 03-12-2024 10:06-0400 Heart rate 50 /min [facility] 03-12-2024 10:06-0400 Respiratory rate 18 /min CHESAPEAKE ZHOU [facility] 03-12-2024 10:06-0400 SaO2% (BldA) [Mass fraction] 99 % CHESAPEAKE ZHOU [facility] 03-12-2024 10:06-0400 Systolic blood pressure 108 mm[Hg] CHESAPEAKE ZHOU [facility] 08-13-2023 14:00-0500 Body height 170.18 cm Blue Hernandez Other [employer] Other 08-13-2023 14:00-0500 Body mass index (BMI) [Ratio] 25.68 kg/m2 Blue Hernandez Other [employer] Other 08-13-2023 14:00-0500 Body weight 74.39 kg Blue Cardenasbeverly Other [employer] Other 08-13-2023 14:00-0500 Diastolic blood pressure 69 mm[Hg] Blue Hernandez Other [employer] Other 08-13-2023 14:00-0500 Systolic blood pressure 108 mm[Hg] Blue Hernandez Other [employer] Other 05-19-2021 19:32-0400 Body temperature 98.6 [degF] [employer] Work Phone: 05-19-2021 19:32-0400 Body weight 65.77 kg [employer] Work Phone: 05-19-2021 19:32-0400 Diastolic blood pressure 77 mm[Hg] [employer] Work Phone: 05-19-2021 19:32-0400 Heart rate 66 /min [employer] Work Phone: 05-19-2021 19:32-0400 Respiratory rate 16 /min [employer] Work Phone: 05-19-2021 19:32-0400 SaO2% (BldA) [Mass fraction] 98 % [employer] Work Phone: 05-19-2021 19:32-0400 Systolic blood pressure 133 mm[Hg] [employer] Work Phone: 08-04-2020 21:24-0500 BMI (Body Mass Index) 24.28 kg/m2 [facility] Work Phone: 08-04-2020 21:24-0500 Body Temperature 97.4 [degF] [facility] Work Phone: 08-04-2020 21:24-0500 Body weight 70.31 kg Kristina [facility]man [facility] Work Phone: 08-04-2020 21:24-0500 BP Diastolic 104 mm[Hg] Kristina Bergman [facility] Work Phone: 08-04-2020 21:24-0500 BP Systolic 150 mm[Hg] Kristina Bergman [facility] Work Phone: 08-04-2020 21:24-0500 BSA (Body Surface Area) 1.81 m2 Kristina Bergman [facility] Work Phone: 08-04-2020 21:24-0500 Height 170.18 cm Kristina Bergman [facility] Work Phone: 08-04-2020 21:24-0500 Pulse (Heart Rate) 77 /min Kristina Bergman [facility] Work Phone: 08-04-2020 21:24-0500 Pulse Oximetry 98 % Kristina Bergman [facility] Work Phone: 08-04-2020 21:24-0500 Respiratory Rate 12 /min Kristina Bergman [facility] Work Phone: Encounters Encounter Date Encounter Type Care Provider Facility Start: 04-25-2025 End: 04-25-2025 Encounter identifier Dina Alvares DDS Work Phone[facility] Start: 04-25-2025 ambulatory Dina Alvares DDSaida [facility] Start: 04-22-2025 End: 04-22-2025 limited oral evaluation - problem focused Dina Alvares DDS Work Phone: [facility] Start: 04-22-2025 End: 04-22-2025 Encounter identifier Dina Alvares DDS Work Phone: [facility] Start: 03-22-2025 End: 03-22-2025 ambulatory Taylor Holliday Facility:[facility] Start: 03-22-2025 End: 03-22-2025 Patient encounter procedure Taylor Maggy Holliday [facility] Start: 03-15-2025 End: 03-15-2025 ambulatory MARIAN Yin [facility] Start: 03-15-2025 End: 03-15-2025 Subsequent hospital visit by physician Blue Hearn PT [facility] Physical Therapy Comment on above: Arrived Start: 03-10-2025 End: 03-10-2025 ambulatory MADONNA Yin [facility] Start: 03-10-2025 End: 03-10-2025 Subsequent hospital visit by physician Alecia Schroeder PT [facility] Physical Therapy Comment on above: Arrived Start: 03-08-2025 End: 03-08-2025 ambulatory MARIAN Yin [facility] Start: 03-08-2025 End: 03-08-2025 Subsequent hospital visit by physician Blue Hearn PT [facility] Physical Therapy Comment on above: Arrived Start: 03-01-2025 End: 03-01-2025 ambulatory MARIAN Yin [facility] Start: 03-01-2025 End: 03-01-2025 Subsequent hospital visit by physician Blue Hearn PT [facility] Physical Therapy Comment on above: Arrived Start: 02-25-2025 End: 02-25-2025 Subsequent hospital visit by physician Taylor [facility] Start: 02-24-2025 End: 02-24-2025 ambulatory MARIAN Yin [facility] Start: 02-24-2025 End: 02-24-2025 Subsequent hospital visit by physician Alecia Schroeder PT [facility] Physical Therapy Comment on above: Arrived Start: 02-22-2025 End: 02-22-2025 ambulatory MARIAN [facility]in [facility] Start: 02-22-2025 End: 02-22-2025 Subsequent hospital visit by physician Blue Hearn PT [facility] Physical Therapy Comment on above: Arrived Start: 02-18-2025 End: 02-18-2025 ambulatory MARIAN Yin [facility] Start: 02-18-2025 End: 02-18-2025 Subsequent hospital visit by physician Blue Hearn PT [facility] Physical Therapy Comment on above: Arrived Start: 02-17-2025 End: 02-17-2025 [facility] Start: 02-17-2025 End: 02-17-2025 Subsequent hospital visit by physician Santi Luna [facility] Physical Therapy Comment on above: Arrived Start: 02-15-2025 End: 02-15-2025 Subsequent hospital visit by physician Blue Hearn PT [facility] Physical Therapy Start: 02-11-2025 End: 02-11-[address] [facility] Start: 02-10-2025 ambulatory [facility] Start: 02-08-2025 End: 02-08-2025 [facility] Start: 02-08-2025 End: 02-08-2025 Subsequent hospital visit by physician Blue Hearn PT [facility] Physical Therapy Comment on above: Arrived Start: 01-31-2025 End: 01-31-2025 Subsequent hospital visit by physician Blue Hearn PT [facility] Start: 01-31-2025 ambulatory [facility] Start: 11-04-2024 End: 11-04-2024 ambulatory Garfield Pereira Facility:[facility] Start: 11-04-2024 End: 11-04-2024 Patient encounter procedure Garfield Pereira [facility] Start: 10-15-2024 End: 10-17-2024 [facility] Start: 10-15-2024 End: 10-17-2024 Subsequent hospital visit by physician [facility] Mri Scanner [facility] MRI Comment on above: Contusion of left kn ee, initial encounter; Sprain of patella, left, initial encounter Start: 07-19-2024 End: 07-21-2024 ambulatory MADONNA Yin [facility] Start: 07-19-2024 End: 07-21-2024 Subsequent hospital visit by physician Agustin Xr Dr Room 4 [facility] Radiology Comment on above: Pain Start: 07-18-2024 End: 07-18-2024 ambulatory TAYLOR LOONEY Facility:[facility] Start: 07-18-2024 End: 07-18-2024 Patient encounter procedure TAYLOR LOONEY [facility] Start: 06-03-2024 End: 06-03-2024 Lab Drop off MARII ZHOU [facility] Start: 06-03-2024 End: 06-03-2024 ambulatory MARII ZHOU [facility] Start: 06-03-2024 End: 06-03-2024 Patient encounter procedure MARII ZHOU [facility] Start: 05-03-2024 End: 05-03-2024 ambulatory [facility] Work Phone: Start: 05-03-2024 End: 05-03-2024 Patient encounter procedure [facility] Work Phone: Start: 04-26-2024 End: 04-26-2024 ambulatory Melanie Mary Marshall Facility:[facility] Start: 04-26-2024 End: 04-26-2024 Patient encounter procedure Melanie Mary Marshall [facility] Start: 03-12-2024 End: 03-12-2024 ambulatory PA-C MARII ZHOU Facility[facility] Start: 03-12-2024 End: 03-12-2024 Lab Drop off MARII ZHOU [facility] Start: 03-12-2024 End: 03-12-2024 ambulatory PA[facility]C [facility] Start: 03-12-2024 End: 03-12-2024 Patient encounter procedure MARII ZHOU [facility] Start: 02-24-2024 End: 02-25-2024 Pre-admission assessment VICTOR HUGO NASCIMENTO [facility] Start: 12-18-2023 End: 03-21-2024 ambulatory MELONY ALVARADO Facility[facility] Start: 11-17-2023 End: 11-17-2023 ambulatory [facility]O SHAMMO [facility] Start: 09-30-2023 End: 09-30-2023 ambulatory Blue Hernandez Other [employer] Other Start: 09-30-2023 Office outpatient visit 15 minutes Blue Hernandez [facility] Start: 09-17-2023 End: 09-17-2023 ambulatory Marito T Shammo Facility:[facility] Start: 08-18-2023 End: 08-18-2023 ambulatory Blue Hernandez Other [employer] Other Start: 08-18-2023 Telephone encounter Blue Lopez [facility] Start: 08-13-2023 End: 08-13-2023 Patient encounter procedure BINDER ROLLER-BC Marito Shammo Work Phone: [facility] [place] Work Phone: Start: 08-13-2023 End: 08-13-2023 ambulatory BINDER ROLLER-BC Marito T Shammo Work Phone: [facility] Work Phone: Start: 08-13-2023 Office outpatient new 30 minutes Blue Hernandez [facility] Start: 07-24-2023 ambulatory MELONY ALVARADO Facility:[facility] Start: 07-04-2021 End: 07-04-2021 Subsequent hospital visit by physician Jamel Santa DO [facility] Start: 07-02-2021 End: 07-02-2021 Subsequent hospital visit by physician Jamel Santa DO [facility] Start: 06-25-2021 End: 06-25-2021 Subsequent hospital visit by physician Jamel Santa DO [facility] Start: 06-04-2021 End: 06-04-2021 Subsequent hospital visit by physician Jamel Santa DO Work Phone: [facility] MRI Comment on above: Arrived Start: 05-19-2021 End: 05-19-2021 Emergency department patient visit [facility] Emergency Dept Comment on above: Contusion of left he el, initial encounter (Primary Dx) Start: 08-04-2020 Patient encounter procedure Kristina [facility] [employer] Work Phone: Start: 06-06-2020 Patient encounter procedure Kristina [facility] Work Phone: Procedures Date Procedure Procedure Detail Performing Clinician Start: 04-25-2025 End: 04-25-2025 Documentation of current medications Dina Alvares DDS Work Phone: Start: 04-22-2025 End: 04-22-2025 bitewing - single radiographic image Dina Alvares DDS Work Phone: Start: 04-22-2025 End: 04-22-2025 intraoral - periapical first radiographic image Dina Alvares DDS Work Phone: Start: 04-22-2025 End: 04-22-2025 oral hygiene instructions Dina Alvares D DS Work Phone: Start: 10-15-2024 Mri any jt lower ext rem w/o contrast matrl Madonna Agosto MANAGER CODING - PHOTOGRAPHY TEACHER Work Phone: Start: 07-19-2024 Radiologic examinati on knee 3 views Madonna Agosto MANAGER CODING - PHOTOGRAPHY TEACHER Work Phone: Start: 05-19-2021 Radex ankle complete minimum 3 views James Gusman PA-C Work Phone: Extraction of wisdom tooth Lang NASCIMENTO Procedure on elbow VICTOR HUGO HENSON Tonsillectomy and adenoidectomy VICTOR HUGO NASCIMENTO Plan of Treatment Date Care Activity Detail Author Start: 05-27-2025 Taz Mckeon [facility] Work Phone: Start: 04-25-2025 [facility] Work Phone: Start: 04-22-2025 Influenza vaccination Flu vacc ine (Season Ended) [facility] Start: 03-15-2025 End: 03-15-2025 Patient encounter procedure 03/15/2025 7:00 AM EDT Appointment [facility] Physical Therapy [address] [place] [address] Blue Hearn, PT last visit approved [facility] Physical Therapy Comment on above: last visit approved Start: 03-10-2025 End: 03-10-2025 Patient encounter procedure 03/10/2025 7:00 AM EDT Appointment [facility] Physical Therapy [address] [place], [place] [phone] Alecia Schroeder, PT [facility] Physical Therapy Start: 03-08-2025 End: 03-08-2025 Patient encounter procedure 03/08/2025 7:45 AM EDT Appointment [facility] Physical Therapy [address] [place], [place] [phone] Blue Hearn, PT measurements. sussy haynes [facility] Physical Therapy Comment on above: measurements. sussy de la cruz Start: 03-04-2025 End: 03-04-2025 Patient encounter procedure [facility] Physical Therapy Comment on above: 9 Start: 03-03-2025 End: 03-03-2025 Patient encounter procedure [facility] Physical Therapy Comment on above: 8 Start: 03-01-2025 End: 03-01-2025 Patient encounter procedure 03/01/2025 7:00 AM EDT Appointment [facility] Physical Therapy [address] [place], [place] [phone] Blue Hearn, PT 07/01 visits approved [facility] Physical Therapy Comment on above: 07/01 visits approve d f f [facility] Start: 02-25-2025 End: 02-25-2025 Patient encounter procedure [facility] Start: 02-24-2025 End: 02-24-2025 Patient encounter procedure [facility] Physical [facility] Start: 02-22-2025 End: 02-22-2025 Patient encounter procedure 02/22/2025 7:00 AM EDT Appointment [facility] Physical Therapy [address] [place], [place] [phone] Blue Hearn, PT [facility] Physical Therapy Start: 02-18-2025 End: 02-18-2025 Patient encounter procedure 02/18/2025 7:30 AM EDT Appointment [facility] Physical Therapy [address] [place], [place] [phone] Blue Hearn, PT [facility] Physical Therapy Start: 02-17-2025 End: 02-17-2025 Patient encounter procedure 02/17/2025 7:15 AM EDT Appointment [facility] Physical Therapy [address] [place], [place] [phone] Santi Luna [facility] Physical Therapy Start: 02-15-2025 End: 02-15-2025 Patient encounter procedure 02/15/2025 7:00 AM EDT Appointment [facility] Physical Therapy [address] [place] [phone] Santi Luna [facility] Therapy Start: 02-11-2025 End: 02-11-2025 Patient encounter procedure 02/11/2025 7:30 AM EDT Appointment [facility] Physical Therapy [address] [place] [phone] Blue Hearn, PT [facility] Physical Therapy Start: 02-10-2025 End: 02-10-2025 Patient encounter procedure 02/10/2025 7:45 AM EDT Appointment [facility] Physical Therapy [address] [place] [phone] Alecia Schroeder, PT [facility] Physical Therapy Start: 02-08-2025 End: 02-08-2025 Patient encounter procedure 02/08/2025 8:00 AM EDT Appointment [facility] Physical Therapy [address] [place] [phone] Blue Hearn, PT [facility] Start: 05-23-2024 COVID-19 Vaccine ( season) COVID-19 Vaccine ( season) [facility] Start: 05-23-2024 COVID-19 Vaccine ( season) COVID-19 Vaccine ( season) [facility] Start: 04-22-2024 Influenza vaccination Flu vaccine (# 1) [facility] Start: 05-23-2021 Influenza vaccination Flu vaccine (# 1) [facility] Work Phone: Start: 10-03-2020 DTaP/Tdap/Td vaccine (4 - Td or Tdap) DTaP/Tdap/Td vaccine (4 - Td or Tdap) [facility] Work Phone: Start: 10-03-2020 DTaP/Tdap/Td vaccine (7 - Td or Tdap) DTaP/Tdap/Td vaccine (7 - Td or Tdap) [facility] Start: 2018 Hepatitis B vaccine (1 of 3 - 19+ 3-dose series) Hepatitis B vaccine (1 of 3 - 19+ 3-dose series) [facility] Start: 2017 Hepatitis C screening Hepatitis C sc reen [facility] Start: 05-26-2014 HPV vaccine (2 - Mal e 3-dose series) HPV vaccine (2 - Male 3-dose series) [facility] Work Phone: Start: 2014 HIV screening HIV screen [facility] Start: 2011 COVID-19 Vaccine (1) COVID-19 Vaccin e (1) [facility] Work Phone: Start: 2011 Depression Screen Depression Screen [facility] Start: 01-02-2007 Varicella vaccine (2 of 2 - 2-dose childhood series) Varicella vaccine (2 of 2 - 2-dose childhood series) [facility] Work Phone: Start: 1999 Hepatitis C screening Hepatitis C sc reen [facility] Work Phone: End: 06-04-2021 Mri any jt lower extrem w/o contrast matrl MRI LOWER EXTREMITY LEFT W JT WO CONTRAST Imaging Routine Once for 1 Occurrences starting 06/04/2021 until 06/04/2021 [facility] Work Phone: Comment on above: Once for 1 Occurrenc es starting 06/04/2021 until 06/04/2021 Mri any jt lower ext rem w/o contrast matrl MRI LOWER EXTREMITY LEFT W JT WO CONTRAST Imaging Routine 06/04/2021 11:23 AM EDT [facility] Work Phone: Immunizations Immunization Date Immunization Notes Care Provider Fa cility 08-29-2021 SARS-CoV-2 (COVID-19 ) Ad26 vaccine, recombinant MARII ZHOU [facility] 03-07-2021 SARS-CoV-2 (COVID-19 ) Ad26 vaccine, recombinant MARII ZHOU [facility] NEGATED: Highlighted row has not occurred!11-04-2024 influenza virus vaccine, unspecified formulation Garfield Sanchezpsey [facility] Payers Date Payer Category Payer Unknown [id number] 2024 Unknown [id number] 2023 Self-pay 2022 Medicaid [id number] 2022 Medicaid [id number] 2021 Unknown [facility] [place] [facility] [id number] 2021-Present [phone] [address] [place] [address] [id number] 1999 Unknown [id number] 2.16.840.1.517626.3.579.2.72 1999 Unknown [id number] 2.16.840.1.635113.3.579.2.72 1999 Unknown [id number] 2.16.840.1.287431.3.579.2.72 1999 Unknown [id number] 2.16.840.1.672311.3.579.2.72 1999 Unknown [id number] 2.16.840.1.760920.3.579.2. 1999 Unknown [id number] 2.16.840.1.790867.3.579.2.72 1999 Unknown [id number] 2.16840.1.384937.3.579.2.72 1999 Unknown [id number] 2.16.840.1.767444.3.579.2.72 1999 Unknown [id number] 2.16.840.1.238713.3.579.2. 1999 Unknown [id number] 2.16840.1.431132.3.579.2.72 1999 Unknown [id number] 2.16.840.1.662801.3.579.2.173 1999 Unknown [id number] 2.16.840.1.892679.3.579.2.173 1999 Unknown [id number] 2.16.840.1.560184.3.579.2.173 1999 Unknown [id number] 2.16.840.1.826217.3.579.2.173 1999 Unknown [id number] 2.16.840.1.020591.3.579.2.173 1999 Unknown [id number] 2.16.840.1.134800.3.579.2.173 1999 Unknown [id number] 2.16.840.1.332848.3.579.2.173 1999 Unknown [id number] 2.16.840.1.420751.3.579.2.173 1999 Unknown [id number] 2.16.840.1.792105.3.579.2.173 1999 Unknown [id number] 2.16.840.1.934893.3.579.2.173 1999 Unknown [id number] 2.16.840.1.167430.3.579.2.173 1999 Unknown [id number] 2.16.840.1.511205.3.579.2.173 1999 Unknown [id number] 2.16.840.1.345760.3.579.2.173 1999 Unknown [id number] 2.16.840.1.998809.3.579.2.716 Unknown [id number] 2.16.840.1.501054.3.579.2.531 Unknown [id number] 2.16.840.1.176149.3.579.2.531 Unknown [id number] Social History Date Type Detail Facility Assertion [facility] ([facility] Work [facility]: Start: 05-19-2021 End: 11-04-2024 Tobacco smoking status NVIS Never smoker [facility] Start: 05-19-2021 End: 06-14-2021 Tobacco use and exposure Never used [facility] Start: 05-19-2021 End: 06-14-2021 Alcohol intake Ex-drinker (finding) [facility] Work Phone: Start: 1999 Sex Assigned At Not on file [facility] Work Phone: Exposure to SARS-CoV -2 (event) Not sure [facility] Start: 2000 Sex Assigned At Male [facility] Work Phone: Start: 06-14-2021 Sex Assigned At [facility] Tobacco smoking status [facility] Tobacco smoking status Never [facility] Start: 06-14-2021 History of Social function [facility] Start: 06-13-2021 Gender identity Identifies as male gender (finding) [facility] Start: 05-19-2021 Sex Male (finding) [facility] Start: 04-25-2025 Tobacco smoking status NHIS Unknown if ever smoked [facility] Sexual Orientation Straight or heterosexu al [facility] Work Phone: Start: 04-25-2025 Alcohol intake Alcohol Use Details [facility] Functional Status Date Assessment Result Facility 11-04-2024 Functional Status N/A [facility] 06-03-2024 Functional Status N/A [facility] 04-26-2024 Functional Status N/A [facility] 03-12-2024 Functional Status N/A [facility] NEGATED: Highlighted row Functional performance Functional status health issues are not documented Disease [facility] Work Phone: Mental Status Date Assessment Result Facility NEGATED: Highlighted row Cognitive function [Interpretation] Cognitive status health issues are not documented Disease [facility] Work Phone: Clinical Notes 05-19-2021 to 04-25-2025 Note Date & Type Note Facility 04-25-2025 History of Presen t illness Narrative Encounter Date PE [facility] Work Phone: [phone] History of Present illness Narrative* Blue Hearn, PT - 03/15/2025 7:00 AM EDT [facility] Daily Note Patient: Taz Mckeon : 2000 CSN #: [id number] Referring Physician: Marian Call MD Date: 03/15/2025 Treatment Diagnosis: L quadriceps tear, L knee pain, L LE weakness. Onset Date: 07/19/24 PT Insurance Information: [facility] Total # of Visits Approved: 10 Per Physician Order Total # of Visits to Date: 10 No Show: 0 Canceled Appointment: 03/18/25 Plan of Care/Recert Due Pre-Treatment Pain: 3-12/30 Subjective: The patient reports continued 3-4/10 bilateral knee pain coming into therapy today. Exercises: Exercise 2: See exercise flow sheet (will be scanned into patient's chart at a later date) Modality: Modality Flow Sheet: Performed (X) Tx Modality X Cold Pack: x10 minutes to bilateral knees (not charged) Assessment Body Structures, Functions, Activity Limitations Requiring Skilled Therapeutic Intervention: Decreased functional mobility , Decreased ADL status, Decreased strength, Decreased endurance, Decreased balance, Decreased high-level IADLs, Increased pain Assessment: The patient has attended 10 visits for work conditioning. He has reported continued bilateral knee pain that limits his ability for box lifts and pulling tasks. He denies any issue with step ups and pushing tasks. Measures were obtained 2 visits ago (03/08/25) where he was able to perform a max lift from the floor with 70# from the floor rating it as a 9/10 on the RPE scale. Push/pull averages with the hand dynamometer measured 69.5# for pushing and 103# for pulling and improvement from initial with his push average of 65# and pull average of 78#. He was able perform a 50# box liftrepetitively today along with push/pulling 95#. He reports an increase in generalized knee pain following his tx session and requested ice. Activity Tolerance Activity Tolerance: Patient limited by pain Patient Education Patient Education: Continue flexibility, quad, and hip strengthening exercises. Pt verbalized/demonstrated good understanding: [x] Yes [] No, pt required further clarification. Post Treatment Pain: 01/29 Plan Plan Frequency: 3 Plan weeks: 4 Goals (Total # of Visits to Date: 10) Short Term Goals Time Frame for Short Term Goals: 2 weeks Short Term Goal 1: Patient will be initiated with a HEP -MET Short Term Goal 2: Patient will tolerate 2 hours of work conditioning. Outreach Specialist Goals Time Frame for Outreach Specialist Goals : 4 weeks Outreach Specialist Goal 1: Patient will be independent and compliant with a HEP Outreach Specialist Goal 2: Patient will improve L LE strength to >4/5 in all major joints and planes for work activities. Prison Goal 3: Patient will be able to lift 70# from the floor to waist height to return to normal work activities - Partially met: is able to lift as one rep max, but could not perform repetitions at this weight. Prison Goal 5: Patient will report 70% improvement in overall symptoms and function. Minutes Tracking: Time In: 0700 Time Out: 0850 Minutes: 110 Timed Code Treatment Minutes: 100 Minutes Treatment Charges: Code Total Mins Units Time In/Out [] Evaluation [] Low [] Moderate [] High [] Re-Evaluation [id number] 70363 94388 [] Ther Exercise 59564 [] Manual Therapy 53001 [] Unattend Estim 77603 [] Ultrasound 12997 [] Iontophoresis 67307 [] Neuro Sury 44137 [] Aquatics 84858 [] Traction 27341 [] Vasopneumatic/Cold 53702 [x] Work Hardening 13208 100 1 1288-0720 [] FCE 76899 Total Treatment time 100 mins Total Time of Time Codes 100 mins Blue Hearn PT , DPT, OCS, Cert. DN Date: 03/15/2025 documented in this encounterBon [facility] History of Present illness Narrative* Alecia Schroeder PT - 03/10/2025 7:00 AM EDT [facility] Daily Note Patient: Taz Mckeon : 2000 CSN #: [id number] Referring Physician: Madonna Agosto APRN * Date: 03/10/2025 Diagnosis: Quadriceps muscle rupture, L , S76.112D Treatment Diagnosis: L quadriceps tear, L knee pain, L LE weakness. Onset Date: 07/19/24 PT Insurance Information: [facility] Total # of Visits Approved: 10 Per Physician Order Total # of Visits to Date: 9 No Show: 0 Canceled Appointment: 6 03/18/25 Plan of Care/Recert Due Pre-Treatment Pain: 12/30 Subjective: Pt reports 3/10 L knee pain and 4/10 R knee pain today. Exercises: Exercise 2: See exercise flow sheet (will be scanned into patient's chart at a later date) Assessment Assessment: Pt increased time on the arm bike today and held progressions on everything else. One visit remaining. Activity Tolerance Activity Tolerance: Patient limited by pain Patient Education Progress exercises as able, increase total time as able Pt verbalized/demonstrated good understanding: [x] Yes [] No, pt required further clarification. Post Treatment Pain: 03/01 Plan Plan Frequency: 3 Plan weeks: 4 Goals (Total # of Visits to Date: 9) Short Term Goals Time Frame for Short Term Goals: 2 weeks Short Term Goal 1: Patient will be initiated with a HEP -MET Short Term Goal 2: Patient will tolerate 2 hours of work conditioning. Outreach Specialist Goals Time Frame for Prison Goals : 4 weeks Prison Goal 1: Patient will be independent and compliant with a HEP Prison Goal 2: Patient will improve L LE strength to >4/5 in all major joints and planes for work activities. Prison Goal 3: Patient will be able to lift 70# from the floor to waist height to return to normal work activities - Partially met: is able to lift as one rep max, but could not perform repetitions at this weight. Prison Goal 4: Patient will be able to push/pull 120# sled to return to normal work activities -PARTIALY MET: 95# push/pull with sled. Prison Goal 5: Patient will report 70% improvement in overall symptoms and function. Minutes Tracking: Time In: 0700 Time Out: 0815 Minutes: 75 Timed Code Treatment Minutes: 74 Minutes Treatment Charges: Code Total Mins Units Time In/Out [] Evaluation [] Low [] Moderate [] High [] Re-Evaluation 96831 59669 06452 87971 [] Ther Exercise 75403 [] Manual Therapy 34335 [] Unattend Estim 65199 [] Ultrasound 72891 [] Iontophoresis 62540 [] Neuro Sury 71400 [] Aquatics 17896 [] Traction 15836 [] Vasopneumatic/Cold 89450 [x] Work Hardening 35885 74 1 0700/0814 14830 Total Treatment time 74 mins Total Time of Time Codes 74 mins Alecia Schroeder PT, DPT Date: 03/10/2025 documented in this encounterBon [facility] History of Present illness Narrative* Blue Hearn, PT - 03/08/2025 7:45 AM EDT [facility] Daily Note Patient: Taz Mckeon : 2000 CSN #: [id number] Referring Physician: Marian Call MD Date: 03/08/2025 Treatment Diagnosis: L quadriceps tear, L knee pain, L LE weakness. Onset Date: 07/19/24 PT Insurance Information: [facility] Total # of Visits Approved: 10 Per Physician Order Total # of Visits to Date: 8 No Show: 0 Canceled Appointment: 6 02/25/25 Plan of Care/Recert Due Pre-Treatment Pain: 03/01 Subjective: Patient reports 4/10 L knee pain coming into therapy today and 6/10 R knee pain coming into therapy today. Exercises: Exercise 2: See exercise flow sheet (will be scanned into patient's chart at a later date) Assessment Body Structures, Functions, Activity Limitations Requiring Skilled Therapeutic Intervention: Decreased functional mobility , Decreased ADL status, Decreased strength, Decreased endurance, Decreased balance, Decreased high-level IADLs, Increased pain Assessment: The patient has attended his initial consultation and 7 follow-up visits for work conditioning. He has had to cancel 6 appointments due to work and his grandmother being sick and passing away. He has been limited in his progression of exercises due to bilateral knee pain. He has reported his R knee has been more painful than his L. He has been able to perform 40# box lifts which increases his pain and has reported pulling a weighted sled has increased his pain which are two tasks that he has to do in a normal work day. He reports step ups and other exercises are not an issue. Today he was able to perform a max lift of 70# from the floor rating it as a 9/10 on the RPE scale. Push/pull averages with the hand dynamometer measured 69.5# for pushing and 103# for pulling and improvement from initial with his push average of 65# and pull average of 78#. He has 2 remaining visits ifhis date is extended. Activity Tolerance Activity Tolerance: Patient limited by pain Patient Education Patient Education: Continue to progress repetitions of exercises Pt verbalized/demonstrated good understanding: [x] Yes [] No, pt required further clarification. Post Treatment Pain: 03/01 Plan Plan Frequency: 3 Plan weeks: 4 Goals (Total # of Visits to Date: 8) Short Term Goals Time Frame for Short Term Goals: 2 weeks Short Term Goal 1: Patient will be initiated with a HEP -MET Short Term Goal 2: Patient will tolerate 2 hours of work conditioning. Prison Goals Time Frame for Prison Goals : 4 weeks Prison Goal 1: Patient will be independent and compliant with a HEP Outreach Specialist Goal 2: Patient will improve L LE strength to >4/5 in all major joints and planes for work activities. Prison Goal 3: Patient will be able to lift 70# from the floor to waist height to return to normal work activities - Partially met: is able to lift as one rep max, but could not perform repetitions at this weight. Outreach Specialist Goal 4: Patient will be able to push/pull 120# sled to return to normal work activities -PARTIALY MET: 95# push/pull with sled. Outreach Specialist Goal 5: Patient will report 70% improvement in overall symptoms and function. Minutes Tracking: Time In: 0740 Time Out: 0910 Minutes: 90 Timed Code Treatment Minutes: 88 Minutes Treatment Charges: Code Total Mins Units Time In/Out [] Evaluation [] Low [] Moderate [] High [] Re-Evaluation 51553 75166 68707 84017 [] Ther Exercise 35965 [] Manual Therapy 75828 [] Unattend Estim 86984 [] Ultrasound 82399 [] Iontophoresis 24872 [] Neuro Sury 07538 [] Aquatics 87365 [] Traction 20908 [] Vasopneumatic/Cold 18846 [x] Work Hardening 66313 88 1 4624-4609 [] FCE 46782 Total Treatment time 88 mins Total Time of Time Codes 88 mins Blue Hearn PT, DPT, OCS, Cert. DN Date: 03/08/2025 documented in this encounterBon [facility] History of Present illness Narrative* Blue Hearn, PT - 03/01/2025 7:00 AM EDT [facility] Daily Note Patient: Taz Mckeon : 2000 CSN #: [id number] Referring Physician: Marian Call MD Date: 03/01/2025 Treatment Diagnosis: L quadriceps tear, L knee pain, L LE weakness. Onset Date: 07/19/24 PT Insurance Information: [facility] Total # of Visits Approved: 10 Per Physician Order Total # of Visits to Date: 7 No Show: 0 Canceled Appointment: 4 02/25/25 Plan of Care/Recert Due Pre-Treatment Pain: 4-5/10 Subjective: Patient reports 4-5/10 R knee pain. He started with box lifts today and reports R patella/superior patella pain. He reports his grandmother this AM. Exercises: Exercise 2: See exercise flow sheet (will be scanned into patient's chart at a later date) Modality: Modality Flow Sheet: Performed (X) Tx Modality X Cold Pack: to bilateral knees x10 minutes to decrease pain. Assessment Body Structures, Functions, Activity Limitations Requiring Skilled Therapeutic Intervention: Decreased functional mobility , Decreased ADL status, Decreased strength, Decreased endurance, Decreased balance, Decreased high-level IADLs, Increased pain Assessment: The patient started with box lifts this AM and reported 4-5/10 R patella/superior patella pain. He was educated to start with a warm-up on the bike. Maintained previous weights due to increased pain, and did increase treadmill ambulation time to 15 minutes. He continued to report an increase in pain with box lifts and sled pull. He reports everything else is ok. He reports 7-8/10 bilateral knee pain following his tx session. He requested ice to bilateral knees following his tx session. Activity Tolerance Activity Tolerance: Patient tolerated treatment well Patient Education Patient Education: Continue to progress repetitions of exercises Pt verbalized/demonstrated good understanding: [x] Yes [] No, pt required further clarification. Post Treatment Pain: 05/01 Plan Plan Frequency: 3 Plan weeks: 4 Goals (Total # of Visits to Date: 7) Short Term Goals Time Frame for Short Term Goals: 2 weeks Short Term Goal 1: Patient will be initiated with a HEP -MET Short Term Goal 2: Patient will tolerate 2 hours of work conditioning. Outreach Specialist Goals Time Frame for Prison Goals : 4 weeks Prison Goal 1: Patient will be independent and compliant with a HEP Prison Goal 2: Patient will improve L LE strength to >4/5 in all major joints and planes for work activities. Outreach Specialist Goal 3: Patient will be able to lift 70# from the floor to waist height to return to normal work activities. Outreach Specialist Goal 4: Patient will be able to push/pull 120# sled to return to normal work activities. Prison Goal 5: Patient will report 70% improvement in overall symptoms and function. Minutes Tracking: Time In: 0703 Time Out: 0840 Minutes: 97 Timed Code Treatment Minutes: 87 Minutes Treatment Charges: Code Total Mins Units Time In/Out [] Evaluation [] Low [] Moderate [] High [] Re-Evaluation 13255 97623 75084 92893 [] Ther Exercise 81438 [] Manual Therapy 32209 [] Unattend Estim 07226 [] Ultrasound 91367 [] Iontophoresis 19127 [] Neuro Sury 82136 [] Aquatics 96862 [] Traction 84575 [] Vasopneumatic/Cold 63502 [x] Work Hardening 08998 87 1 0521-1076 [] FCE 11419 Total Treatment time 97 mins Total Time of Time Codes 87 mins Blue Hearn PT, DPT, OCS, Cert. DN Date: 03/01/2025 documented in this encounterBon [facility] History of Present illness Narrative* Yelitza Solo - 02/25/2025 7:00 AM EDT [facility]Observation[facility]Outpatient Rehabilitation Date: 02/25/2025 Patient Name: Taz Mckeon [] Inpatient Acute/Observation Outpatient : 2000 [x] [] Pt refused/declined therapy at this time due to: [x] Pt cancelled due to: [x] No Reason Given [] Sick/ill [] Other: [] Evaluation held by RN/Provider/Physical Therapist due to: [] High Heart Rate [] High Blood Pressure [] Orthopedic Consult [] Hgb < 7 [] Other: [] Pt ordered brace per physician request: [] Proper fit will be completed and education for wearing/skin checks [] Pt does not require skilled services due to: Therapist/Char Dust Cleaner [employer] Salvager will attempt to see this patient, at our earliest opportunity. Yelitza Solo Date: 02/25/2025 Cosigned by Taylor Ramos PTA at 02/25/2025 7:02 AM EDT documented in this encounterBon [facility] History of Present illness Narrative* Alecia Schroeder, PT - 02/24/2025 7:00 AM EDT [facility] Daily Note Patient: Taz Mckeon : 2000 CSN #: [id number] Referring Physician: Marian Call MD Date: 02/24/2025 Diagnosis: Quadriceps muscle rupture, L , S76.112D Treatment Diagnosis: L quadriceps tear, L knee pain, L LE weakness. Onset Date: 07/19/24 PT Insurance Information: [facility] Total # of Visits Approved: 10 Per Physician Order Total # of Visits to Date: 6 No Show: 0 Canceled Appointment: 2 02/25/25 Plan of Care/Recert Due Pre-Treatment Pain: 3/10 Subjective: Pt reports 3/10 leg pain continues. Recommended pt increase weight on box lifts per plan from last visit but pt refuses today. Recommended patient increase his total time here today to progress endurance but patient states he's very tired from being up since 2am. Pt is agreeable to try increased weight on sled push/pulls. Exercises: Exercise 1: HEP: SLR x16, x7 Exercise 2: See exercise flow sheet (will be scanned into patient's chart at a later date) Modality: Cold packs to B knees x15 min to decrease pain Assessment Assessment: Educated patient on plan to increase weight on sled push/pull today, and also recommended he try to increase his total time here to work towards endurance goals. Checked in with patient at end and he c/o increased pain in B knees to 8/10 and reported he had decided to increase weight and reps with other exercises today, not just the sled. Educated patient he should not have increased everything all at once. Pt demo's fair understanding. Ended session with 15 min of ice to B knees todecrease pain. Will continue. Activity Tolerance Activity Tolerance: Patient tolerated treatment well Patient Education Exercise technique, progression Pt verbalized/demonstrated good understanding: [x] Yes [] No, pt required further clarification. Post Treatment Pain: 210 Plan Plan Frequency: 3 Plan weeks: 4 Goals (Total # of Visits to Date: 6) Short Term Goals Time Frame for Short Term Goals: 2 weeks Short Term Goal 1: Patient will be initiated with a HEP -MET Short Term Goal 2: Patient will tolerate 2 hours of work conditioning. Outreach Specialist Goals Time Frame for Prison Goals : 4 weeks Outreach Specialist Goal 1: Patient will be independent and compliant with a HEP Prison Goal 2: Patient will improve L LE strength to >4/5 in all major joints and planes for work activities. Prison Goal 3: Patient will be able to lift 70# from the floor to waist height to return to normal work activities. Prison Goal 4: Patient will be able to push/pull 120# sled to return to normal work activities. Outreach Specialist Goal 5: Patient will report 70% improvement in overall symptoms and function. Minutes Tracking: Time In: 702 Time Out: 829 Minutes: 87 Timed Code Treatment Minutes: 72 Minutes Treatment Charges: Code Total Mins Units Time In/Out [] Evaluation [] Low [] Moderate [] High [] Re-Evaluation 23748 [phone] [id number] [] Ther Exercise 61329 [] Manual Therapy 43648 [] Unattend Estim 86403 [] Ultrasound 14568 [] Iontophoresis 41512 [] Neuro Sury 35642 [] Aquatics 96807 [] Traction 73083 [] Vasopneumatic/Cold 32626 [x] Work Hardening 94524 72 1 702/0815 [] FCE 90014 Total Treatment time 72 mins Total Time of Time Codes 72 mins Alecia Schroeder, PT, DPT Date: 02/24/2025 documented in this encounterBon [facility] History of Present illness Narrative* Blue Hearn, PT - 02/22/2025 7:00 AM EDT [facility] Outpatient Physical Therapy Daily Note Patient: Taz Mckeon : 2000 CSN #: [id number] Referring Physician: Marian Call MD Date: 02/22/2025 Treatment Diagnosis: L quadriceps tear, L knee pain, L LE weakness. Onset Date: 07/19/24 PT Insurance Information: [facility] Total # of Visits Approved: 10 Per Physician Order Total # of Visits to Date: 5 No Show: 0 Canceled Appointment: 2 02/25/25 Plan of Care/Recert Due Pre-Treatment Pain: 3/10 Subjective: Patient reports 3/10 leg pain coming into therapy today. 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 Will plan to add resistance with exercises next visit. Activity Tolerance Activity Tolerance: Patient tolerated treatment well Patient Education Patient Education: Continue to progress repetitions of exercises Pt verbalized/demonstrated good understanding: [x] Yes [] No, pt required further clarification. Post Treatment Pain: 3/10 Plan Plan Frequency: 3 Plan weeks: 4 Goals (Total # of Visits to Date: 5) Short Term Goals Time Frame for Short Term Goals: 2 weeks Short Term Goal 1: Patient will be initiated with a HEP -MET Short Term Goal 2: Patient will tolerate 2 hours of work conditioning. Outreach Specialist Goals Time Frame for Outreach Specialist Goals : 4 weeks Outreach Specialist Goal 1: Patient will be independent and compliant with a HEP Outreach Specialist Goal 2: Patient will improve L LE strength to >4/5 in all major joints and planes for work activities. Outreach Specialist Goal 3: Patient will be able to lift 70# from the floor to waist height to return to normal work activities. Outreach Specialist Goal 4: Patient will be able to push/pull 120# sled to return to normal work activities. Prison Goal 5: Patient will report 70% improvement in overall symptoms and function. Minutes Tracking: Time In: 0704 Time Out: 0804 Minutes: 60 Timed Code Treatment Minutes: 58 Minutes Treatment Charges: Code Total Mins Units Time In/Out [] Evaluation [] Low [] Moderate [] High [] Re-Evaluation 78797 [id number] [id number] [] Ther Exercise 19963 [] Manual Therapy 11234 [] Unattend Estim 02712 [] Ultrasound 11506 [] Iontophoresis 45080 [] Neuro Sury 23020 [] Aquatics 27885 [] Traction 69261 [] Vasopneumatic/Cold 92777 [x] Work Hardening 23554 58 1 [phone] [] FCE 29893 Total Treatment time 58 mins Total Time of Time Codes 58 mins Blue Hearn PT, DPT, OCS, Cert. DN Date: 02/22/2025 documented in this encounterBon [facility] History of Present illness Narrative* Blue Hearn, MARK - 02/18/2025 7:30 AM EDT [facility] Outpatient Physical Therapy Daily Note Patient: Taz Mckeon : 2000 CSN #: [id number] Referring Physician: Marian Call MD Date: 02/18/2025 Treatment Diagnosis: L quadriceps tear, L knee pain, L LE weakness. Onset Date: 07/19/24 PT Insurance Information: [facility] Total # of Visits Approved: 10 Per Physician Order Total # of Visits to Date: 4 No Show: 0 Canceled Appointment: 2 02/25/25 Plan of Care/Recert Due Pre-Treatment Pain: 4/10 Subjective: Patient reports 4/10 leg pain coming into therapy today. Exercises: Exercise 2: See exercise flow sheet (will be scanned into patient's chart at a later date) Modality: Modality Flow Sheet: Performed (X) Tx Modality X Cold Pack: x15 minutes to decrease pain (not charged) Assessment Body Structures, Functions, Activity Limitations Requiring Skilled Therapeutic Intervention: Decreased functional mobility , Decreased ADL status, Decreased strength, Decreased endurance, Decreased balance, Decreased high-level IADLs, Increased pain Assessment: The patient's program was maintained today with no changes. He reports increased pain with box lifts and karon step overs today. He reports pain increased to 8/10. He reports he felt like his R knee was giving way with box lifts. Patient used ice post tx session to decrease pain. Activity Tolerance Activity Tolerance: Patient tolerated treatment well Patient Education Patient Education: HEP Pt verbalized/demonstrated good understanding: [x] Yes [] No, pt required further clarification. Post Treatment Pain: 6/10 Plan Plan Frequency: 3 Plan weeks: 4 Goals (Total # of Visits to Date: 4) Short Term Goals Time Frame for Short Term Goals: 2 weeks Short Term Goal 1: Patient will be initiated with a HEP -MET Short Term Goal 2: Patient will tolerate 2 hours of work conditioning. Prison Goals Time Frame for Prison Goals : 4 weeks Outreach Specialist Goal 1: Patient will be independent and compliant with a HEP Outreach Specialist Goal 2: Patient will improve L LE strength to >4/5 in all major joints and planes for work activities. Prison Goal 3: Patient will be able to lift 70# from the floor to waist height to return to normal work activities. Outreach Specialist Goal 4: Patient will be able to push/pull 120# sled to return to normal work activities. Prison Goal 5: Patient will report 70% improvement in overall symptoms and function. Minutes Tracking: Time In: 707 Time Out: 807 Minutes: 60 Timed Code Treatment Minutes: 58 Minutes Treatment Charges: Code Total Mins Units Time In/Out [] Evaluation [] Low [] Moderate [] High [] Re-Evaluation 78940 58016 [phone] [id number] [] Ther Exercise 74518 [] Manual Therapy 40880 [] Unattend Estim 10245 [] Ultrasound 74174 [] Iontophoresis 03226 [] Neuro Sury 62880 [] Aquatics 68093 [] Traction 67169 [] Vasopneumatic/Cold 24187 [x] Work Hardening 56598 58 1 [phone] [] FCE 97960 Total Treatment time 58 mins Total Time of Time Codes 73 mins Blue Hearn PT, DPT, OCS, Cert. DN Date: 02/18/2025 documented in this encounterBon [facility] History of Present illness Narrative* Santi Luna - 02/17/2025 7:15 AM EDT [facility] Outpatient Physical Therapy Daily Note Patient: Taz Mckeon : 2000 CSN #: [id number] Referring Physician: Marian Call MD Date: 02/17/2025 Diagnosis: Quadriceps muscle rupture, L , S76.112D Treatment Diagnosis: L quadriceps tear, L knee pain, L LE weakness. Onset Date: 07/19/24 PT Insurance Information: [facility] Total # of Visits Approved: 10 Per Physician Order Total # of Visits to Date: 3 No Show: 0 Canceled Appointment: 2 02/25/25 Plan of Care/Recert Due Pre-Treatment Pain: 3/10 Subjective: Pt reports with 3/10 pain. States his quad feels tight as well Exercises: Exercise 2: See exercise flow sheet (will be scanned into patient's chart at a later date) Assessment Assessment: Pt reports with mild pain--3/10. No complaints from previous session. Program progressed with good toleramce.Pain the same at completion of work conditioning Activity Tolerance Activity Tolerance: Patient tolerated treatment well Patient Education Patient Education: HEP Pt verbalized/demonstrated good understanding: [x] Yes [] No, pt required further clarification. Post Treatment Pain: 3/10 Plan Plan Frequency: 3 Plan weeks: 4 Goals (Total # of Visits to Date: 3) Short Term Goals Time Frame for Short Term Goals: 2 weeks Short Term Goal 1: Patient will be initiated with a HEP -MET Short Term Goal 2: Patient will tolerate 2 hours of work conditioning. Prison Goals Time Frame for Prison Goals : 4 weeks Outreach Specialist Goal 1: Patient will be independent and compliant with a HEP Prison Goal 2: Patient will improve L LE strength to >4/5 in all major joints and planes for work activities. Prison Goal 3: Patient will be able to lift 70# from the floor to waist height to return to normal work activities. Outreach Specialist Goal 4: Patient will be able to push/pull 120# sled to return to normal work activities. Outreach Specialist Goal 5: Patient will report 70% improvement in overall symptoms and function. Minutes Tracking: Time In: 07 Time Out: 08 Minutes: 62 Timed Code Treatment Minutes: 62 Minutes Treatment Charges: Code Total Mins Units Time In/Out [] Evaluation [] Low [] Moderate [] High [] Re-Evaluation 77625 69164 96017 59454 [] Ther Exercise 22159 [] Manual Therapy 71628 [] Unattend Estim 94508 [] Ultrasound 84588 [] Iontophoresis 66413 [] Neuro Sury 85575 [] Aquatics 09392 [] Traction 75746 [] Vasopneumatic/Cold 84777 [x] Work Hardening 11390 62 2 [phone] [] FCE 21187 Total Treatment time 62 mins Total Time of Time Codes 62 mins Santi Encarnacion Date: 02/17/2025 Cosigned by Blue Hearn, PT at 02/17/2025 9:43 AM EDT documented in this encounterBon [facility] History of Present illness Narrative* Yelitza Solo - 02/15/2025 7:00 AM EDT [facility] Out[facility] Rehabilitation No-Show Note Date: 02/15/2025 Patient Name: Taz Mckeon : 2000 [x] Pt no showed for scheduled appointment and was contacted regarding compliancy. Patient called and stated that he is out of town due to grandmother being hospitalized. Confirmed that he would be here for next scheduled appt. We will monitor attendance for adherence to attendance policy and contact patient/physician as appropriate. Yelitza Solo Date: 02/15/2025 Cosigned by Blue Hearn, PT at 02/15/2025 7:22 AM EDT documented in this encounterBon [facility] History of Present illness Narrative* Blue Hearn, PT - 02/08/2025 8:00 AM EDT [facility] Out[facility] Physical Therapy Evaluation Date: 02/08/2025 Patient: Taz Mckeon : 2000 CSN #: [id number] Referring Physician: Marian Call MD Medical Diagnosis: Quadriceps muscle rupture, L , S76.112D Treatment Diagnosis: L quadriceps tear, L knee pain, L LE weakness. Onset Date: 07/19/24 PT Insurance Information: [facility] Total # of Visits Approved: 10 Total # of Visits to Date: 1 No Show: 0 Canceled Appointment: 1 [x] This physician underwriter acknowledges review of patient history form Subjective Subjective: Patient reports a grade one quad tear when he was pulling a cart with product when he slipped and the cart fell on his L leg. He reports L leg pain that can radiate up to his back and down to his foot at times. He also reports R knee pain which he thinks is due to overcompensating for his L knee. He reports pain ranges from 4/10 at best to 8/10 at worst. He reports he has been approved through [facility] for L hip and LBP. He reports increased pain with lifting and running. He uses heat and ice to decrease his pain. Additional Pertinent Hx: HTN, Anxiety, depression, hx of Bilat. Ulnar nerve transposition Observations: General Observations Description: Push: R foot in front: 60#, 65#, 70# L foot in front: 70#, 70#, 75#: Pull: R foot in front: 95#, 90#, 100#; L foot in front: 75#, 70#, 90# Ambulation/Gait (if applicable): Ambulation WB Status: FWB Ambulation Surface: Level tile Device: No Device Assistance: Independent Quality of Gait: WNL Distance: 25' Objective AROM AROM LLE (degrees) L Knee Flexion (0-145): 145 L Knee Extension (0): 10 AROM RLE (degrees) R Knee Flexion (0-145): 145 R Knee Extension (0): 10 Strength Strength LLE Strength LLE: Exception L Hip Flexion: 3+/5 L Hip Extension: 3+/5 L Hip ABduction: 3+/5 L Knee Flexion: 3+/5 L Knee Extension: 3+/5 L Ankle Dorsiflexion: 4/5 Strength RLE R Hip Flexion: 5/5 R Hip Extension: 4/5 R Hip ABduction: 4+/5 R Knee Flexion: 5/5 R Knee Extension: 5/5 R Ankle Dorsiflexion: 5/5 Exercises: Exercise 1: HEP: SLR x16, x7 Exercise 2: See exercise flow sheet (will be scanned into patient's chart at a later date) Functional Outcome Measures Max floor lift to waist: 45# with good mechanics, RPE of 10/10 Average push strength: 65# Average pull strength: 78# Assessment Body Structures, Functions, Activity Limitations Requiring Skilled Therapeutic Intervention: Decreased functional mobility , Decreased ADL status, Decreased strength, Decreased endurance, Decreased balance, Decreased high-level IADLs, Increased pain Assessment: The patient is a 24 y.o. male who was injured at work on 07/19/24 when he slipped and acart fell onto his L leg. He reports he was diagnosed with a grade one quadriceps tear. He is currently working with restrictions and reports he is restricted from lifting more than 50# and restricted with pulling and pushing activities. On evaluation he demonstrates full ROM of his L knee. He grossly 3+/5 strength of his L LE on MMT due to pain. He was able to perform 17 repetitions of a SLR without a quad lag. He was able to lift 45# from the floor with good mechanics with an RPE of 10/10. Push strength averaged 65# and pull strength averaged 78#. 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 Therapy Prognosis: Good Decision Making: Low Complexity Patient Education Patient Education: Work conditioning POC, HEP Pt verbalized/demonstrated good understanding: [X] Yes [] No, pt required further clarification. Goals Short Term Goals Time Frame for Short Term Goals: 2 weeks Short Term Goal 1: Patient will be initiated with a HEP Short Term Goal 2: Patient will tolerate 2 hours of work conditioning. Prison Goals Time Frame for Prison Goals : 4 weeks Prison Goal 1: Patient will be independent and compliant with a HEP Prison Goal 2: Patient will improve L LE strength to >4/5 in all major joints and planes for work activities. Prison Goal 3: Patient will be able to lift 70# from the floor to waist height to return to normal work activities. Outreach Specialist Goal 4: Patient will be able to push/pull 120# sled to return to normal work activities. Prison Goal 5: Patient will report 70% improvement in overall symptoms and function. Patient Goals : Get his left leg back to being pain-free Minutes Tracking: Time In: 08 Time Out: 911 Minutes: 69 Timed Code Treatment Minutes: 67 Minutes Treatment Charges: Code Total Mins Units Time In/Out [x] Evaluation [x] Low (billed as work hardening) [] Moderate [] High [] Re-Evaluation 30040 31764 [phone] [] Ther Exercise 52723 [] Manual Therapy 88588 [] Unattend Estim 59931 [] Ultrasound 09171 [] Iontophoresis 17442 [] Neuro Sury 87824 [] Aquatics 02373 [] Traction 17890 [] Vasopneumatic/Cold 65903 [x] Work Hardening 53562 27 1 [phone] [] FCE 27076 Total Treatment time 67 mins Total Time of Time Codes 67 mins Blue Hearn, PT , DPT, OCS, Cert. DN 02/08/2025 documented in this encounterBon [facility] History of Present illness Narrative* Tacho George - 01/31/2025 1:30 PM EDT [facility] Inpatient/Observation/Outpatient Rehabilitation Date: 01/31/2025 Patient Name: Taz Mckeon [] Inpatient Acute/Observation [x] Outpatient : 2000 Plan of Care/Recert ends [] Pt refused/declined therapy at this time due to: [x] Pt cancelled due to: [] No Reason Given [] Sick/ill [x] Other: got called into work due to calloffs. [] Evaluation held by RN/Provider/Physical Therapist due to: [] High Heart Rate [] High Blood Pressure [] Orthopedic Consult [] Hgb < 7 [] Other: [] Pt ordered brace per physician request: [] Proper fit will be completed and education for wearing/skin checks [] Pt does not require skilled services due to: Therapist/Char Dust Cleaner And Salvager will attempt to see this patient, at our earliest opportunity. Tacho George Date: 01/31/2025 Cosigned by Blue Hearn, PT at 01/31/2025 9:56 AM EDT documented in this encounterBon [facility] NotePatient Education Gastroenterology Viral Gastroenteritis, Adult Viral gastroenteritis [...] including rotavirus and norovirus. Norovirus is the mostcommon cause in adults. You can get sick [...] than 2 years. ??? Live in a residential. ??? Travel on cruise ships. What are the signs or symptoms? Symptoms of this condition start suddenly 1?3 days after exposure to a virus. Symptoms may last fora few days or for as long as [...] focus of treatment is to prevent dehydration andrestore lost fluids (rehydration). This condition may be [...] caffeine, such as energy drinks, sports drinks, andsoda. ??? Avoid spicy or fatty foods. ??? Avoid alcohol. General instructions ??? Wash your hands often, especially after having diarrhea or vomiting. If soap and water are not available, use hand fruit and vegetable parer. ??? Make sure that all people in your household wash their hands well and often. ??? Take kjdi-ile-wjivhru and prescription medicines only as told by [...] be an emergency. Get help right away. C (more content not included)...[facility]10-27-2024 NoteNurse Consultation Note Physical Exam Pt came in with knee pain, stated it was a work injury, instructed pt he had to be seen at the hospital. Medications No active medications Allergies No Known Allergies No Known Medication Allergies Immunizations Vaccine Date Status SARS-CoV-2 (COVID-19) Ad26 vaccine 08/29/2021 Recorded SARS-CoV-2 (COVID-19) Ad26 vaccine 03/07/2021 [facility]09-14-2024 NoteMicrobiology PROCEDURE: Strep Screen Culture [R1] SOURCE: Throat BODY SITE: COLLECTED DATE/TIME: 06/03/2024 10:28 EDT RECEIVED DATE/TIME: 06/03/2024 13:34 EDT START DATE/TIME: 06/03/2024 13:34 EDT FREE TEXT SOURCE: [place] RESENDIZ, MARII EMEYR PA-C FINAL REPORTS Final Report [] Verified Date/Time: 06/05/2024 10:58 EDT Streptococcus Group A screen negative Performing Locations R1: This test was performed at: [facility], [address] [place] [address], [id number] , , ZhqyibFort Hamilton HospitalComment on above:Performed By: #### [id number] #### [facility] [address] [place] [address] [id number] NoteMicrobiology PROCEDURE: Strep Screen Culture [R1] SOURCE: Throat BODY SITE: COLLECTED DATE/TIME: 06/03/2024 10:28 EDT RECEIVED DATE/TIME: 06/03/2024 13:34 EDT START DATE/TIME: 06/03/2024 13:34 EDT FREE TEXT SOURCE: MARII ZHOU PA-C, PA-C, FRANCISCO FINAL REPORTS Final Report [] Verified Date/Time: 06/05/2024 10:58 EDT Streptococcus Group A screen negative Performing Locations R1: This test was performed at: [facility], [address] [place] [address], [id number]- , [place], TaeuwrFort Hamilton HospitalComment on above:Performed By: #### [id number] #### [facility] [address] [place] [address] [id number] Evaluation + Plan note Diagnostic Tests Pending * Strep Screen Culture 06/03/24 [facility] 09-12-2024 Hospital Discharge instructions Patient Education 06/03/2024 10:38:50 Pharyngitis, Keaj-sa-Otbl Pharyngitis Pharyngitis is a sore throat (pharynx). This is when there is redness, pain, and swelling in your throat. Most of the time, this condition gets better on its own. In some cases, you may need medicine. What are the causes? An infection from a virus. An infection from bacteria. Allergies. What increases the risk? Being 5 24 years old. Being in crowded environments. These include: ?Daycares. ?Schools. ?Dormitories. Living in a place with cold temperatures outside. Having a weakened disease-fighting (immune) system. What are the signs or symptoms? Symptoms may vary depending on the cause. Common symptoms include: Sore throat. Tiredness (fatigue). Low-grade fever. Stuffy nose. Cough. Headache. Other symptoms may include: Glands in the neck (lymph nodes) that are swollen. Skin rashes. Film on the throat or tonsils. This can be caused by an infection from bacteria. Vomiting. Red, itchy eyes. Loss of appetite. Joint pain and muscle aches. Tonsils that are temporarily bigger than usual (enlarged). How is this treated? Many times, treatment is not needed. This condition usually gets better in 3 4 days without treatment. If the infection is caused by a bacteria, you may be need to take antibiotics. Follow these instructions at home: Medicines Take qxpu-ure-mzpiatx and prescription medicines only as told by your doctor. If you were prescribed an antibiotic medicine, take it as told by your doctor. Do not stop taking the antibiotic even if you start to feel better. Use throat lozenges or sprays to soothe your throat as told by your doctor. Children can get pharyngitis. Do not give your child aspirin. Managing pain To help with pain, try: Sipping warm liquids, such as: ?Broth. ?Herbal tea. ?Warm water. Eating or drinking cold or frozen liquids, such as frozen ice pops. Rinsing your mouth (gargle) with a salt water mixture 3 4 times a day or as needed. ?To make salt water, dissolve 1 tsp (3 6 g) of salt in 1 cup (237 mL) of warm water. ?Do not swallow this mixture. Sucking on hard candy or throat lozenges. Putting a cool-mist humidifier in your bedroom at night to moisten the air. Sitting in the bathroom with the door closed for 5 10 minutes while you run hot water in the shower. General instructions Do not smoke or use any products that contain nicotine or tobacco. If you need help quitting, ask your doctor. Rest as told by your doctor. Drink enough fluid to keep your pee (urine) pale yellow. How is this prevented? Wash your hands often for at least 20 seconds with soap and water. If soap and water are not available, use hand fruit and vegetable parer. Do not touch your eyes, nose, or mouth with unwashed hands. Wash hands after touching these areas. Do not share cups or eating utensils. Avoid close contact with people who are sick. Contact a doctor if: You have large, tender lumps in your neck. You have a rash. You cough up green, yellow-brown, or bloody spit. Get help right away if: You have a stiff neck. You drool or cannot swallow liquids. You cannot drink or take medicines without vomiting. You have very bad pain that does not go away with medicine. You have problems breathing, and it is not from a stuffy nose. You have new pain and swelling in your knees, ankles, wrists, or elbows. These symptoms may be an emergency. Get help right away. Call your local emergency services (911 [facility] [place] Do not wait to see if the symptoms will go away. Do not drive yourself to the hospital. Summary Pharyngitis is a sore throat (pharynx). This is when there is redness, pain, and swelling in your throat. Most of the time, pharyngitis gets better on its own. Sometimes, you may need medicine. If you were prescribed an antibiotic medicine, take it as told by your doctor. Do not stop taking the antibiotic even if you start to feel better. This information is not intended to replace advice given to you by your health care provider. Make sure you discuss any questions you have with your health care provider. Document Revised: 12/05/2021 Document Reviewed: 12/05/2021 [employer] Patient Education 2023 [employer]. 06/03/2024 10:38:47 Viral Respiratory Infection, Lakm-Ku-Vtqv Viral Respiratory Infection A viral respiratory infection is an illness that affects parts of the body that are used for breathing. These include the lungs, nose, and throat. It is caused by a germ called a virus. Some examples of this kind of infection are: A cold. The flu (influenza). A respiratory syncytial virus (RSV) infection. What are the causes? This condition is caused by a virus. It spreads from person to person. You can get the virus if: You breathe in droplets from someone who is sick. You come in contact with people who are sick. You touch mucus or other fluid from a person who is sick. What are the signs or symptoms? Symptoms of this condition include: A stuffy or runny nose. A sore throat. A cough. Shortness of breath. Trouble breathing. Yellow or green fluid in the nose. Other symptoms may include: A fever. Sweating or chills. Tiredness (fatigue). Achy muscles. A headache. How is this treated? This condition may be treated with: Medicines that treat viruses. Medicines that make it easy to breathe. Medicines that are sprayed into the nose. Acetaminophen or NSAIDs, such as ibuprofen, to treat fever. Follow these instructions at home: Managing pain and congestion Take spxa-ojh-andrpab and prescription medicines only as told by your doctor. If you have a sore throat, gargle with salt water. Do this 3 4 times a day or as needed. ?To make salt water, dissolve 1 tsp (3 6 g) of salt in 1 cup (237 mL) of warm water. Make sure thatall the salt dissolves. Use nose drops made from salt water. This helps with stuffiness (congestion). It also helps soften the skin around your nose. Take 2 tsp (10 mL) of honey at bedtime to lessen coughing at night. ?Do not give honey to children who are younger than 1 year old. Drink enough fluid to keep your pee (urine) pale yellow. General instructions Rest as much as possible. Do not drink alcohol. Do not smoke or use any products that contain nicotine or tobacco. If you need help quitting, ask your doctor. Keep all follow-up visits. How is this prevented? Get a flu shot every year. Ask your doctor when you should get your flu shot. Do not let other people get your germs. If you are sick: ?Wash your hands with soap and water often. Wash your hands after you cough or sneeze. Wash hands for at least 20 seconds. If you cannot use soap and water, use hand fruit and vegetable parer. ?Cover your mouth when you cough. Cover your nose and mouth when you sneeze. ?Do not share cups or eating utensils. ?Clean commonly used objects often. Clean commonly touched surfaces. ?Stay home from work or school. Avoid contact with people who are sick during cold and flu season. This is in fall and winter. Get help if: Your symptoms last for 10 days or longer. Your symptoms get worse over time. You have very bad pain in your face or forehead. Parts of your jaw or neck get very swollen. You have shortness of breath. Get help right away if: You feel pain or pressure in your chest. You have trouble breathing. You faint or feel like you will faint. You keep vomiting and it gets worse. You feel confused. These symptoms may be an emergency. Get help right away. Call your local emergency services (911 int [place] Do not wait to see if the symptoms will go away. Do not drive yourself to the hospital. Summary A viral respiratory infection is an illness that affects parts of the body that are used for breathing. Examples of this illness include a cold, the flu, and a respiratory syncytial virus (RSV) infection. The infection can cause a runny nose, cough, sore throat, and fever. Follow what your doctor tells you about taking medicines, drinking lots of fluid, washing your hands, resting at home, and avoiding people who are sick. This information is not intended to replace advice given to you by your health care provider. Make sure you discuss any questions you have with your health care provider. Document Revised: 12/13/2021 Document Reviewed: 12/13/2021 [employer] Patient Education 2023 [employer]. Follow Up Care 06/03/2024 09:12:12 With:NONE, XXXX Address: [phone] When: Unknown [facility] 09-12-2024 NotePatient Education Infectious Disease Pharyngitis Pharyngitis is a sore throat (pharynx). This is when there is redness, pain, and swelling in your throat. Most of the time, this condition gets better on its own. In some cases, you may need medicine. What are the causes? ? An infection from a virus. ? An infection from bacteria. ? Allergies. What increases the risk? ? Being 5?24 years old. ? Being in crowded environments. These include: ? Daycares. ? Schools. ? Dormitories. ? Living in a place with cold temperatures outside. ? Having a weakened disease-fighting (immune) system. What are the signs or symptoms? Symptoms may vary depending on the cause. Common symptoms include: ? Sore throat. ? Tiredness (fatigue). ? Low-grade fever. ? Stuffy nose. ? Cough. ? Headache. Other symptoms may include: ? Glands in the neck (lymph nodes) that are swollen. ? Skin rashes. ? Film on the throat or tonsils. This can be caused by an infection from bacteria. ? Vomiting. ? Red, itchy eyes. ? Loss of appetite. ? Joint pain and muscle aches. ? Tonsils that are temporarily bigger than usual (enlarged). How is this treated? Many times, treatment is not needed. This condition usually gets better in 3?4 days without treatment. If the infection is caused by a bacteria, you may be need to take antibiotics. Follow these instructions at home: Medicines ? Take rsvk-gjx-pksucdf and prescription medicines only as told by your doctor. ? If you were prescribed an antibiotic medicine, take it as told by your doctor. Do not stop takingthe antibiotic even if you start to feel better. ? Use throat lozenges or sprays to soothe your throat as told by your doctor. ? Children can get pharyngitis. Do not give your child aspirin. Managing pain To help with pain, try: ? Sipping warm liquids, such as: ? Broth. ? Herbal tea. ? Warm water. ? Eating or drinking cold or frozen liquids, such as frozen ice pops. ? Rinsing your mouth (gargle) with a salt water mixture 3?4 times a day or as needed. ? To make salt water, dissolve ??1 tsp (3?6 g) of salt in 1 cup (237 mL) of warm water. ? Do not swallow this mixture. ? Sucking on hard candy or throat lozenges. ? Putting a cool-mist humidifier in your bedroom at night to moisten the air. ? Sitting in the bathroom with the door closed for 5?10 minutes while you run hot water in the shower. General instructions ? Do not smoke or use any products that contain nicotine or tobacco. If you need help quitting, askyour doctor. ? Rest as told by your doctor. ? Drink enough fluid to keep your pee (urine) pale yellow. How is this prevented? ? Wash your hands often for at least 20 seconds with soap and water. If soap and water are not available, use hand fruit and vegetable parer. ? Do not touch your eyes, nose, or mouth with unwashed hands. Wash hands after touching these areas. ? Do not share cups or eating utensils. ? Avoid close contact with people who are sick. Contact a doctor if: ? You have large, tender lumps in your neck. ? You have a rash. ? You cough up green, yellow-brown, or bloody spit. Get help right away if: ? You have a stiff neck. ? You drool or cannot swallow liquids. ? You cannot drink or take medicines without vomiting. ? You have very bad pain that does not go away with medicine. ? You have problems breathing, and it is not from a stuffy nose. ? You have new pain and swelling in your knees, ankles, wrists, or elbows. These symptoms may be an emergency. Get help right away. Call your local emergency services (911 int [place] ? Do not wait to see if the symptoms will go away. ? Do not drive yourself to the hospital. Summary ? Pharyngitis is a sore throat (pharynx). This is when there is redness, pain, and swelling in yourthroat. ? Most of the time, pharyngitis gets better on its own. Sometimes, you may need medicine. ? If you were prescribed an antibiotic medicine, take it as told by your doctor. Do not stop takingthe antibiotic even if you start to feel better. This information is not intended to replace advice given to you by your health care provider. Make sure you discuss any questions you have with your health care provider. Document Revised: 12/05/2021 Document Reviewed: 12/05/2021 [employer] Patient Education ? 2023 [employer]. Viral Respiratory Infection A viral respiratory infection is an illness that affects parts of the body that are used for breathing. These include the lungs, nose, and throat. It is caused by a germ called a virus. Some examples of this kind of infection are: ? A cold. ? The flu (influenza). ? A respiratory syncytial virus (RSV) infection. What are the causes? This condition is caused by a virus. It spreads from person to person. You can get the virus if: ? You breathe in droplets from someone (more content not included)...[facility]08-05-2024 Hospital Discharge instructions Patient Education 04/26/2024 14:37:22 Hemorrhoids, Wioq-ws-Qznc Hemorrhoids Hemorrhoids are swollen veins that may [...] 3 4 times a day. You may dothis in a bathtub or using a portable sitz bath that fits over the toilet. If told, put ice on the painful area. It may be helpful to use ice between your warm baths. ?Put ice in a plastic bag. ?Place a towel between your skin and the bag. ?Leave the ice on for 20 minutes, 2 3 times a day. General instructions Take vhki-wdy-xogaizr and prescription medicines only as told by [...] provider. Document Revised: 03/20/2022 Document Reviewed: 03/20/2022 [employer] Patient Education 2022 [employer]. 04/26/2024 14:37:18 Constipation, Adult, Iass-we-Fwwr Constipation, Adult Constipation is when a person [...] high in fat and sugar, such as: ?Spanish fries. ?Hamburgers. ?Cookies. ?Candy. ?Soda. Drink enough fluid to keep your pee (urine) pale yellow. General instructions Exercise regularly or as told by your doctor. Try to do 150 minutes of exercise each week. Go to the restroom when you feel like you need to poop. Do not hold it in. Take qbfz-lcq-sfgfzpq and prescription medicines only as told by [...] keep your pee (urine) pale yellow. Take epqq-qml-owwkays and prescription medicines only as told by your doctor. These include any fiber supplements. This information is not intended to replace advice given to you by your health care provider. Make sure you discuss any questions you have with your health care provider. Document Revised: 07/26/2020 Document Reviewed: 07/26/2020 [employer] Patient Education 2022 [employer]. [facility] 08-05-2024 NotePatient Education Gastroenterology Hemorrhoids Hemorrhoids are swollen veins [...] using a flexible tube with a camera onthe end (sigmoidoscopy or colonoscopy). How is this [...] times a day. General instructions ? Take nepu-xqm-hlvkbav and prescription medicines only as told by [...] provider. Document Revised: 03/20/2022 Document Reviewed: 03/20/2022 [employer] Patient Education ? 2022 [employer]. Constipation, Adult Constipation is when a person has trouble pooping (having a bowel movement). When you have this condition, you may poop fewer than 3 times a week. Your poop (stool) may also be dry, hard, or bigger than normal. Follow these instructions at home: Eating and drinking ? Eat foods that have a (more content not included)...[facility]06-23-2024 NoteMicrobiology PROCEDURE: Strep Screen Culture [R1] SOURCE: Throat BODY SITE: COLLECTED DATE/TIME: 03/12/2024 11:00 EDT RECEIVED DATE/TIME: 03/12/2024 11:56 EDT START DATE/TIME: 03/12/2024 11:56 EDT FREE TEXT SOURCE: ZHOUMARII ZHONG PA-C, PA-C, FRANCISCO FINAL REPORTS Final Report [] Verified Date/Time: 03/14/2024 10:11 EDT Streptococcus Group A screen negative Performing Locations R1: [facility], [address] [place] [address], [id number] [place] [address], LnvxpgFort Hamilton HospitalComment on above:Performed By: #### [id number] #### [address] [id number] NoteMicrobiology PROCEDURE: Strep Screen Culture [R1] SOURCE: Throat BODY SITE: COLLECTED DATE/TIME: 03/12/2024 11:00 EDT RECEIVED DATE/TIME: 03/12/2024 11:56 EDT START DATE/TIME: 03/12/2024 11:56 EDT FREE TEXT SOURCE: MARII ZHOU PA-C, PA-C, FRANCISCO FINAL REPORTS Final Report [] Verified Date/Time: 03/14/2024 10:11 EDT Streptococcus Group A screen negative Performing Locations R1: This [facility] was performed at: [facility], [address] [place] [address], [id number] [place] [address], Jnvvyv[address] Castro StreetComment on above:Performed By: #### [id number] #### [address] [id number] Hospital Discharge instructions Patient Education 03/12/2024 12:52:53 [...] includes pulmonary embolism, chronic obstructive pulmonary disease, andcystic fibrosis. ?Long-term disease that lowers your body's [...] may appear any time from 2 to 14days after being exposed to the virus. They [...] check for the COVID-19 virus. The most commontests are the PCR test and the antigen [...] managed at home with rest, fluids, and bvqs-jcz-rrbjrcz medicines. Serious symptoms may be treated in a hospital intensive care unit (ICU). Treatment in the ICU may include: ?Supplemental oxygen. Extra oxygen is given through a tube in the nose, a face mask, or a ward. ?Medicines. These may include: ?Antivirals, such as monoclonal antibodies. These help your body fight off certain viruses that cancause disease. ?Anti-inflammatories, such as corticosteroids. These reduce [...] water are not available, use alcohol-based hand fruit and vegetable parer. Make sure that all people in your household wash their hands well and often. Cough or sneeze into a tissue or your sleeve or elbow. Do not cough or sneeze into your hand or into the air. Where to find more information Centers for Disease Control and Prevention: www.cdc.gov/coronavirus World Health Organization: www.who.int/health-topics/coronavirus Get help right away if: You have [...] range from mild to severe. Some people witha severe COVID-19 infection develop severe disease. The virus that causes COVID-19 can spread from person to person through droplets or aerosols from breathing, speaking, singing, coughing, or sneezing. Mild symptoms of COVID-19 can be managed at home with rest, fluids, and xbdk-fdm-mluzgsr medicines. This information is not intended to replace advice given to you by your health care provider. Make sure you discuss any questions you have with your health care provider. Document Revised: 08/29/2022 Document Reviewed: 08/29/2022 [employer] Patient Education 2022 [employer]. Follow Up Care 03/12/2024 09:07:31 With:NONE, XXXX Address: [phone] When: Unknown [facility] 06-21-2024 Evaluation + Plan note Diagnostic Tests Pending * Strep Screen Culture 03/12/24 [facility]06-21-2024 NoteInfectious Disease COVID-19 COVID-19, or coronavirus disease 2019, [...] may appear any time from 2 to 14days after being exposed to the virus. They [...] check for the COVID-19 virus. The most commontests are the PCR test and the antigen [...] managed at home with rest, fluids, and vrvc-rkv-rwsydjq medicines. ? Serious symptoms may be treated in a hospital intensive care unit (ICU). Treatment in the ICU mayinclude: ? Supplemental oxygen. Extra oxygen is given [...] condition. ? You should (more content not included)...[facility]01-09-2024 Evaluation note* Encounter Date Diagnosis Assessment Notes Treatment Notes Treatment Clinical Notes Sep, Elevated bilirubin (ICD-10 - R17) Patient labs were normal except bilirubin and liver enzymes Patient could possibly have Gilbert's syndrome RTO 1 year with labs [facility] Other 11-22-2023 Evaluation note* Encounter Date Diagnosis [...] MORE FRUITS AND VEGETABLES IN HIS DIET. [facility] Other 08-28-2021 Hospital Discharge instructions* Instructions* Alexander Mustafa APRN - CNP - 05/19/2021 Images from the original note were not included. Return to Work Form 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 It is your employer's responsibility to [...] Other Restrictions/Comments: __ ED Provider Signature: Alexander Mustafa APRN PHOTOGRAPHY TEACHER Work injuries require treatment by a [facility] certified provider. If follow-up care is needed please call one of the [facility] Health locations below. [place]: [phone], [address], [place] [address] [place]: [phone] [address] [place] [address] [place]: [phone] [place] [address] [place]: [phone] [address], [place] [address] [place]: [phone], [place] [address] * Attachments The following attachments cannot be sent through Care Everywhere. * Contusion (Yemeni) * Foot Pain (Yemeni) [facility] Work Phone[facility] Consult note* Clinical Note Date No Information [facility] Work Phone: Discharge summary* Clinical Note Date No Information [facility] Work Phone: Evaluation + Plan note No data available for this section [facility]* Diagnosis Contusion of left heel, initial encounter- Primary documented in this encounter [facility] Work Phone: Evaluation noteNo assessment information available [facility] Work Phone: Evaluation noteNo InformationNort shipbeat Other Evaluation note* Diagnosis Onset Date Resolution Status Bloating acute Constipation acute [facility] Work Phone: Evaluation note* Diagnosis Pain Generalized pain documented in this encounter [facility] [employer] [facility]* Diagnosis Contusion of left knee, initial encounter Sprain of patella, left, initial encounter documented in this encounter [facility] Type Assessment Date No Information [facility] Work Phone: History and physical note* Clinical Note Date No Information [facility] Work Phone: History general Narrative - Reported* Type Description Date Surgical History wisdom teeth extract Surgical History tonsillectomy and adenoidectomy Surgical History ULNER NERVE SURGERY- RIGHT ARM Hospitalization History SEE ABOVE [facility] Other History of Past illness Narrative* Condition Effective Dates (start - stop) O utcome No Information [facility] Work Phone: History of Present illness Narrative* Encounter Date Complaint History Of Prese nt Illness No Information [facility] Work Phone: Hospital Discharge instructions No data available for this section [facility]* Date Instruction Additional Infor mation No Information [facility] Work Phone: Progress note No data available for this section [facility]* Clinical Note Date No Information [facility] Work Phone: Reason for referral (narrative)* Reason For Referral No Information [facility] Work Phone: Review of systems Narrative - Reported* System Pos/Neg Findings No Information [facility] Work Phone: Summary Purpose Family History Relationship Condition Age at Onset Recorded Date/T jonathan mother Diabetes mellitus Unknown Family Member Type Diagnosis Age At Onset No Information Advance Directives Advance Directive Response Recorded Date/ Time Advance Directives No July 2:38pm Advance Directive Response Recorded Date/ Time Advance Directives No July 3:38pm Directive Yes / No Effective Date File Name No Information Chief Complaint and Reason for Visit From encounter dated '04/25/2025 10:33'. PE (chief complaint). Description: PE Chief Complaint R17 Chief Complaint blood in stool/bloat ing Reason for Visit Bloating Constipation Reason for Referral Specialty Diagnoses / Procedures Referred By Clifford t Referred To Contact Radiology Diagnoses Contusion of left knee, initial encounter Sprain of patella, left, initial encounter Procedures MRI KNEE LEFT WO CONTRAST Madonna Agosto, MANAGER CODING - PHOTOGRAPHY TEACHER [address] [place] [address] Referral ID Status Reason Start Date Expiration Date Visits Re quested Visits Authorized [id number] Closed 10/07/2024 10/08/2025 1 1 Additional Source Comments (unrecognized sect ion and content) No Status Records FoundNo Status Records FoundNo Status Records FoundNo Status Records FoundNo Status Records FoundNo Status Records FoundNo Status Records FoundNo Status Records FoundNo Status Records FoundNo Status Records FoundNo Status Records Found INFORMATION SOURCE (unrecogn ized section and content) DATE CREATED AUTHOR 03/10/2021 [facility] DATE CREATED AUTHOR AUTHOR'S ORGANIZ ATION 03/10/2021 [facility] DATE CREATED AUTHOR AUTHOR'S ORGANIZ ATION 01/17/[address] [facility] DATE CREATED AUTHOR AUTHOR'S ORGANIZ ATION 09/23/2023 [facility] DATE CREATED AUTHOR AUTHOR'S ORGANIZ ATION 03/14/2024 [facility] DATE CREATED AUTHOR AUTHOR'S ORGANIZ ATION 03/25/2024 [facility] DATE CREATED AUTHOR AUTHOR'S ORGANIZ ATION 06/05/2024 Martin [facility] [facility] DATE CREATED AUTHOR AUTHOR'S ORGANIZ ATION 06/07/2024 [facility] DATE CREATED AUTHOR AUTHOR'S ORGANIZ ATION 03/24/2025 [facility] DATE CREATED AUTHOR AUTHOR'S ORGANIZ ATION 04/11/2025 Annamaria Keller [facility] DATE CREATED AUTHOR AUTHOR'S ORGANIZ ATION 04/27/2025 [facility] Reason for Visit (unrecogniz ed section and content) Reason Comments Ankle Pain Left Specialty Diagnoses / Procedures Referred By Clifford cade Referred To Contact Radiology Diagnoses Contusion of left knee, initial encounter Sprain of patella, left, initial encounter Procedures MRI KNEE LEFT WO CONTRAST Madonna Agosto, MANAGER CODING - PHOTOGRAPHY TEACHER [address] [place] [address] Referral ID Status Reason Start Date Expiration Date Visits Re quested Visits Authorized [id number] Closed 10/07/2024 10/08/2025 1 1 Scheduled Active and Recently Administ ered Medications (unrecognized section and content) Medication Order 05/17/2021 05/18/2021 05/19/2021 ibuprofen (ADVIL;MOTRIN) tablet 600 mg (COMPLETED) 600 mg, Oral, ONCE, On 05/19/21 at 2030, For 1 dose, Do not crush or break. 2040 (Given - Provid er: Brandon Giron RN) Care Teams (unrecognized sec tion and content) Team Status: Active Member Role Status Dates Marito Quiñones [facility] Primary Care Provider Active Team Status: Inactive Member Role Status Dates Marito Quiñones [facility] Primary Care Provider Active Blue Hernandez APRN Attending Provider Active Team Status: Inactive Member Role Status Dates Marito Quiñones [facility] Primary Care Provider Active Start: May 03, 2024 End: May 03, 2024 Blue Hernandez APRN Attending Provider Active Start: May 03, 2024 End: May 03, 2024 Name Effective Dates (start - stop) Status Members No Information Goals (unrecognized section and content) Goals may [...] BE BASED ON THE PRIMARY CLINICAL RECORDS. [facility] [employer] provides no warranty or guarantee of the accuracy or completeness of information in this document.
--- NOTE | 2025-05-19 21:47 | XR_ITS ---
[address] [address] Patient Name: MIRIAM MCKEON MRN: [id number] date: 2000 Sex: M Assigned Patient Location: ER Current Patient Location: ER Accession/Order Number: [id number] Exam Date: 05/19/2025 21:55 Report Date: 05/19/2025 22:22 At the request of: JEN SONG MD Procedure: XR foot RT min 3V XR foot RT min 3V 05/19/2025 10:02 PM SIGNS AND SYMPTOMS: ^mid foot pain , crush injury at 8am PROTOCOL: Frontal, lateral, and oblique radiographs of the right foot COMPARISON: None FINDINGS: The bones are in anatomic alignment. The joint spaces are preserved. There is no fracture or dislocation. No significant soft tissue swelling. XR/XR foot RT min 3V IMPRESSION: No acute bony injury. Impression dictated by: Asher Pearson M.D. 05/19/2025 10:22 PM Dictation Location: [place] [address] Electronically authenticated by: [id number] Y Date: 05/19/2025 22:22
--- NOTE | 2025-05-19 21:48 | ED_ITS ---
HPI HPI - Extremity Injury (Lower) General Chief Complaint: Extremity Injury, Lower Stated Complaint: FOOT GOT CRUSHED WITH A PALLET TRACY Time Seen by Provider: 05/19/25 21:44 Source: patient Mode of arrival: walk-in History of Present Illness HPI Narrative: This 25-year-old male presents for evaluation of midfoot pain. The patient states that he was at work at 8 AM and was wearing boots at that time. His righ t foot was run over by a pallet tracy. He states he initially did not notice any pain or swelling but after getting home he noticed some swelling and bruising to the right midfoot. There is no tenderness over the base of the fifth metatarsal. He does not have any ankle or lower leg injury. There was no additional injuries at that time. Related Data Home Medications ?Medication ?Instructions ?Recorded ?Confirmed meloxicam 15 mg tablet mg 05/19/25 Previous Rx's ?Medication ?Instructions ?Recorded polyethylene glycol 3350 17 17 g PO DAILY 7 days #119 grams 04/28/24 gram/dose oral powder (Miralax) prednisone 20 mg tablet 40 mg (2 x 20 mg) PO DAILY 5 days 05/14/24 #10 tabs Allergies Allergy/AdvReac Type Severity Reaction Status Date / Time No Known Drug Allergies Allergy Verified 05/19/25 21:24 Opioid HPI Opioid Management Most Recent Pain and Opioid Data: Last Pain Scale 6 05/19/25, 21:17 Review of Systems ROS Status of ROS 10 or more systems reviewed and unremark able except as noted in history and below [facility] Medical History (Updated 05/19/25 @ 22:42 by Toshia Matos MD) 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) Social History Little interest or pleasure in doing things: not at all Feeling down, depressed, or hopeless: not at all Exam Narrative Exam Narrative: Vital signs and Nursing Notes reviewed: Patient is afebrile with normal pulse, normal blood pressure, he is not hypoxic with pulse ox of 98% on room air General: Awake, alert, oriented, no acute distress, lying comfortably on the stretcher HEENT: Normocephalic atraumatic, mucous membranes are moist and pink, eyes are clear, normal conjunctiva, vision is grossly intact Chest: Lungs are clear to auscultation with good air entry, there is no wheezing rhonchi or rales appreciated no accessory muscle use CVS: Regular rate and rhythm S1-S2, no murmurs rubs or gallops, pulses are brisk and equal bilaterallyed Extremities: Tenderness over the midfoot without any bony deformity, ecchymosis abrasion or swelling. Achilles is intact. There is no tenderness to the medial or lateral malleolus, feet are warm and sensate, patient is able to move all of his toes, dorsalis pedis and posterior tibialis pulses are brisk Skin: Normal in appearance without rash,pallor, petechiae or purpura Neuro: No focal deficits Constitutional Vital Signs, click to edit/add: Last Vital Signs Temp 98.5 F 05/19/25 21:17 Pulse 63 05/19/25 21:17 Resp 16 05/19/25 21:17 BP 133/67 05/19/25 21:17 Pulse Ox 98 05/19/25 21:17 O2 Del Method Room Air 05/19/25 21:17 Course Vital Signs Vital signs: Vital Signs Temperature 98.5 F 05/19/25 21:17 Pulse Rate 63 05/19/25 21:17 Respiratory Rate 16 05/19/25 21:17 Blood Pressure 133/67 05/19/25 21:17 Pulse Oximetry 98 05/19/25 21:17 Oxygen Delivery Method Room Air 05/19/25 21:17 Temperature 98.5 F 05/19/25 21:17 Pulse Rate 63 05/19/25 21:17 Respiratory Rate 16 05/19/25 21:17 Blood Pressure 133/67 05/19/25 21:17 Pulse Oximetry 98 05/19/25 21:17 Oxygen Delivery Method Room Air 05/19/25 21:17 MDM - Extremity Injury (Lower) MDM Narrative Medical decision making narrative: This 25-year-old male presents for evaluation of pain across the top of his right foot after it was run over by a pallet tracy at work at 8 AM. There is no notable swelling, redness ecchymosis or bony deformity. X-ray of the foot was reviewed by radiology. It is negative for acute findings. An Patricio wrap was applied and he was medicated with ibuprofen and will be discharged home with ibuprofen to use as needed. He requested a work note and was given a note for work for tomorrow. He did not claim this is Workmen's Comp. Imaging Data Abdominal x-ray: Radiologist's impression: ITS Impressions Foot X-Ray 05/19/25 21:47 IMPRESSION: No acute bony injury. Impression dictated by: Asher Pearson M.D. 05/19/2025 10:22 PM Dictation [facility] Electron[facility] authenticated by: [id number] Y Date: 05/19/2025 22:22 Discharge Plan Discharge Chief Complaint: Extremity Injury, Lower Clinical Impression: Crush injury of right foot Patient Disposition: Home, Self-Care Time of Disposition Decision: 22:43 Condition: Good Prescriptions / Home Meds: No Action polyethylene glycol 3350 [Miralax] 17 gram/dose powder 17 g PO DAILY 7 Days Qty: 119 0RF prednisone 20 mg tablet 40 mg PO DAILY 5 Days Qty: 10 0RF meloxicam 15 mg tablet Print Language: Pakistani Instructions: Crush Injury (ED) Referrals: Physician,Non-Staff, MD [Primary Care Provider] - 1 week Discharge Date/Time: 05/19/25 23:13
[2025-05-19] MEDS: IBUPROFEN 600 MG TABLET PO (23:00)
== END 2025-05-19 23:13 | disposition home or self-care (01) ==
PROVIDERS: Emergency Provider Emergency Medicine
DX: S97.81XA Crushing injury of right foot, initial encounter (principal); X58.XXXA Exposure to other specified factors, initial encounter
CPT/HCPCS: 73630; 99283

== ENCOUNTER 2025-06-18 21:18 | Emergency (ER) | payer OTHER, MEDICAID, SELFPAY ==
--- OUTSIDE RECORDS SUMMARY | 2024-03-31 06:45 | XMS_ITS ---
Author Organization [facility] es Address [address] [place] [address] Care Team Providers Care Operating Room Tech Name Role Phone Henrry Regalado Primary Care Provider [phone] REASON FOR VISIT NEW PATIENT DENTAL EXAM-REFERRAL FROM [facility] FOR RCT ON TOOTH #14 Encounters Encounter Location Date Provider Diagnosis [place] [place] [address] 03/31/2024 Henrry Regalado Plan Of Treatment No Information Progress Notes * MIRIAM MCKEON GerriDOB:[birth year] (25 yo M)Acc No.[id number]:03/31/2024 Patient: MIRIAM ASCENCIO Provider: Santana Regalado DDS :2000 A ge:24 Y S ex:Male Date:03/31/2024 Address:[address] [place], [place] [id number] Subjective: * Chief Complaints: * 1 . NEW PATIENT DENTAL EXAM-REFERRAL FROM [facility] FOR RCT ON TOOTH #14. * Medical History: Objective: * Vitals: Assessment: Plan: * Treatment: * Images: * Electronic signature of Alfonso Regalado DDS on 06/18/2025 at 09:28 PM EDT Sign off status: Pending * Provider: Santana Regalado DDS Date: 03/31/2024 Generated for Aydin carcamo/Kely/Lucretia on: 06/18/2025 09:28 PM EDT
--- OUTSIDE RECORDS SUMMARY | 2024-07-23 07:00 | XMS_ITS ---
Author Organization [facility] vices Address [address] [place] [id number] Care Team Providers Care Nuclear Medicine Medical Director Name Role Phone Marito Greene Primary Care Provider [phone] REASON FOR VISIT Wellness Encounters Encounter Location Date Provider Diagnosis [place] [address] [place] [address] 07/23/2024 Marito Greene Plan Of Treatment No Information Progress Notes * Taz MCKEONDOB: [birth year] (25 yo M)Acc No.[id number]:07/23/2024 Progress Notes Patient: Taz ASCENCIO Provider: SARA Harrison :2000 A ge:24 Y S ex:Male Date:07/23/2024 Address:[address] [place], [place] [id number] Subjective: * Chief Complaints: * 1 . Wellness. * Medical History: Objective: * Vitals: Assessment: Plan: * Treatment: Care Plan: * Problems: * Billing Information: * Visit Code: * Procedure Codes: * Electronic signature of Chase Greene NP on 06/18/2025 at 09:28 PM EDT Sign off status: Pending * Provider: SARA Harrison Date: 09/22/2023 Generated for Printi ng/Faxing/eTransmitting on: 0 06/18/2025 09:28 PM EDT
--- OUTSIDE RECORDS SUMMARY | 2025-04-25 06:33 | XMS_ITS | Continuity of Care Document ---
Author Organization [facility] Address [address] [place] [address] Phone Care Team Providers Care Kitchen Hand Name Role Phone Dina Alvares DDS Unavailable [...] Diagnoses Date Provider Providers Copied on Encounter [facility], [address] [place] [address], [id number], tel:[phone] Dental Clinic PE (chief complaint) No Information Dia Arroyo. . tel:[phone] [facility], [address] [place] [address], [id number], [place] tel:[phone] Dental Clinic Encounter for screening for dental disorders Dia Arroyo. . tel:[phone] [facility], [address] [place] [address], [id number], [place] tel:[phone] Dental Clinic Encounter for screening for dental disorders Dia Arroyo. . tel:[phone] [facility], [address] [place] [address], [id number], [place] tel:[phone] Dental Clinic er (chief complaint) Encounter for screening for dental disorders Dia Arroyo. . tel:[phone] [facility], [address] [place] [address], [id number], [place] tel:[phone] Dental Clinic dental limited (chief complaint) Encounter for screening for dental disorders Malena Escamillai. [address] [place] [address], [id number], [place]. [phone] [facility], [address] [place] [address], [id number], [place] tel:[phone] Dental Clinic DN (chief complaint) Body mass index [BMI] 23.0-23.9, adultEncounter for screening for dental disorders Dia Vinson. [address] [place] [address], [id number] , [place]. tel:[phone] Family History Family Member Type Diagnosis Age At Onset No Information Payers Payer name Insurance type Covered libertarian ID Authoriza tion(s) No Information Social History Type Description Quantity Date Captured [...] on due Goal Influenza vaccine. Due on Au due Goal Hepatitis C screening. Due o n due Goal Unhealthy drug use screening . Due on due Goal PRAPARE ASSESSMENT. Due on A due Goal Tdap. Due on due Goal Tdap Vaccine. Due on 2024 due Goal Hep A. Due on du e Goal Hepatitis C screening. Due o n due Goal Influenza vaccine. Due on Au due Goal Tdap. Due on due Goal Tdap Vaccine. Due on 2023 due Goal RLP. Due on due Goal [...] Tdap Vaccine. Due on 2023 due Goal RLP. Due on due Goal PRAPARE ASSESSMENT. Due on due Goal Unhealthy drug use screening . Due on due Goal Tdap. Due on due Goal Depression screening. Due on due Goal Influenza vaccine. Due on due Goal Hepatitis C screening. Due o n due Goal Tdap Vaccine. Due on 2023 due Goal Dietary management education , guidance, and counseling completed History Of Present Illness Encounter Date Complaint History Of Prese nt Illness PE PE er er dental limited dental limited DN Functional Status Date Functional Assessmen t No Information Instructions Date Instruction Additional Infor zayra Giving encouragement to exercise Related to Body mass index [BMI] 23.0-23.9, adult Dietary management e ducation, guidance, and counseling Related to Body mass index [BMI] 23.0-23.9, adult Assessments Type Assessment Date No Information Patient Care Teams Name Effective Dates (start - stop) Status Members No Information
--- OUTSIDE RECORDS SUMMARY | 2025-04-25 10:33 | XMS_ITS ---
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 Name Role Phone Garfield Pereira Attending Unavailable CANDELARIO LOONEY Attending Taylor Hernadez Attending Unavailable SERRATO, MARIAN Hernandez Referring Unavailable SERRATO, MARIAN Hernandez Referring Unavailable SERRATO, MARIAN Hernandez Referring Unavailable SERRATO, MARIAN Hernandez Referring Unavailable SERRATO, MARIAN Hernandez Referring Unavailable SERRATO, MARIAN Hernandez Referring Unavailable SERRATO, MARIAN Hernandez Referring Unavailable DUARTE, RICARDO Talley Referring Unavailable DUARTE, RICARDO Talley Referring Unavailable DUARTE, RICARDO Talley Referring Unavailable SERRATO, MARIAN Hernandez Referring Unavailable DUARTE, RICARDO Talley Referring Unavailable SERRATO, MARIAN Hernandez Referring Unavailable Brandonani Dina MCGEE Attending Unavailable PROBLEMS DATE TYPE CONDITION / CODE ATTENDING STATUS [facility] 02/24/2025 Admitting diagnosis Contusion of left lower leg, initial encounter / S80.12XA(ICD-10) [facility] 02/24/2025 Admitting diagnosis Contusion of left knee, initial encounter / S80.02XA(ICD-10) [facility] 02/24/2025 Admitting diagnosis Strain of le ft quadriceps muscle, fascia and tendon, initial encounter / S76.112A(ICD-10) [facility] 10/15/2024 Unknown Contusion of lef t knee, initial encounter / S80.02XA(ICD-10) [facility] 10/15/2024 Unknown Sprain of other specified parts of left knee, initial encounter / S83.8X2A(ICD-10) [facility] 07/19/2024 Unknown Pain, unspecifie d / R52(ICD-10) [facility] 07/19/2024 Admitting diagnosis Sprain of ot her specified parts of left knee, initial encounter / S83.8X2A(ICD-10) NA Active [facility] PROCEDURES No Procedure Records Found RESULTS FAMILY MEDICINE OFFICE/CLINI C NOTE Observed: 11/07/2024 8:53 AM Status: F Source: [facility] Family Medicine Office/Clini c Note Chief Complaint vomiting, diarrhea, abdominal pain HPI Staff 24 year old male presents with nausea, diarrhea, vomiting, abdominal pain, lightheaded, dizzy symptoms began 3 days ago has taken COVID tests at home and they have been neg History of Present Illness I have reviewed and verified the staff HPI to be accurate for this encounter. Portions of this record have been created with voice recognition software. Occasional wrong-word or ???wtuyj-r-cdwx??? substitutions may have occurred due to the inherent limitations of voice recognition software. 24-year-old male presents today with chief complaint of nausea vomiting diarrhea abdominal cramping onset x 3 days ago. Patient states that these symptoms started on Friday. Patient states that he developed nausea vomiting loose stool on Friday states he seemed to have improvement but states anytime he tries to eat something it does not go well. States he is able to tolerate fluids. States he did have abdominal cramping prior to vomiting and loose stools but states that has resolved. Denies any vomiting episodes today. States 1 episode of vomiting yesterday. States he has taken 3 home COVID-19 test which are negative. Denies sick contacts at home but states now his is not feeling well. States a lot of people have been sick at work in which he believes he probably picked this up from work. He has not tried any other modifying factors no fever chills body aches no cough or cold-like symptoms no runny stuffy nose ear pain or sore throat. He has no other concerns at this time. Review of Systems PHQ Score Initial Depression Screen Score: 0 SCORE ROS negative unless otherwise stated in HPI. Physical Exam Vitals & Measurements T: 36.4 ???C(Oral) HR: 51(Peripheral) BP: 118/76 SpO2: 99% HT: 69 in HT: 176 cm WT: 75 kg WT: 165.347 lb BMI: 24.21 General: Well developed, well nourished, in no acute distress Eyes: not assessed Ears: not assessed Nose: not addressed Mouth: not assessed Neck: not assessed Lungs: Lung sounds are clear bilaterally. No wheezing rhonchi or crackles on exam Cardio: S1, S2, regular rhythm. No murmurs gallops or rubs. Abdomen: Bowel sounds are present x 4 quadrants. Abdomen is soft, nontender, nondistended. No rigidity rebound or guarding on exam. Musculoskeletal: not assessed Extremity: not assessed Neurologic: not assessed Skin: not assessed Mental Status: Alert and oriented x3. Normal mood and affect Assessment/Plan I spoke with patient in regards to treatment of viral gastroenteritis. I discussed to send Zofran, nausea medication 1 tablet dissolved under the tongue every 8 hours as needed for nausea or vomiting. Otherwise patient will not will tolerate fluids and small amounts until tolerated discussed when he feels up to eating bland diet including bananas rice applesauce and toast until tolerated.Otherwise should follow-up with PCP or return if needed. Patient agrees and understands plan of care 1. Viral gastroenteritis, (A08.4: Viral intestinal infection, unspecified)Viral gastroenteritis Exam and history consistent with viral gastroenteritis. This illness is self-limiting, no antibiotics necessary at this time. The majority of viral GI cases resolve before 7 days, with the worst of symptoms being within the first 72 hours. Do not take Pepto or Imodium, as this illness needs to run its course. Fluids/rest. Will treat with zofran to help with vomiting, therefore preventing dehydration. Small, bland meals when tolerating. Follow-up with PCP if symptoms persist past 7 days. Seek medical attention immediately for any concerns of severe dehydration, severe abdominal pain, decreased urination. Patient verbalized understanding of treatment plan. Follow-up With When Contact Information NONE, XXXX [phone] Additional Instructions: Patient Education Viral Gastroenteritis, Adult Problem List/Past Medical History Ongoing Anxiety Depression Historical No qualifying data Procedure/Surgical History Extraction of wisdom tooth, Procedure on elbow, Ts and As - Tonsillectomy and adenoidectomy. Medications Zofran ODT 4 mg Tab-Dis, 4 mg= 1 tab(s), Oral, q8hr, PRN Allergies No Known Allergies No Known Medication Allergies Social History Tobacco Never (less than 100 in lifetime) Tobacco Use:. Never Smokeless Tobacco Use:., 11/04/2024 Family History Diabetes mellitus type 1: Mother. Hypertension: Mother. Kidney stone: Sister. Immunizations Vaccine Date Status Comments influenza virus vaccine, inactivated - Not Given Patient Refuses SARS-CoV-2 (COVID-19) Ad26 vaccine 08/29/2021 Recorded SARS-CoV-2 (COVID-19) Ad26 vaccine 03/07/2021 Recorded Result Comment: Electronical ly Signed By: Randall RESENDIZ, Garfield Bower\.br\Date and Time Signed: 11/07/24 08:53 EST PATIENT EDUCATION Observed: 11/07/2024 8:53 AM Status: F Source: [facility] Patient Education Gastroenterology Viral Gastroenteritis, Adult Viral gastroenteritis is also known as the stomach flu. This condition may affect your stomach, small intestine, and large intestine. It can cause sudden watery diarrhea, fever, and vomiting. This condition is caused by many different viruses. These viruses can be passed from person to person very easily (are contagious). Diarrhea and vomiting can make you feel weak and cause you to become dehydrated. You may not be able to keep fluids down. Dehydration can make you tired and thirsty, cause you to have a dry mouth, and decrease how often you urinate. It is important to replace the fluids that you lose from diarrhea and vomiting. What are the causes? Gastroenteritis is caused by many viruses, including rotavirus and norovirus. Norovirus is the most common cause in adults. You can get sick after being exposed to the viruses from other people. You can also get sick by: ??? Eating food, drinking water, or touching a surface contaminated with one of these viruses. ??? Sharing utensils or other personal items with an infected person. What increases the risk? You are more likely to develop this condition if you: ??? Have a weak body defense system (immune system). ??? Live with one or more children who are younger than 2 years. ??? Live in a mcc. ??? Travel on cruise ships. What are the signs or symptoms? Symptoms of this condition start suddenly 1?3 days after exposure to a virus. Symptoms may last for a few days or for as long as a week. Common symptoms include watery diarrhea and vomiting. Other symptoms include: ??? Fever. ??? Headache. ??? Fatigue. ??? Pain in the abdomen. ??? Chills. ??? Weakness. ??? Nausea. ??? Muscle aches. ??? Loss of appetite. How is this diagnosed? This condition is diagnosed with a medical history and physical exam. You may also have a stool test to check for viruses or other infections. How is this treated? This condition typically goes away on its own. The focus of treatment is to prevent dehydration and restore lost fluids (rehydration). This condition may be treated with: ??? An oral rehydration solution (ORS) to replace important salts and minerals (electrolytes) in your body. Take this if told by your health care provider. This is a drink that is sold at pharmacies and retail stores. ??? Medicines to help with your symptoms. ??? Probiotic supplements to reduce symptoms of diarrhea. ??? Fluids given through an IV, if dehydration is severe. Older adults and people with other diseases or a weak immune system are at higher risk for dehydration. Follow these instructions at home: Eating and drinking ??? Take an ORS as told by your health care provider. ??? Drink clear fluids in small amounts as you are able. Clear fluids include: ? Water. ? Ice chips. ? Diluted fruit juice. ? Low-calorie sports drinks. ??? Drink enough fluid to keep your urine pale yellow. ??? Eat small amounts of healthy foods every 3?4 hours as you are able. This may include whole grains, fruits, vegetables, lean meats, and yogurt. ??? Avoid fluids that contain a lot of sugar or caffeine, such as energy drinks, sports drinks, and soda. ??? Avoid spicy or fatty foods. ??? Avoid alcohol. General instructions ??? Wash your hands often, especially after having diarrhea or vomiting. If soap and water are not available, use hand health counselor. ??? Make sure that all people in your household wash their hands well and often. ??? Take mjjv-mvx-xbalysy and prescription medicines only as told by your health care provider. ??? Rest at home while you recover. ??? Watch your condition for any changes. ??? Take a warm bath to relieve any burning or pain from frequent diarrhea episodes. ??? Keep all follow-up visits. This is important. Contact a health care provider if you: ??? Cannot keep fluids down. ??? Have symptoms that get worse. ??? Have new symptoms. ??? Feel light-headed or dizzy. ??? Have muscle cramps. Get help right away if you: ??? Have chest pain. ??? Have trouble breathing or you are breathing very quickly. ??? Have a fast heartbeat. ??? Feel extremely weak or you faint. ??? Have a severe headache, a stiff neck, or both. ??? Have a rash. ??? Have severe pain, cramping, or bloating in your abdomen. ??? Have skin that feels cold and clammy. ??? Feel confused. ??? Have pain when you urinate. ??? Have signs of dehydration, such as: ? Dark urine, very little urine, or no urine. ? Cracked lips. ? Dry mouth. ? Sunken eyes. ? Sleepiness. ? Weakness. ??? Have signs of bleeding, such as: ? Seeing blood in your vomit. ? Having vomit that looks like coffee grounds. ? Having bloody or black stools or stools that look like tar. These symptoms may be an emergency. Get help right away. Call 911. ??? Do not wait to see if the symptoms will go away. ??? Do not drive yourself to the hospital. Summary ??? Viral gastroenteritis is also known as the stomach flu. It can cause sudden watery diarrhea, fever, and vomiting. ??? This condition can be passed from person to person very easily (is contagious). ??? Take an oral rehydration solution (ORS) if told by your health care provider. This is a drink that is sold at pharmacies and retail stores. ??? Wash your hands often, especially after having diarrhea or vomiting. If soap and water are not available, use hand health counselor. This information is not intended to replace advice given to you by your health care provider. Make sure you discuss any questions you have with your health care provider. Document Revised: 07/08/2022 Document Reviewed: 07/08/2022 [employer] Patient Education ? 2023 [employer]. AMBULATORY VISIT SUMMARY Observed: 11/04 11:35 AM Status: F Source: [facility] Ambulatory Visit Summary TAZ MCKEON :2000 Visit Date:11/04/2024 Ambulatory Visit Instructions Your Diagnosis Viral gastroenteritis, Viral gastroenteritis Your Care Team Attending Physician - Randall RESENDIZ, Garfield Bower Primary Care Physician - NONE, XXXX This Is Your Medications List ondansetron (Zofran ODT 4 mg Tab-Dis) Procedures Performed Extraction of wisdom tooth, Procedure on elbow, Ts and As - Tonsillectomy and adenoidectomy. Discharge Vitals Temperature (Oral) 36.4 ???C Heart Rate (Peripheral) 51 Blood Pressure 118/76 Height 176 cm Height 69 in Weight 75 kg Weight 165.347 lb BMI 24.21 Medications What How Much When Why Instructions New ondansetron (Zofran ODT 4 mg Tab-Dis) 1 Tablets By Mouth Every 8 hours as needed for Nausea/Vomiting Viral gastroenteritis Duration: 3 Days Pickup at [facility]/pharmacy #[id number] Pharmacy Information [facility]/pharmacy #[id number]: [address], [place] [id number] [phone] Medications and Immunizations Administered Not Given influenza virus vaccine, inactivated, Patient Refuses Allergies No Known Allergies No Known Medication Allergies Problems Ongoing - Any problem that you are currently receiving treatment for. Anxiety Depression Patient Survey You may receive a survey via text or e-mail asking about your office visit. Please share your experience with us by completing your survey. We appreciate your feedback and thank you for choosing us for your care. PATIENT [place] [facility] [place]ed: 11/04/2024 11:31 AM Status: F Source: [facility] Patient Letter [facility] [place] [address], [place] [id number] November 04, 2024 TAZ MCKEON [address] [address] : 2000 Please excuse TAZ MCKEON from work . Date and/or Time of Absence: From: 11/01/24, 11/02/24, 11/04/24 To: 11/05/24 May return to work on: 11/05/24 Restrictions: None Comments: Please excuse due to an acute illness. Provider Signature: Garfield Pereira PA-C Physician Bradder Martin-Guilherme [address] [place] [address] [place] [address] MRI KNEE LEFT WO CONTRAST Observed: 09/23 1:48 PM Status: F Source: [facility] EXAMINATION: MRI OF THE LEFT KNEE WITHOUT CONTRAST, 10/15/2024 11:38 am TECHNIQUE: Multiplanar multisequence MRI of the left knee was performed without the administration of intravenous contrast. COMPARISON: Left knee radiographs from 07/19/2024. HISTORY: ORDERING SYSTEM PROVIDED HISTORY: Contusion of left knee, initial encounter 24-year-old male with left knee contusion. FINDINGS: MENISCI: Degeneration of the periphery of the posterior horn and body of the medial meniscus. No discrete medial or lateral meniscus tear. Lateral meniscus demonstrates normal morphology and signal characteristics. CRUCIATE LIGAMENTS: Anterior and posterior cruciate ligaments appear continuous/intact. EXTENSOR MECHANISM: Mild distal quadriceps tendinosis. Low-grade interstitial tearing of the distal quadriceps tendon. Patellar retinacula appear intact. Mild inferior patellar tendinosis. LATERAL COLLATERAL LIGAMENT COMPLEX: Popliteus muscle/tendon, iliotibial band, lateral collateral ligament, and biceps femoris appear intact. MEDIAL COLLATERAL LIGAMENT COMPLEX: Medial collateral ligament complex appears intact. KNEE JOINT: Small joint effusion. Grade 2 patellofemoral compartment chondromalacia. Articular cartilage of the medial and lateral compartments appears grossly intact without focal chondral defect. Osseous alignment is normal. No acute fracture or dislocation. BONE MARROW: Bone marrow signal intensity relatively unremarkable. SOFT TISSUES: No sizable Brennan's cyst. Visualized popliteal neurovascular bundle grossly unremarkable. Mild edema in the subcutaneous fat along the anterior knee. IMPRESSION: 1. 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 No meniscal tear. 2. No acute ligamentous injury. 3. Mild inferior patellar tendinosis. 4. Low-grade interstitial tearing of the distal quadriceps tendon. Mild distal quadriceps tendinosis. 5. Small joint effusion. 6. Mild patellofemoral compartment chondromalacia. Interpreted by: Lan Zimmerman MD Signed by: Lan Zimmerman MD 10/15/24 Final result XR KNEE LEFT (3 VIEWS) Observed: 024 2:57 PM Status: F Source: [facility] EXAMINATION: THREE XRAY VIEWS OF THE LEFT KNEE 07/19/2024 12:25 pm COMPARISON: None. HISTORY: ORDERING SYSTEM PROVIDED HISTORY: Pain TECHNOLOGIST PROVIDED HISTORY: [employer]ST[employer] ORDER ID:->[id number] FINDINGS: No radiographic evidence of acute fracture or dislocation seen. The joint spaces appear grossly preserved radiographically. No significant joint effusion seen. No radiopaque foreign body seen IMPRESSION: No radiographic evidence of acute osseous abnormality of the left knee seen. Interpreted by: Alexander Hinojosa MD Signed by: Alexander Hinojosa MD 07/21/24 Final result NURSE CONSULTATION NOTE Observed: 2023 9:14 AM Status: F Source: [facility] Nurse Consultation Note Physical Exam Pt came in with knee pain, stated it was a work injury, instructed pt he had to be seen at the hospital. Medications No active medications Allergies No Known Allergies No Known Medication Allergies Immunizations Vaccine Date Status SARS-CoV-2 (COVID-19) Ad26 vaccine 08/29/2021 Recorded SARS-CoV-2 (COVID-19) Ad26 vaccine 03/07/2021 Recorded ALLERGIES DATE TYPE / CODE NAME / CODE REACTION SEVERITY SOURCE Miscellaneous Allergy/756032441(SNOMED CT) No Known Allergies [facility] Miscellaneous Allergy/015280831(SNOMED CT) No Known Medication Allergies [facility] ENCOUNTERS ADMIT/DISCHARGE ACCOUNT NUMBER ADMITTING ENCOUNTER CLASS LOCATION SOURCE 04/25/2025 [id number] Ambulatory Building:[facility] 03/22/2025/ 5 [id number] Ambulatory [facility] ing:[facility] 03/15/2025/ 5 [id number] Ambulatory Building:[facility] 03/10/2025/ 5 [id number] Ambulatory Building:[facility] 03/08/2025/ 5 [id number] Ambulatory Building:[facility] 03/01/2025/ 5 [id number] Ambulatory Building:[facility] 02/24/2025/ 5 [id number] Ambulatory Building:[facility] 02/22/2025/ 5 [id number] Ambulatory Building:[facility] 02/18/2025/ 5 [id number] Ambulatory Building:[facility] 02/17/2025/ 5 [id number] Ambulatory Building:[facility] 02/11/2025/ 5 [id number] Ambulatory Building:[facility] 02/10/2025 [id number] Ambulatory Building:[facility] 02/09/2025 [id number] Ambulatory Building:[facility] 02/08/2025/ 5 [id number] Ambulatory Building:[facility] 01/31/2025 [id number] Ambulatory Building:[facility] 11/04/2024 [id number] [facility] [place] 11/04/2024/ 5 [id number] [facility] [place] 4 [facility] 10/15/2024/ 5 [id number] Ambulatory Building:[facility] 07/19/2024/ 4 [id number] Ambulatory Building:[facility] 07/19/2024/ 4 [id number] Ambulatory Building:[facility] 07/18/2024/ 4 [id number] [facility] [place] PAYERS ENCOUNTER GUARANTOR PAYER SUBSCRIBER SOURCE 04/25/2025 Taz Bundy: DELLA [address] [place], [place] [address], [place] [address]Vsq: () Primary Insurance:Lizette Fernandes [facility] [address]Policy Number: [id number] Date:[address], [place] [address]IZ: Taz Bundy: [id number] [place] [address]Xdz: (HP) [facility] 04/25/2025 Secondary Insura nce:D Medicaid Wrap - FQHCPolicy Number: [id number] Date: [address] [address]SJ: Taz [facility]: [id number] [place], [place] [address]Xjm: (HP) [facility] 03/22/2025 [facility] MARYVALEDOB: [facility] [address]Tel: ~~(2 3 (HP) Primary Insurance:SELF PAYPolicy Number: Effective Date:1799-09-21 TAZ DORAN [facility] 03/15/2025 TAZ MCKEONDOB: [address] [place], [place] [address]Lfz: (HP) Primary Insurance:[employer] MEDICAL MANAGEMENTPolicy Number: [id number] Date: [facility] [address] [place] [address]JF: [employer] TRANSPORTATIONDOB : [id number] [place], [place] [address]Utx: (HP) [facility] 03/10/2025 TAZ SCHREIBERB: [address] [place], [place] [address]Dxd: (HP) Primary Insurance:[employer] MEDICAL MANAGEMENTPolicy Number: [id number] Date: [facility] [address] [place] [address]AB: [employer] TRANSPORTATIONDOB : [id number] [place], [place] [address]Xhe: (HP) [facility] 03/08/2025 TAZ SCHREIBERB: [address] [place] [place], [place] [address]Iku: (HP) Primary Insurance:[employer] MEDICAL MANAGEMENTPolicy Number: [id number] Date: [facility] [address], [place] [address]JW: [facility] TRANSPORTATIONDOB : [id number] [place], [place] [address]Gdv: (HP) [facility] 03/01/2025 [facility]: [address] [place] [place], [place] [address]Jlz: (HP) Primary Insurance:[employer] MEDICAL MANAGEMENTPolicy Number: [id number] Date: [facility] [address], [place] [address]IK: [employer] TRANSPORT[employer]DOB : [id number] [place], [place] [address]Yks: (HP) [facility] 02/24/2025 [facility]OB: [address] [place] [place], [place] [address]Zsg: (HP) Primary Insurance:[employer] MEDICAL MANAGEMENTPolicy Number: [id number] Date: [facility] [address], [place] [address]MJ: [facility] TRANSPORTATIONDOB : [id number] [place], [place] [address]Eqi: (HP) [facility] 02/22/2025 [facility]OB: [address] [facility] H[facility]ITALJO[facility] [place] [address]Wqb: (HP) Primary Insurance:[employer] MEDICAL MANAGEMENTPolicy Number: [id number] Date: [facility] [address], [place] [address]VH: [employer] TRANSPORTATIONDOB : [id number] [place], [place] [address]Fhx: (HP) [facility] 02/18/2025 [facility]: [address] [facility] [place], [place] [address]Aeh: (HP) Primary Insurance:[employer] MEDICAL MANAGEMENTPolicy Number: [id number] Date: [facility] [address], [place] [address]OV: [employer] TRANSPORTATIONDOB : [id number] [place], [place] [address]Rwj: (HP) [facility] 02/17/2025 [facility]ONDOB: [address] HANSAINT JOSEPH [place], [place] [address]Lfk: (HP) Primary Insurance:[employer] MEDICAL MANAGEMENTPolicy Number: [id number] Date: [facility] [address], [place] [address]HI: [employer] TRANSPORTATIONDOB : [id number] [place], [place] [address]Njc: (HP) [facility] 02/11/2025 [facility]OB: [address] [facility] H[facility]PITALJO[facility] [place], [place] [address]Kfy: (HP) Primary Insurance:[employer] MEDICAL MANAGEMENTPolicy Number: [id number] Date: [facility] [address] 294[address]RY: LEES SUMMIT TRANSPORTATIONDOB : [id number] [place], [place] [address]Waq: (HP) [facility]08/2025 [facility]OND[facility]: [address] [place], [place] [address]Egj: (HP) Primary Insurance:[employer]ICA MEDICAL MANAGEMENTPolicy Number: [id number] Date: [facility] [address] [place] [address]EQ: LEES SUMMIT TRANSPORTATIONDOB : [id number] [place], [place] [address]Pgm: (HP) [facility] 11/04/2024 TAZ MCKEONDOB: [facility] [address]Tel: ~~(2 3 (HP) Primary Insurance:CARESOURCEPol icy Number: [id number] Date:[id number] [address] [place] [id number]: TAZ DORAN [facility] 10/15/2024 TAZ MCKEONDOB: [address] [place], [place] [address]Xbb: (HP) Primary Insurance:PROM[employer]ICA MEDICAL MANAGEMENTPolicy Number: [id number] Date: [facility] [address] [place] [address]SD: [facility] SUMMIT TRANSPORTATIONDOB : [id number] [place], [place] [address]Mxw: (HP) [facility] 07/19/2024 TAZ SCHREIBERB: [address] [place], [place] [address]Icv: (HP) Primary Insurance:PROM[employer]ICA MEDICAL MANAGEMENTPolicy Number: [id number] Date: [facility] [address] [place] [address]QK: LEES SUMMIT TRANSPORTATIONDOB : [id number] [place], [place] [address]Kdm: (HP) [facility] 07/19/2024 TAZ SCHREIBERB: [address] [place] [address]Tzx: (HP) Primary Insurance:PROMEDICA MEDICAL MANAGEMENTPolicy Number: [id number] Date: [address] [place] [address]EP: LEES SUMMIT TRANSPORTATIONDOB : [id number] [place], [place] [address]Jxc: (HP) [facility] 07/18/2024 TAZ MCKEONDOB: [facility] [address]Tel: ~~(2 3 (HP) Primary Insurance:MedicaidPolic y Number: [id number] Date:2022-09-22 TAZ DORAN [facility]
[2025-06-18 21:23] VITALS: BP 132/77; PULSE 50; TEMP 36.9; O2SAT 98; BMI 27.4
--- OUTSIDE RECORDS SUMMARY | 2025-06-18 21:27 | XMS_ITS | Patient Health Record ---
Author Organization [facility] Address [address] [place] [address] Care Team Providers Care Sql Application Developer Name Role Phone PCP, NO Primary Care Provider [facility] Chas Gann Unavailable [phone] Zully Reynoso Unavailable [phone] Allergies No Known Allergies Reason For Referral Reason ALLOWED add dx S76.1 12.. to [facility] for review 11/12/2024 Diagnosis 1 Left knee sprain (S8 3.92XA) Referral Organization [facility] Referring Provider First Name Chas Referring Provider Last Name Oneyda Referring Provider Speciality Orthopedic Surgery Referred Organization [facility] Referred Address [address] ,[place],[address], General Notes Flaquita Fierro 09:17:05 AM > [...] Referral Priority Routine Reason AD 12/08 note [facility] Diagnosis 1 Contusion of left kn ee, initial encounter (S80.02XA) Referral Organization [facility] Referring Provider First Name Chas Referring Provider Last Name Galt Referring Provider Speciality Orthopedic Surgery Referred Organization [facility] Referred Address [address] [place], General Notes Garland Estrada 12/08/2024 07:57:12 AM > Light duty work note, Flaquita iFerro 12/09/2024 09:32:10 AM > faxed note and updated [facility] Referral Priority Routine Reason APPROVED for PT LT l eg with work hardening program Diagnosis 1 Quadriceps muscle ru pture, left, subsequent encounter (S76.112D) Referral Organization [facility] Referring Provider First Name Chas Referring Provider Last Name Galt Referring Provider Speciality Orthopedic Surgery Referred Organization [facility] Referred Address [address] [place],[address],[place] General Notes Garland Estrada 01/19/2025 12:01:46 PM > Work restrictions. Work hardening program through [facility], patient already scheduled for evaluation 01/31/25, Flaquita Fierro 01/20/2025 10:06:38 AM > faxed note, [facility] and c9 for PT, Flaquita Fierro 01/25/2025 09:44:39 AM > rcvd c9 auth for PT, faxed to arianna reina. see attachment Referral Priority Routine Reason AD 03/21 note Diagnosis 1 Quadriceps muscle ru pture, left, subsequent encounter (S76.112D) Referral Organization [facility] Referring Provider First Name Chas Referring Provider Last Name Galt Referring Provider Speciality Orthopedic Surgery Referred Organization [facility] Referred Address [address],[place],[address],[place] General Notes Flaquita Fierro 01:31:34 PM > faxed note and updated [facility] Referral Priority Routine Reason Ad 05/18 note Diagnosis 1 Quadriceps muscle ru pture, left, subsequent encounter (S76.112D) Referral Organization [facility] [facility] Referring Provider First Name Chas Referring Provider Last Name Oneyda Referring Provider Speciality Orthopedic Surgery Referred Organization [facility] [facility] Referred Address [address] [place], General Notes Garland Estrada 05/18/2025 09:02:20 AM > work restrictions, Flaquita Fierro 05/18/2025 02:44:55 PM > faxed note and updated [facility] Referral Priority Routine Social History Tobacco Use: [...] Risk Notes Problem Contusion of left knee (0311322443993 9109) Contusion of left knee, initial encounter (S80.02XA) Active confirmed Problem Contusion of left knee ([id number] 9109) Contusion of left knee, subsequent encounter (S80.02XD) Active confirmed Problem Quadriceps muscle rupture, left, subsequent encounter (S76.112D) Active confirmed Problem Quadriceps tendon tear, left, initial encounter (s76.112A) Active confirmed Vital Signs Height 5'7 in 03/21/2025 Weight 165 lbs 03/21/2025 BMI 25.84 03/21/2025 Encounters Encounter Location Date Provider Diagnosis [facility] [facility] [address] [place] [address] 05/18/2025 Chas Call Quadriceps muscle rupture, left, subsequent encounter S76.112D [facility] [address] [place] [address] 11/08/2024 Chas Call Quadriceps tendon tear, left, initial encounter s76.112A and Contusion of left knee, initial encounter S80.02XA [facility] [facility] [address] [place] [address] 12/08/2024 Zully Reynoso Quadriceps muscle rupture, left, subsequent encounter S76.112D [facility] [facility] [address] [place] [address] 01/19/2025 [place] Quadriceps muscle rupture, left, subsequent encounter S76.112D [facility] [facility] [address] [place] [address] 03/21/2025 Chas [place] Quadriceps muscle rupture, left, subsequent encounter S76.112D [facility] [facility] [address] [place] [address] 06/17/2025 [facility] [place] [address] [place] [address] 04/12/2025 Chas Galt Assessments Encounter Date Diagnosis (ICD Code) Assessment [...] WEEKS 01/19/2025 Next Appt Details Provider Name:Chas Zhao and, 07/20/2025 09:00:00 AM, [address], [place], [address], Insurance Providers Payer Name Payer Address Payer Phone Subscriber Number Group Number Insured Name Patient Relationship to Insured Coverage Start Date Coverage End Date [facility] (Health Mgmt) [address] [place] [phone] DOI 4 MIRIAM MCKEON Self - patient is the insured 4 Medical (General) History Medical History History ICD Code GI Problems:
--- NOTE | 2025-06-18 21:28 | PC.NURSE ---
Pain to left knee, slight swelling to knee, no redness or bruising noted.
--- OUTSIDE RECORDS SUMMARY | 2025-06-18 21:28 | XMS_ITS | Patient Health Record ---
Author Organization [facility] Address [address] [place] [address] Care Team Providers Care Microbial Specialist Name Role Phone Henrry Regalado Primary Care Provider [phone] Reason For Referral No Information Plan Of Treatment No Information Insurance Providers Payer Name Payer Address Payer Phone Subscriber Number Group Number Insured Name Patient Relationship to Insured Coverage Start Date Coverage End Date [employer] [place] [address] [place] [address] [id number] MIRIAM MCKEON Self - patient is the insured 4 Dental W[employer] [facility] [employer] th [address] [place] [address] [id number] MIRIAM MCKEON Self - patient is the insured 4
--- OUTSIDE RECORDS SUMMARY | 2025-06-18 21:28 | XMS_ITS | Patient Health Record ---
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 Stress is when someone feels tense, nervous, anxious, or can't sleep at night because their mind is troubled A little bit patient entered data In the past year have you sp ent more than 2 nights in a row in a long-term, senior living, chcf center, or juvenile correctional facility? No patient [...] Insured Coverage Start Date Coverage End Date [facility] [address] [place] [address] [id number] Taz Hines Self - patient is the insured 3 Medicaid [facility] after [employer] [address] [place] [address] [id number] Taz Hines Self - patient is the insured 3 Medical (General) History Medical History History ICD Code Anxiety F41.9 Depression F32.A Surgical History Surgery Date(Month/Year) tonsillectomy and adenoidectomy wisdom teeth extraction right elbow surgery left elbow surgery planned for 09/02/23 Hospitalization History Reason Date(Month/Year) see surgeries
--- NOTE | 2025-06-18 21:29 | XR_ITS ---
[place] [id number] Patient Name: MIRIAM MCKEON MRN: [id number] date: 2000 Sex: M Assigned Patient Location: ED.MAIN Current Patient Location: Accession/Order Number: [id number] Exam Date: 06/18/2025 21:33 Report Date: 06/19/2025 08:25 At the request of: KARRI GOMEZ MD Procedure: XR knee LT 3V XR knee LT 3V 06/18/2025 9:43 PM SIGNS AND SYMPTOMS: ^injury, acute left knee pain PROTOCOL: 3 views of the left knee COMPARISON: None FINDINGS: The weightbearing and patellofemoral joint spaces are preserved. There is no fracture or dislocation. No significant joint effusion. No soft tissue swelling. XR/XR knee LT 3V IMPRESSION: No acute bony injury. Impression dictated by: Asher Pearson M.D. 06/19/2025 8:25 AM Dictation Location: [employer] Electronically authenticated by: [id number] Y Date: 06/19/2025 08:25
--- NOTE | 2025-06-18 21:53 | ED_ITS ---
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 States 3 days ago he was climbing down the stairs of the truck and tweaked the left knee. States he has done this before and was ok. This time he continues to have discomfort of the knee and is not able to fully flex the knee. He thought his knee was also swollen. No other injury or weakness Related Data Home Medications ?Medication ?Instructions ?Recorded ?Confirmed meloxicam 15 mg tablet mg 05/19/25 Previous Rx's ?Medication ?Instructions ?Recorded polyethylene glycol 3350 17 17 g PO DAILY 7 days #119 grams 04/28/24 gram/dose oral powder (Miralax) prednisone 20 mg tablet 40 mg (2 x 20 mg) PO DAILY 5 days 05/14/24 #10 tabs Allergies Allergy/AdvReac Type Severity Reaction Status Date / Time No Known Drug Allergies Allergy Verified 06/18/25 21:22 Opioid HPI Opioid Management Most Recent Pain and Opioid Data: Last Pain Scale 6 05/19/25, 21:17 Review of Systems ROS Status of ROS 10 or more systems reviewed and unremark able except as noted in history and below [facility] Medical History (Updated 06/18/25 @ 21:59 by Oleksandr Harrington MD) 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) Social History Little interest or pleasure in doing things: not at all Feeling down, depressed, or hopeless: not at all Exam Constitutional Vital Signs, click to edit/add: Last Vital Signs Temp 98.4 F 06/18/25 21:23 Pulse 50 L 06/18/25 21:23 Resp 20 06/18/25 21:23 BP 132/77 06/18/25 21:23 Pulse Ox 98 06/18/25 21:23 O2 Del Method Room Air 06/18/25 21:23 Common normals: no apparent distress, average body habitus, oriented x3, no limitations, healthy appearing, alert and well nourished [facility] Common normals: normocephalic and head/scalp atraumatic Respiratory Common normals: normal respiratory effort, no retractions, no use of accessory muscles and clear to auscultation bilaterally Cardio Common normals: regular rate, regular rhythm, S1 normal heart sound and S2 normal heart sound Extremity Other: left knee grossly normal in appearance. no swelling or discoloration able to flex to 90 degrees. Can fully extend. Neuro Common normals: oriented x3, CN's II-XII intact bilaterally, moves all extremities and no focal motor deficits Psych Appearance: grossly normal Course Vital Signs Vital signs: Vital Signs Temperature 98.4 F 06/18/25 21:23 Pulse Rate 50 L 06/18/25 21:23 Respiratory Rate 20 06/18/25 21:23 Blood Pressure 132/77 06/18/25 21:23 Pulse Oximetry 98 06/18/25 21:23 Oxygen Delivery Method Room Air 06/18/25 21:23 Temperature 98.4 F 06/18/25 21:23 Pulse Rate 50 L 06/18/25 21:23 Respiratory Rate 20 06/18/25 21:23 Blood Pressure 132/77 06/18/25 21:23 Pulse Oximetry 98 06/18/25 21:23 Oxygen Delivery Method Room Air 06/18/25 21:23 MDM - Extremity Injury (Lower) MDM Narrative Medical decision making narrative: injured left knee 3 days ago stepping out of his work truck. Still has pain and now able to fully flex the knee. xray is neg. patient informed of working diagnosis of strain of the knee and advised to follow up with workers comp Discharge Plan Discharge Chief Complaint: Extremity Injury, Lower Clinical Impression: Strain of left knee Patient Disposition: Home, Self-Care Mode of Transportation: Private Vehicle Prescriptions / Home Meds: No Action polyethylene glycol 3350 [Miralax] 17 gram/dose powder 17 g PO DAILY 7 Days Qty: 119 0RF prednisone 20 mg tablet 40 mg PO DAILY 5 Days Qty: 10 0RF meloxicam 15 mg tablet Print Language: [place] Islander Instructions: Knee Pain (ED) Additional Instructions: follow up with worker comp clinic friday Referrals: Physician,Non-Staff, MD [Primary Care Provider] - 1 week Discharge Date/Time: 06/18/25 22:25
== END 2025-06-18 22:25 | disposition home or self-care (01) ==
PROVIDERS: Emergency Provider Internal Medicine
DX: S86.812A Strain of other muscle(s) and tendon(s) at lower leg level, left leg, initial encounter (principal); X58.XXXA Exposure to other specified factors, initial encounter
CPT/HCPCS: 73562; 99283